=== PATIENT | female | born 1945 | race Caucasian/White ===

== ENCOUNTER 2017-12-24 14:13 | Emergency (ER) | payer MEDICARE ==
[2017-12-24] MEDS ORDERED: ACETAMINOPHEN 325 MG TABLET PO ONE (14:20)
[2017-12-24 14:25] VITALS: BP 124/80
--- NOTE | 2017-12-24 15:59 | ER Document Report ---
ED General - General Chief Complaint: Fall Stated Complaint: FALL, KNEE PAIN Time Seen by Provider: 12/24/17 15:28 Mode of Arrival: Wheelchair Information source: Patient Notes: 72-year-old female presents with complaints of knee left foot and ankle pain after mechanical fall while in the shower. Patient denies any numbness weakness. Notes it hurts when she ambulates. Patient denies any other injuries. TRAVEL OUTSIDE OF THE [place] IN LAST 30 DAYS: No - HPI Onset: Just prior to arrival Onset/Duration: Sudden Quality of pain: Achy Severity: Mild Pain Level: 1 Associated symptoms: Body/muscle aches Exacerbated by: Movement, Walking Relieved by: Denies Similar symptoms previously: No Recently seen / treated by doctor: No - Related Data Allergies/Adverse Reactions: Penicillins Allergy (Verified 12/24/17 14:19) Sulfa (Sulfonamide Antibiotics) Allergy (Verified 12/24/17 14:19) Past Medical History - Social History Smoking Status: Current Every Day Smoker Cigarette use (# per day): Yes Chew tobacco use (# tins/day): No Smoking Education Provided: No Frequency of alcohol use: Social Drug Abuse: None Family History: Reviewed & Not Pertinent Patient has suicidal ideation: No Patient has homicidal ideation: No - Past Medical History Cardiac Medical History: Reports: Hx Hypercholesterolemia, Hx Hypertension Pulmonary Medical History: Reports: Hx Asthma, Hx COPD Renal/ Medical History: Denies: Hx Peritoneal Dialysis GI Medical History: Reports: Hx Gastroesophageal Reflux Disease Musculoskeltal Medical History: Reports Hx Arthritis Past Surgical History: Reports: Hx Section, Hx Hysterectomy, Hx Orthopedic Surgery Review of Systems - Review of Systems Notes: REVIEW OF SYSTEMS: CONSTITUTIONAL : Denies fever, chills, or sweats. Denies recent illness. EENT: Denies eye, ear, throat, or mouth pain or symptoms. Denies nasal or sinus congestion or discharge. Denies throat, tongue, or mouth swelling or difficulty swallowing. CARDIOVASCULAR: Denies chest pain. Denies palpitations or racing or irregular heart beat. Denies ankle edema. RESPIRATORY: Denies cough, cold, or chest congestion. Denies shortness of breath, difficulty breathing, or wheezing. GASTROINTESTINAL: Denies abdominal pain or distention. Denies nausea, vomiting , or diarrhea. Denies blood in vomitus, stools, or per rectum. Denies black, tarry stools. Denies constipation. GENITOURINARY: Denies difficulty urinating, painful urination, burning, frequency, blood in urine, or discharge. FEMALE GENITOURINARY: Denies vaginal bleeding, heavy or abnormal periods, irregular periods. Denies vaginal discharge or odor. MUSCULOSKELETAL: Admits left knee left ankle and foot pain SKIN: Denies rash, lesions or sores. HEMATOLOGIC : Denies easy bruising or bleeding. LYMPHATIC: Denies swollen, enlarged glands. NEUROLOGICAL: Denies confusion or altered mental status. Denies passing out or loss of consciousness. Denies dizziness or lightheadedness. Denies headache. Denies weakness or paralysis or loss of use of either side. Denies problems with gait or speech. Denies sensory loss, numbness, or tingling. Denies seizures. PSYCHIATRIC: Denies anxiety or stress. Denies depression, suicidal ideation, or homicidal ideation. ALL OTHER SYSTEMS REVIEWED AND NEGATIVE. PHYSICAL EXAMINATION: GENERAL: Well-appearing, well-nourished and in no acute distress. HEAD: Atraumatic, normocephalic. EYES: Pupils equal round and reactive to light, extraocular movements intact, conjunctiva are normal. ENT: Nares patent, oropharynx clear without exudates. Moist mucous membranes. NECK: Normal range of motion, supple without lymphadenopathy LUNGS: Breath sounds clear to auscultation bilaterally and equal. No wheezes rales or rhonchi. HEART: Regular rate and rhythm without murmurs ABDOMEN: Soft, nontender, nondistended abdomen. No guarding, no rebound. No masses appreciated. Female : deferred Musculoskeletal: knee pain with rom, no laxity,mild left foot pain, no abnormality noted NEUROLOGICAL: Cranial nerves grossly intact. Normal speech, normal gait. Normal sensory, motor exams PSYCH: Normal mood, normal affect. SKIN: Warm, Dry, normal turgor, no rashes or lesions noted. Dictation was performed using [employer] voice recognition software Physical Exam - Vital signs Vitals: Temp Pulse Resp BP Pulse Ox 98.4 F 85 14 124/80 98 12/24/17 14:23 12/24/17 14:23 12/24/17 14:23 12/24/17 14:23 12/24/17 14:23 Course - Re-evaluation Re-evalutation: 12/24/17 16:46 X-rays noted no acute abnormality, no fractures noted soft tissue swelling is seen. Patient will be given pain control copies of imaging have been provided to her she is otherwise stable After performing a Medical Screening Examination, I estimate there is LOW risk for INTRACRANIAL HEMORRHAGE, UNSTABLE SPINE FRACTURE, CENTRAL CORD SYNDROME, CAUDA EQUINA, THORACIC AORTIC DISSECTION, PNEUMOTHORAX, PERFORATED BOWEL, RUPTURED ABDOMINAL AORTIC ANEURYSM, ACUTE TENDON RUPTURE, COMPARTMENT SYNDROME, or OPEN FRACTURE, thus I consider the discharge disposition reasonable. Also, there is no evidence or peritonitis, sepsis, or toxicity. I have reevaluated this patient multiple times and no significant life threatening changes are noted. The patient and I have discussed the diagnosis and risks, and we agree with discharging home to follow-up with their primary doctor with the understanding that symptoms and presentations can change. We also discussed returning to the Emergency Department immediately if new or worsening symptoms occur. We have discussed the symptoms which are most concerning (e.g., bloody stool, fever, changing or worsening pain, vomiting) that necessitate immediate return. - Vital Signs Vital signs: Temp Pulse Resp BP Pulse Ox 98.4 F 85 14 124/80 98 12/24/17 14:23 12/24/17 14:23 12/24/17 14:23 12/24/17 14:23 12/24/17 14:23 - Diagnostic Test Radiology reviewed: Image reviewed - soft tissue swelling for foot, Reports reviewed Discharge - Discharge Clinical Impression: Fall Qualifiers: Encounter type: initial encounter Qualified Code(s): W19.XXXA - Unspecified fall, initial encounter Contusion Qualifiers: Encounter type: initial encounter Contusion area: foot Laterality: left Qualified Code(s): S90.32XA - Contusion of left foot, initial encounter Leg pain Qualifiers: Laterality: left Qualified Code(s): M79.605 - Pain in left leg Condition: Stable Disposition: HOME, SELF-CARE Instructions: Contusion ([facility]) Additional Instructions: Follow up with your physician tomorrow for further care or return to the ED IMMEDIATELY if symptoms worsen or new concerns occur. If you cannot afford to follow up with your primary care physician a list of low cost clinics have been provided at the end of your discharge papers as well. Prescriptions: Oxycodone HCl/Acetaminophen [Percocet 5-325 mg Tablet] 1 - 2 tab PO Q4H PRN #15 tablet PRN Reason:
--- NOTE | 2017-12-24 16:10 | RADIOLOGY REPORT (SQ) ---
EXAM DESCRIPTION: KNEE LEFT 4 VIEW COMPLETED DATE/TIME: 12/24/2017 3:59 pm REASON FOR STUDY: fall COMPARISON: None. NUMBER OF VIEWS: Four views. TECHNIQUE: AP, lateral, and both oblique radiographic images acquired of the left knee. LIMITATIONS: None. FINDINGS: MINERALIZATION: Normal. BONES: No acute fracture or dislocation. No worrisome bone lesions. JOINT: Small effusion. SOFT TISSUES: No soft tissue swelling. No radio-opaque foreign body. OTHER: No other significant finding. IMPRESSION: Small joint effusion. TECHNICAL DOCUMENTATION: JOB ID: [id number] [employer]- All Rights Reserved Reading location - IP/workstation name: [email or web address]
--- NOTE | 2017-12-24 16:11 | RADIOLOGY REPORT (SQ) ---
EXAM DESCRIPTION: ANKLE LEFT COMPLETE COMPLETED DATE/TIME: 12/24/2017 3:59 pm REASON FOR STUDY: fall COMPARISON: None. NUMBER OF VIEWS: Three views. TECHNIQUE: AP, lateral, and oblique radiographic images acquired of the left ankle. LIMITATIONS: None. FINDINGS: MINERALIZATION: Normal. BONES: No acute fracture or dislocation. No worrisome bone lesions. JOINTS: No effusions. SOFT TISSUES: Swelling over lateral ankle. No foreign body. OTHER: Calcaneal spurs. IMPRESSION: Soft tissue injury. TECHNICAL DOCUMENTATION: JOB ID: [id number] [employer]- All Rights Reserved Reading location - IP/workstation name: [email or web address]
--- NOTE | 2017-12-24 16:12 | RADIOLOGY REPORT (SQ) ---
EXAM DESCRIPTION: FOOT LEFT COMPLETE COMPLETED DATE/TIME: 12/24/2017 3:59 pm REASON FOR STUDY: fall COMPARISON: None. NUMBER OF VIEWS: Three views. TECHNIQUE: AP, lateral and oblique radiographic images acquired of the left foot. LIMITATIONS: None. FINDINGS: MINERALIZATION: Normal. BONES: No acute fracture or dislocation. No worrisome bone lesions. JOINTS: No effusions. SOFT TISSUES: No soft tissue swelling. No foreign body. OTHER: No other significant finding. IMPRESSION: NEGATIVE STUDY OF THE LEFT FOOT. NO RADIOGRAPHIC EVIDENCE OF ACUTE INJURY. TECHNICAL DOCUMENTATION: JOB ID: [id number] [employer]- All Rights Reserved Reading location - IP/workstation name: [email or web address]
== END 2017-12-24 17:00 | disposition home or self-care (01) ==
LOC: ER 14:13
DX: S90.32XA Contusion of left foot, initial encounter (principal); M79.605 Pain in left leg; M79.672 Pain in left foot; M25.572 Pain in left ankle and joints of left foot; M79.1 Myalgia; W18.2XXA Fall in (into) shower or empty bathtub, initial encounter; F17.210 Nicotine dependence, cigarettes, uncomplicated; I10 Essential (primary) hypertension; J44.9 Chronic obstructive pulmonary disease, unspecified
CPT/HCPCS: 99283; 73610; 73630; 73562; A9270

== ENCOUNTER 2018-08-05 21:45 | Emergency (ER) | payer MEDICARE ==
[2018-08-05 22:14] LABS: ABSOLUTE LYMPHOCYTES (AUTO) 1.1 10^3/uL (0.5-4.7); ABSOLUTE MONOCYTES (AUTO) 0.6 10^3/uL (0.1-1.4); ABSOLUTE NEUT (AUTO) 9.1 10^3/uL (1.7-8.2); BASOPHILS % (AUTO) 0.4 % (0-2); EOSINOPHILS % (AUTO) 0.3 % (0-6); HEMATOCRIT 45.1 % (36.0-47.0); LYMPHOCYTES % (AUTO) 10.3 % (13-45); MEAN CORPUSCULAR HEMOGLOBIN 27.3 pg (27.0-33.4); MEAN CORPUSCULAR HGB CONC 33.3 g/dL (32.0-36.0); MEAN CORPUSCULAR VOLUME 82 fl (80-97); MONOCYTES % (AUTO) 5.7 % (3-13); PLATELET COUNT 281 10^3/uL (150-450); RED CELL DISTRIBUTION WIDTH 14.2 % (11.5-14.0); SEGMENTED NEUTROPHILS % (AUTO) 83.3 % (42-78); TOTAL CELLS COUNTED % (AUTO) 100 %; WHITE BLOOD COUNT 10.9 10^3/uL (4.0-10.5)
[2018-08-05] MEDS ORDERED: NORMAL SALINE 1000 ML 1,000 ML IV ONE (22:34)
[2018-08-05 22:54] LABS: ALANINE AMINOTRANSFERASE 22 U/L (9-52); ALBUMIN 3.4 g/dL (3.5-5.0); ALKALINE PHOSPHATASE 59 U/L (38-126); ANION GAP 12 (5-19); ASPARTATE AMINO TRANSFERASE 26 U/L (14-36); BILIRUBIN,DIRECT 0.3 mg/dL (0.0-0.4); BILIRUBIN,TOTAL 0.5 mg/dL (0.2-1.3); BLOOD UREA NITROGEN 20 mg/dL (7-20); CALCIUM 7.4 mg/dL (8.4-10.2); CARBON DIOXIDE 20 mmol/L (22-30); CHLORIDE 107 mmol/L (98-107); GLUCOSE 98 mg/dL (75-110); LIPASE 154.5 U/L (23-300); POTASSIUM 4.7 mmol/L (3.6-5.0); SODIUM 138.6 mmol/L (137-145); TOTAL PROTEIN 6.1 g/dL (6.3-8.2)
[2018-08-06 00:39] LABS: APPEARANCE,URINE SLIGHTLY-CLOUDY; BILIRUBIN,URINE NEGATIVE (NEGATIVE); COLOR,URINE YELLOW; GLUCOSE, URINE NEGATIVE (NEGATIVE); KETONES,URINE NEGATIVE (NEGATIVE); LEUKOCYTE ESTERASE,URINE NEGATIVE (NEGATIVE); NITRITE,URINE POSITIVE (NEGATIVE); PROTEIN,URINE NEGATIVE (NEGATIVE); URINE SPECIFIC GRAVITY 1.004; UROBILINOGEN,URINE NEGATIVE mg/dL (<2.0)
[2018-08-06] MEDS ORDERED: NORMAL SALINE 1000 ML 1,000 ML IV ONE ×2 (00:53→00:57)
[2018-08-06] MEDS ORDERED: ONDANSETRON HCL INJ/PF 4 MG/2 ML SDV IV ONE (00:55)
[2018-08-06] MEDS ORDERED: LOPERAMIDE HCL 2 MG CAPSULE PO ONE (00:57)
--- NOTE | 2018-08-06 01:03 | ER Document Report ---
ED General - General Chief Complaint: Diarrhea Stated Complaint: DIARRHEA Time Seen by Provider: 08/05/18 22:05 Notes: Patient is a 73-year old female with a past medical history of hypertension, COPD without oxygen dependence who presents with 3 days of high volume, watery diarrhea as well as 2 episodes of nonbilious vomiting over the past 3 days. The patient denies any associated abdominal pain. She states that she is having more diarrheal bowel movements than she can count. She has not done anything to try to improve her symptoms. Nothing worsens her symptoms. States that her symptoms have been relatively unchanged since onset. She denies associated fever but states that she has felt fatigued and lightheaded. She has not had syncope. She denies associated chest pain or shortness of breath. No recent uses of antibiotics. No known sick contacts. She has not seen her general doctor regarding today's concerns. She denies a history of similar symptoms in the recent past. TRAVEL OUTSIDE OF THE [place] IN LAST 30 DAYS: No - Related Data Allergies/Adverse Reactions: Penicillins Allergy (Verified 08/05/18 22:22) Sulfa (Sulfonamide Antibiotics) Allergy (Verified 08/05/18 22:22) Past Medical History - General Information source: Patient - Social History Smoking Status: Current Every Day Smoker Frequency of alcohol use: None Drug Abuse: None Lives with: Family Family History: Reviewed & Not Pertinent Patient has suicidal ideation: No Patient has homicidal ideation: No - Past Medical History Cardiac Medical History: Reports: Hx Hypercholesterolemia, Hx Hypertension Pulmonary Medical History: Reports: Hx Asthma, Hx COPD Renal/ Medical History: Denies: Hx Peritoneal Dialysis GI Medical History: Reports: Hx Gastroesophageal Reflux Disease Musculoskeletal Medical History: Reports Hx Arthritis Past Surgical History: Reports: Hx Section, Hx Genitourinary Surgery - bladder sling, Hx Hysterectomy, Hx Orthopedic Surgery - left shoulder Review of Systems - Review of Systems Notes: Constitutional: Negative for fever. HENT: Negative for sore throat. Eyes: Negative for visual changes. Cardiovascular: Negative for chest pain. Positive for lightheadedness Respiratory: Negative for shortness of breath. Gastrointestinal: Positive for vomiting and diarrhea Genitourinary: Negative for dysuria. Musculoskeletal: Negative for back pain. Skin: Negative for rash. Neurological: Negative for headaches, weakness or numbness. 10 point ROS negative except as marked above and in HPI. Physical Exam - Vital signs Vitals: Temp Pulse Resp BP Pulse Ox 98.4 F 108 H 17 85/42 L 95 08/05/18 21:53 08/05/18 21:53 08/05/18 21:53 08/05/18 21:53 08/05/18 21:53 Interpretation: Hypotensive, Tachycardic Notes: PHYSICAL EXAMINATION: GENERAL: Appears mildly fatigued but otherwise very well in appearance HEAD: Atraumatic, normocephalic. EYES: Pupils equal round and reactive to light, extraocular movements intact, sclera anicteric, conjunctiva are normal. ENT: nares patent, oropharynx clear without exudates. Dry mucous membranes. NECK: Normal range of motion, supple without lymphadenopathy LUNGS: Breath sounds clear to auscultation bilaterally and equal. No wheezes rales or rhonchi. HEART: Regular tachycardia without murmurs ABDOMEN: Soft, nontender, normoactive bowel sounds. No guarding, no rebound. No masses appreciated. EXTREMITIES: Normal range of motion, no pitting or edema. No cyanosis. NEUROLOGICAL: No focal neurological deficits. Moves all extremities spontaneously and on command. PSYCH: Normal mood, normal affect. SKIN: Warm, Dry, normal turgor, no rashes or lesions noted. Course - Re-evaluation Re-evalutation: 08/06/18 00:59 Patient presents with 3 days of diarrhea that has been watery and high volume and has had 2 episodes of nonbilious vomiting during that time. Patient was initially hypotensive at time of presentation but this has since resolved. The patient has tolerated oral intake without difficulty. She has no focal abdominal pain on exam. Labs otherwise completely unremarkable. Patient is only had one episode of stooling here in the emergency department. She has had improvement of her nausea after receiving IV Zofran. She has received a total of 3 L of IV fluid here in the emergency department and pressures have remained within acceptable limits. Patient has borderline pulse oximetry at 91-92% which she reports is her baseline with her COPD not new or different today. Patient appears most likely have a viral induced gastroenteritis. Clinical history and exam are not consistent with acute biliary pathology, acute hepatitis, acute pancreatitis, or acute appendicitis. At this time will discharge with return precautions and follow-up recommendations. Verbal discharge instructions given a the bedside and opportunity for questions given. Medication warnings reviewed. Patient is in agreement with this plan and has verbalized understanding of return precautions and the need for primary care follow-up in the next 24-72 hours. - Vital Signs Vital signs: Temp Pulse Resp BP Pulse Ox 98 F 94 20 106/57 L 92 08/06/18 02:39 08/05/18 22:15 08/06/18 02:01 08/06/18 02:01 08/06/18 02:01 - Laboratory Result Diagrams: 08/05/18 22:03 08/05/18 22:35 Laboratory results interpreted by me: 08/05/18 08/05/18 08/06/18 22:03 22:35 00:10 WBC 10.9 H RBC 5.50 H RDW 14.2 H Seg Neutrophils % 83.3 H Lymphocytes % 10.3 L Absolute Neutrophils 9.1 H Carbon Dioxide 20 L Est GFR (Non-Af Amer) 51 L Calcium 7.4 L Total Protein 6.1 L Albumin 3.4 L Urine Blood SMALL H Urine Nitrite POSITIVE H Discharge - Discharge Clinical Impression: Dehydration, Vomiting and diarrhea Hypotension Qualifiers: Hypotension type: unspecified hypotension type Qualified Code(s): I95.9 - Hypotension, unspecified Condition: Good Disposition: HOME, SELF-CARE Additional Instructions: Your symptoms are likely due to a viral illness and should resolve in the next several days. You can take [id number] loperamide also known as Imodium as needed for diarrhea per box instructions. Continue to stay hydrated with plenty of solution such as Gatorade or Pedialyte. You are being prescribed Zofran to take as needed for nausea and vomiting. Please return if you develop severe abdominal pain, pass out, become unable to tolerate any oral fluids for 12 more hours, or any other symptoms that are concerning to you. Prescriptions: Ondansetron [Zofran Odt 4 mg Tablet] 1 - 2 tab PO Q4H PRN #15 tab.rapdis PRN Reason: For Nausea/Vomiting
[2018-08-06 02:09] VITALS: BP 106/57
== END 2018-08-06 02:39 | disposition home or self-care (01) ==
LOC: ER 21:45
DX: R19.7 Diarrhea, unspecified (principal); R11.2 Nausea with vomiting, unspecified; E86.0 Dehydration; I95.9 Hypotension, unspecified; R00.0 Tachycardia, unspecified; J44.9 Chronic obstructive pulmonary disease, unspecified; I10 Essential (primary) hypertension; R53.83 Other fatigue; R42 Dizziness and giddiness; F17.200 Nicotine dependence, unspecified, uncomplicated; Z88.0 Allergy status to penicillin; Z88.2 Allergy status to sulfonamides
CPT/HCPCS: 99284; 96361; 96374; 36415; 87045; 87205; 83690; 85025; 80053; 81001; 87493; A9270; J2405; J7030 ×2

== ENCOUNTER 2018-08-06 14:32 | Emergency (ER) | payer MEDICARE ==
[2018-08-06] MEDS ORDERED: NORMAL SALINE 1000 ML 1,000 ML IV ONE (14:51)
--- NOTE | 2018-08-06 14:51 | ER Document Report ---
ED Medical Screen (RME) - General Chief Complaint: Diarrhea Stated Complaint: DIARRHEA Time Seen by Provider: 08/06/18 14:42 Notes: 73-year-old female patient COPD was seen here about 1 in the morning today with diarrhea for several days and some nausea with vomiting. She was quite hypotensive when she arrived. She was given 3 L of IV fluids, and a discharged home with prescription for Zofran. She states she is continued to have the diarrhea, and now has a pressure headache when she coughs. She has not had any further nausea or vomiting. She moved to this area about 1 month ago from [place] and has not established with a local medical doctor. I have greeted and performed a rapid initial assessment of this patient. A comprehensive ED assessment and evaluation of the patient, analysis of test results and completion of the medical decision making process will be conducted by additional ED providers. TRAVEL OUTSIDE OF THE [place] IN LAST 30 DAYS: No - Related Data Allergies/Adverse Reactions: Penicillins Allergy (Verified 08/06/18 14:34) Sulfa (Sulfonamide Antibiotics) Allergy (Verified 08/06/18 14:34) Past Medical History - Social History Chew tobacco use (# tins/day): No Frequency of alcohol use: None Drug Abuse: None - Past Medical History Cardiac Medical History: Reports: Hx Hypercholesterolemia, Hx Hypertension Pulmonary Medical History: Reports: Hx Asthma, Hx COPD Renal/ Medical History: Denies: Hx Peritoneal Dialysis GI Medical History: Reports: Hx Gastroesophageal Reflux Disease Musculoskeltal Medical History: Reports Hx Arthritis Past Surgical History: Reports: Hx Section, Hx Genitourinary Surgery - bladder sling, Hx Hysterectomy, Hx Orthopedic Surgery - left shoulder Physical Exam - Vital signs Vitals: Temp Pulse Resp BP Pulse Ox 98.4 F 96 16 112/57 L 94 08/06/18 14:36 08/06/18 14:36 08/06/18 14:36 08/06/18 14:36 08/06/18 14:36 Course - Vital Signs Vital signs: Temp Pulse Resp BP Pulse Ox 98.4 F 96 16 112/57 L 94 08/06/18 14:36 08/06/18 14:36 08/06/18 14:36 08/06/18 14:36 08/06/18 14:36
[2018-08-06 15:25] LABS: ABSOLUTE LYMPHOCYTES (AUTO) 1.3 10^3/uL (0.5-4.7); ABSOLUTE MONOCYTES (AUTO) 0.7 10^3/uL (0.1-1.4); ABSOLUTE NEUT (AUTO) 5.5 10^3/uL (1.7-8.2); BASOPHILS % (AUTO) 0.2 % (0-2); EOSINOPHILS % (AUTO) 0.3 % (0-6); HEMATOCRIT 41.5 % (36.0-47.0); HEMOGLOBIN 13.7 g/dL (12.0-15.5); LYMPHOCYTES % (AUTO) 17.1 % (13-45); MEAN CORPUSCULAR HEMOGLOBIN 27.5 pg (27.0-33.4); MEAN CORPUSCULAR HGB CONC 33.1 g/dL (32.0-36.0); MEAN CORPUSCULAR VOLUME 83 fl (80-97); MONOCYTES % (AUTO) 8.9 % (3-13); PLATELET COUNT 236 10^3/uL (150-450); RED CELL DISTRIBUTION WIDTH 14.3 % (11.5-14.0); SEGMENTED NEUTROPHILS % (AUTO) 73.5 % (42-78); TOTAL CELLS COUNTED % (AUTO) 100 %; WHITE BLOOD COUNT 7.5 10^3/uL (4.0-10.5)
[2018-08-06] MEDS ORDERED: BENZONATATE 100 MG CAPSULE PO STA (15:32)
[2018-08-06] MEDS ORDERED: METHYLPREDNISOLONE INJ 125 MG/2 ML SDV IV ONE (15:33)
[2018-08-06] MEDS ORDERED: DICYCLOMINE HCL 10 MG CAPSULE PO ONE (15:33)
[2018-08-06] MEDS ORDERED: ONDANSETRON HCL INJ/PF 4 MG/2 ML SDV IV ONE (15:33)
[2018-08-06] MEDS ORDERED: IPRATROPIUM/ALBUTEROL 0.5-2.5 MG/3 ML AMPUL NEB ONE (15:34)
[2018-08-06 15:37] LABS: ALANINE AMINOTRANSFERASE 24 U/L (9-52); ALBUMIN 3.8 g/dL (3.5-5.0); ALKALINE PHOSPHATASE 55 U/L (38-126); ANION GAP 10 (5-19); ASPARTATE AMINO TRANSFERASE 33 U/L (14-36); BILIRUBIN,DIRECT 0.3 mg/dL (0.0-0.4); BILIRUBIN,TOTAL 0.4 mg/dL (0.2-1.3); BLOOD UREA NITROGEN 13 mg/dL (7-20); CALCIUM 7.5 mg/dL (8.4-10.2); CARBON DIOXIDE 23 mmol/L (22-30); CHLORIDE 109 mmol/L (98-107); GLUCOSE 81 mg/dL (75-110); POTASSIUM 4.9 mmol/L (3.6-5.0); SODIUM 141.9 mmol/L (137-145); TOTAL PROTEIN 6.7 g/dL (6.3-8.2)
--- NOTE | 2018-08-06 15:40 | ER Document Report ---
ED General - General Chief Complaint: Diarrhea Stated Complaint: DIARRHEA Time Seen by Provider: 08/06/18 14:42 Mode of Arrival: Ambulatory Information source: Patient, Relative Notes: Patient is a 73-year-old female who returns to the emergency room with a continuing complaint of diarrhea with now also headache and neck pain from coughing. Patient states she was seen here yesterday for having diarrhea for the past several days she was given a lot of fluids and was told to go home which she agreed with and to come back if anything change. Patient is back today because she is not feeling any better has not had a full meal since Wednesday. States anything she eats goes right through her. She also states that she has been going into coughing fits that have caused her to gain a headache and neck pain. She denies any fever denies any vomiting but states she came close to vomiting because of the coughing. She denies chest pain and she also denies shortness of breath. She states she is pretty much baseline for her COPD status. She also interjects that about a year ago she had walking pneumonia for 6 months before it was discovered. TRAVEL OUTSIDE OF THE [place] IN LAST 30 DAYS: No - HPI Onset: Other - 3-4 days Onset/Duration: Gradual, Worse Quality of pain: Achy Severity: Moderate Pain Level: 3 Associated symptoms: Body/muscle aches, Chills, Nonproductive cough, Diarrhea, Headache Exacerbated by: Coughing Relieved by: Denies Similar symptoms previously: Yes Recently seen / treated by doctor: Yes - Related Data Allergies/Adverse Reactions: Penicillins Allergy (Verified 08/06/18 14:34) Sulfa (Sulfonamide Antibiotics) Allergy (Verified 08/06/18 14:34) Past Medical History - General Information source: Patient - Social History Smoking Status: Current Every Day Smoker Cigarette use (# per day): Yes - Patient avoids the answer Chew tobacco use (# tins/day): No Frequency of alcohol use: None Drug Abuse: None Family History: Reviewed & Not Pertinent Patient has suicidal ideation: No Patient has homicidal ideation: No - Past Medical History Cardiac Medical History: Reports: Hx Hypercholesterolemia, Hx Hypertension Pulmonary Medical History: Reports: Hx Asthma, Hx COPD Renal/ Medical History: Denies: Hx Peritoneal Dialysis GI Medical History: Reports: Hx Gastroesophageal Reflux Disease Musculoskeletal Medical History: Reports Hx Arthritis Past Surgical History: Reports: Hx Section, Hx Genitourinary Surgery - bladder sling, Hx Hysterectomy, Hx Orthopedic Surgery - left shoulder Review of Systems - Review of Systems Constitutional: Weakness EENT: Nose congestion, Sinus pressure, Sinus discharge Cardiovascular: No symptoms reported Respiratory: See HPI, Cough, Hurts to breathe, Sputum, Wheezing Gastrointestinal: See HPI, Diarrhea, Nausea, Vomiting Genitourinary: No symptoms reported Female Genitourinary: No symptoms reported Musculoskeletal: Neck pain Skin: No symptoms reported Hematologic/Lymphatic: No symptoms reported Neurological/Psychological: No symptoms reported -: Yes All other systems reviewed and negative Physical Exam - Vital signs Vitals: Temp Pulse Resp BP Pulse Ox 98.4 F 96 16 112/57 L 94 08/06/18 14:36 08/06/18 14:36 08/06/18 14:36 08/06/18 14:36 08/06/18 14:36 Interpretation: Hypotensive - Notes Notes: Patient is a well-nourished well-developed female in no apparent distress. She does appear somewhat uncomfortable though. PHYSICAL EXAMINATION: GENERAL: As stated patient is a well-nourished well-developed female who is in no apparent distress however she does appear somewhat uncomfortable. HEAD: Atraumatic, normocephalic. EYES: Pupils equal round and reactive to light, extraocular movements intact, conjunctiva are normal. ENT: Nares patent, oropharynx clear without exudates. Moist mucous membranes. NECK: Normal range of motion, supple without lymphadenopathy patient does not display any sign of meningismal problems. LUNGS: Auscultation patient's lung johnson show she has bilateral breath sounds breath sounds are moderately to severely decreased throughout both lung johnson. She has noticeable inspiratory expiratory wheeze with a faint amount of rhonchi in the upper airway noted on inspiration. HEART: Regular rate and rhythm without murmurs ABDOMEN: Soft, nontender, nondistended abdomen. No guarding, no rebound. No masses appreciated. Female : deferred Musculoskeletal: Patient displays full range of motion with bilateral lower extremities as well as bilateral upper extremities. DTRs in the lower extremities are normal. DTRs in the upper extremities are normal. NEUROLOGICAL: Normal speech, normal gait. PSYCH: Normal mood, normal affect. SKIN: Warm, Dry, Course - Re-evaluation Re-evalutation: 08/06/18 15:40 She is stated that she is gone is such coughing fits that the top of her head feels like it is going to explode in her neck is got such pain she has a hard time moving it without increasing the pain and discomfort. Given patient's description and how the headache seems to come on after the coughing fits and it is still present along with the description of the severe pain in her neck when she moves and it catches her I felt it necessary to go ahead and perform a CT of the neck as well. Patient's movements have indicated that there is some discomfort and pain. This does not appear to be a meningismal kind of discomfort or pain it is more of a musculoskeletal herniated disc type presentation. Patient does not have any radiculopathy from the cervical pain down either arm. 08/06/18 17:55 Reexamination of patient shows currently that her CT head and neck are negative. Her chest x-ray showed borderline congestion but not calling it CHF. Labs all look great her chemistries were fine her WBC was good. Waiting on a urine at this point. I have gone back and reassess patient she is doing much better after receiving the Solu-Medrol and the neb treatment and the Tessalon Perle. When she thinks about taking a deep breath she starts coughing hard that pain goes to her neck and the head. At this point I am just double checking the urine to make sure there is no UTI or if there is a UTI and we will treat accordingly. I told patient I want her to start doing her neb treatments at home on a regular basis I will end up putting her on Tylenol threes for her cough and she will take him when eat some food. Daughter even admits she looks much better. Patient also states that the Bentyl seems to have slowed down her diarrhea some. I told her we do not want to go from a lot to 0 and have constipation on the other end of it. At this time were waiting for the year and will make a decision on where patient goes at that point. 08/06/18 19:14 patient has actually improved with the Bentyl she was found to have a positive urinary tract infection because she has positive nitrites showing up on her urine. Given that she has also gotten relief with the steroids and her breathing is getting better we are also going to treat this is COPD exacerbation. So patient will get all a few different medications tonight. Daughter is actually very pleased that we were able to find the urinary tract infection and also in the she is getting better. She also prays that the physician that she had last night and the care that she received that as well. Patient also wants to know the name of urologist - Vital Signs Vital signs: Temp Pulse Resp BP Pulse Ox 98.4 F 96 16 112/57 L 94 08/06/18 14:36 08/06/18 14:36 08/06/18 14:36 08/06/18 14:36 08/06/18 14:36 - Laboratory Result Diagrams: 08/06/18 15:00 08/06/18 15:00 Laboratory results interpreted by me: 08/06/18 08/06/18 08/06/18 15:00 15:00 18:30 RDW 14.3 H Chloride 109 H Calcium 7.5 L Urine Blood SMALL H Urine Nitrite POSITIVE H Discharge - Discharge Clinical Impression: Gastroenteritis UTI (urinary tract infection) Qualifiers: Urinary tract infection type: acute cystitis Hematuria presence: with hematuria Qualified Code(s): N30.01 - Acute cystitis with hematuria COPD (chronic obstructive pulmonary disease) Qualifiers: COPD type: COPD with acute exacerbation Qualified Code(s): J44.1 - Chronic obstructive pulmonary disease with (acute) exacerbation Condition: Stable Disposition: HOME, SELF-CARE Instructions: Gastroenteritis (adult) ([facility]), Nitrofurantoin ([facility]), Oral Narcotic Medication ([facility]), Urinary Tract Infection ([facility]), Family Physicians / Practices Additional Instructions: Home and rest. As we discussed to be on a few different medications in order to get you a complete turnaround. I am going to put you on an antibiotic for UTI will give you a Diflucan pill set him again in a yeast infection. 6-year- old inspiratory expiratory wheezing will place you a little short taper of steroids and he must pick pulling machine tender your nebulizer and continued to really do that every 4-6 hours for the next couple of days at minimum. Also put you on a medication for it we gave you here will help stop your cramping of her abdomen. Should you have any concerns or problems return to ER for a recheck. As far as local family practice physician I will give you a handout to you may choose. At this time we do not have a local urology group in [facility]. So you may want to contact the urologist at [facility] urology you can look them up and get their phone number I do not have it currently. Prescriptions: Acetaminophen with Codeine [Tylenol #3 Tablet] 1 each PO Q4HP PRN #20 tablet PRN Reason: Fluconazole [Diflucan] 150 mg PO ONCE PRN #1 tablet PRN Reason: Hyoscyamine Sulfate [Levsin 0.125 Tablet] 0.25 mg PO Q4 PRN #30 tablet PRN Reason: Nitrofurantoin Macrocrystal [Macrodantin] 100 mg PO BID #20 capsule Prednisone 10 mg PO ASDIR 6 Days #1 tab.ds.pk Forms: Elevated Blood Pressure Referrals: [facility] [NO LOCAL MD] - Follow up as needed
--- NOTE | 2018-08-06 17:10 | RADIOLOGY REPORT (SQ) ---
EXAM DESCRIPTION: CT CERVICAL SPINE WITHOUT; CT HEAD WITHOUT COMPLETED DATE/TIME: 08/06/2018 4:30 pm REASON FOR STUDY: Pain; Headache COMPARISON: None. TECHNIQUE: Axial images acquired through the brain and cervical spine without intravenous contrast. Images reviewed with brain, subdural, lung, soft tissue and bone windows. Reconstructed coronal and sagittal MPR images reviewed. Images stored on PACS. All CT scanners at this facility use dose modulation, iterative reconstruction, and/or weight based d osing when appropriate to reduce radiation dose to as low as reasonably achievable (ALARA). [facility]: Dose Right [facility]: CareDose [facility]: Dose Right [facility]: Teradose 4D [facility]: [employer] RADIATION DOSE: CT Rad equipment meets quality standard of care and radiation dose reduction techniq ues were employed. CTDIvol: 21.4 mGy. DLP: 471 mGy-cm.; CT Rad equipment meets quality standard of ca re and radiation dose reduction techniques were employed. CTDIvol: 53.2 mGy. DLP: 1124 mGy-cm. mGy. LIMITATIONS: None. FINDINGS: Brain No hemorrhage or mass or shift. Normal CSF containing spaces. Minimal patchy small vessel disease. Orbits intact. Clear paranasal sinuses. Bones intact. Cervical spine Lower cervical spondylosis. No posttraumatic malalignment or fracture identified. Soft tissues norm al. Lung apices clear. IMPRESSION: 1. No acute intracranial abnormality. Suspect mild chronic small vessel disease. 2. C ervical spine degenerative changes without evidence of fracture. TECHNICAL DOCUMENTATION: JOB ID: [id number] Quality ID # [id number]: Final reports with documentation of one or more dose reduction techniques (e.g., Au tomated exposure control, adjustment of the mA and/or kV according to patient size, use of iterative reconstruction technique) 2010 [employer]- All Rights Reserved Reading location - IP/workstation name: [email or web address]
--- NOTE | 2018-08-06 17:12 | RADIOLOGY REPORT (SQ) ---
EXAM DESCRIPTION: CHEST 2 VIEWS COMPLETED DATE/TIME: 08/06/2018 4:33 pm REASON FOR STUDY: Cough COMPARISON: None. TECHNIQUE: Frontal and lateral radiographic views of the chest acquired. NUMBER OF VIEWS: Two view. LIMITATIONS: None. FINDINGS: LUNGS AND PLEURA: Diffuse mild interstitial changes. No consolidation. No pleural fluid. MEDIASTINUM AND HILAR STRUCTURES: No masses or contour abnormalities. HEART AND VASCULAR STRUCTURES: Heart normal size. No evidence for failure. BONES: No acute findings. HARDWARE: None in the chest. OTHER: No other significant finding. IMPRESSION: Mild interstitial changes in the lungs, chronicity and significance indeterminate. No c onsolidating bacterial pneumonia. No clear evidence that the findings are related to congestive fail ure. TECHNICAL DOCUMENTATION: JOB ID: [id number] [employer]- All Rights Reserved Reading location - IP/workstation name: [email or web address]
[2018-08-06 18:56] LABS: APPEARANCE,URINE SLIGHTLY-CLOUDY; BILIRUBIN,URINE NEGATIVE (NEGATIVE); COLOR,URINE YELLOW; GLUCOSE, URINE NEGATIVE (NEGATIVE); KETONES,URINE NEGATIVE (NEGATIVE); LEUKOCYTE ESTERASE,URINE NEGATIVE (NEGATIVE); NITRITE,URINE POSITIVE (NEGATIVE); PROTEIN,URINE NEGATIVE (NEGATIVE); URINE SPECIFIC GRAVITY 1.009; UROBILINOGEN,URINE NEGATIVE mg/dL (<2.0)
[2018-08-06 19:44] VITALS: BP 108/56
== END 2018-08-06 19:52 | disposition home or self-care (01) ==
LOC: ER 14:32
DX: K52.9 Noninfective gastroenteritis and colitis, unspecified (principal); N30.01 Acute cystitis with hematuria; J44.1 Chronic obstructive pulmonary disease with (acute) exacerbation; R11.2 Nausea with vomiting, unspecified; R51 Headache; M54.2 Cervicalgia; F17.200 Nicotine dependence, unspecified, uncomplicated; E78.00 Pure hypercholesterolemia, unspecified; I10 Essential (primary) hypertension; Z88.0 Allergy status to penicillin; Z88.2 Allergy status to sulfonamides; Z90.710 Acquired absence of both cervix and uterus
CPT/HCPCS: 94640; 99284; 96361; 96374; 96375; 36415; 85025; 80053; 81001; 71046; 70450; 72125; A9270 ×3; J2930; J2405; J7030; J3490; J7620

== ENCOUNTER 2018-08-13 17:31 | Inpatient (IN) | payer MEDICARE ==
--- NOTE | 2018-08-13 18:00 | ER Document Report ---
ED Medical Screen (RME) - General Chief Complaint: General Weakness Stated Complaint: CHILLS Time Seen by Provider: 08/13/18 17:44 Notes: 73-year-old female to emergency department for evaluation of chills and fever. Patient states that she was seen here last week and diagnosed with a urinary tract infection. Has been on antibiotics. Today she cannot stop shaking. Feels cold all over. Increased frequency of urination. Daughter states that she found her on the floor this morning. Patient does not remember this. I have greeted and performed a rapid initial assessment of this patient. A comprehensive ED assessment and evaluation of the patient, analysis of test results and completion of the medical decision making process will be conducted by additional ED providers. TRAVEL OUTSIDE OF THE [place] IN LAST 30 DAYS: No - Related Data Allergies/Adverse Reactions: Penicillins Allergy (Verified 08/13/18 17:34) Sulfa (Sulfonamide Antibiotics) Allergy (Verified 08/13/18 17:34) Past Medical History - Past Medical History Cardiac Medical History: Reports: Hx Hypercholesterolemia, Hx Hypertension Pulmonary Medical History: Reports: Hx Asthma, Hx COPD Renal/ Medical History: Denies: Hx Peritoneal Dialysis GI Medical History: Reports: Hx Gastroesophageal Reflux Disease Musculoskeltal Medical History: Reports Hx Arthritis Past Surgical History: Reports: Hx Section, Hx Genitourinary Surgery - bladder sling, Hx Hysterectomy, Hx Orthopedic Surgery - left shoulder Physical Exam - Vital signs Vitals: Temp Pulse Resp BP Pulse Ox 97.8 F 109 H 20 143/67 H 99 08/13/18 17:45 08/13/18 17:45 08/13/18 17:45 08/13/18 17:45 08/13/18 17:45 Course - Vital Signs Vital signs: Temp Pulse Resp BP Pulse Ox 97.8 F 109 H 20 143/67 H 99 08/13/18 17:45 08/13/18 17:45 08/13/18 17:45 08/13/18 17:45 08/13/18 17:45
[2018-08-13 19:06] LABS: ABSOLUTE BASOPHILS # (AUTO) 0.1 10^3/uL (0.0-0.2); ABSOLUTE EOSINOPHILS # (AUTO) 0.4 10^3/uL (0.0-0.6); ABSOLUTE LYMPHOCYTES (AUTO) 1.2 10^3/uL (0.5-4.7); ABSOLUTE MONOCYTES (AUTO) 1.1 10^3/uL (0.1-1.4); ABSOLUTE NEUT (AUTO) 16.7 10^3/uL (1.7-8.2); BASOPHILS % (AUTO) 0.3 % (0-2); EOSINOPHILS % (AUTO) 2.3 % (0-6); HEMATOCRIT 48.1 % (36.0-47.0); HEMOGLOBIN 15.8 g/dL (12.0-15.5); MEAN CORPUSCULAR HEMOGLOBIN 26.9 pg (27.0-33.4); MEAN CORPUSCULAR HGB CONC 32.8 g/dL (32.0-36.0); MEAN CORPUSCULAR VOLUME 82 fl (80-97); MONOCYTES % (AUTO) 5.7 % (3-13); PLATELET COUNT 267 10^3/uL (150-450); RED BLOOD COUNT 5.88 10^6/uL (3.72-5.28); RED CELL DISTRIBUTION WIDTH 14.2 % (11.5-14.0); SEGMENTED NEUTROPHILS % (AUTO) 85.7 % (42-78); TOTAL CELLS COUNTED % (AUTO) 100 %; WHITE BLOOD COUNT 19.5 10^3/uL (4.0-10.5)
[2018-08-13 19:12] LABS: ALANINE AMINOTRANSFERASE 55 U/L (9-52); ALBUMIN 4.1 g/dL (3.5-5.0); ALKALINE PHOSPHATASE 82 U/L (38-126); ANION GAP 15 (5-19); ASPARTATE AMINO TRANSFERASE 42 U/L (14-36); BILIRUBIN,DIRECT 0.4 mg/dL (0.0-0.4); BILIRUBIN,TOTAL 0.8 mg/dL (0.2-1.3); BLOOD UREA NITROGEN 32 mg/dL (7-20); CALCIUM 8.9 mg/dL (8.4-10.2); CARBON DIOXIDE 28 mmol/L (22-30); CHLORIDE 96 mmol/L (98-107); CREATINE KINASE 22 U/L (30-135); GLUCOSE 113 mg/dL (75-110); POTASSIUM 4.5 mmol/L (3.6-5.0); SODIUM 138.8 mmol/L (137-145); TOTAL PROTEIN 7.6 g/dL (6.3-8.2)
--- NOTE | 2018-08-13 19:38 | RADIOLOGY REPORT (SQ) ---
EXAM DESCRIPTION: CHEST SINGLE VIEW COMPLETED DATE/TIME: 08/13/2018 7:27 pm REASON FOR STUDY: sob COMPARISON: 08/06/2018 EXAM PARAMETERS: NUMBER OF VIEWS: One view. TECHNIQUE: Single frontal radiographic view of the chest acquired. RADIATION DOSE: NA LIMITATIONS: None. FINDINGS: LUNGS AND PLEURA: No opacities, masses or pneumothorax. No pleural effusion. MEDIASTINUM AND HILAR STRUCTURES: No masses. Contour normal. HEART AND VASCULAR STRUCTURES: Heart normal in size. Normal vasculature. BONES: No acute findings. HARDWARE: None in the chest. OTHER: No other significant finding. IMPRESSION: NO ACUTE RADIOGRAPHIC FINDING IN THE CHEST. TECHNICAL DOCUMENTATION: JOB ID: [id number] [employer]- All Rights Reserved Reading location - IP/workstation name: [email or web address]
[2018-08-13 20:12] LABS: A TYPE INFLUENZA AG NEGATIVE (NEGATIVE); B INFLUENZA AG NEGATIVE (NEGATIVE)
[2018-08-13] MEDS ORDERED: RINGERS SOLUTION,LACTATED 2,000 ML IV ONE (20:22)
--- NOTE | 2018-08-13 20:56 | ER Document Report ---
ED General - General Chief Complaint: General Weakness Stated Complaint: CHILLS Time Seen by Provider: 08/13/18 17:44 Notes: Patient is a 73-year old female with a past medical history of COPD, hypertension, hyperlipidemia, who presents with weakness, fatigue, fever, body aches and feeling generally unwell. The patient has been seen on 2 separate occasions in the emergency department for diarrhea and vomiting but had been overall improved from the symptoms over the last 48 hours. Apparently last night she felt so weak she actually laid on the ground her bathroom was unable to get up. She did not sustain any trauma at that point. The patient denies any history of feeling this way in the past. She has not seen her general doctor. She has not trying to improve her symptoms and has not noted things worsen her symptoms. Her history is otherwise limited secondary to her ill appearance and being somewhat lethargic. TRAVEL OUTSIDE OF THE [place] IN LAST 30 DAYS: No - Related Data Allergies/Adverse Reactions: Penicillins Allergy (Verified 08/13/18 18:01) Sulfa (Sulfonamide Antibiotics) Allergy (Verified 08/13/18 18:01) Past Medical History - General Information source: Patient - Social History Smoking Status: Current Every Day Smoker Chew tobacco use (# tins/day): No Frequency of alcohol use: None Drug Abuse: None Lives with: Family Family History: Reviewed & Not Pertinent Patient has suicidal ideation: No Patient has homicidal ideation: No - Past Medical History Cardiac Medical History: Reports: Hx Hypercholesterolemia, Hx Hypertension Pulmonary Medical History: Reports: Hx Asthma, Hx COPD Renal/ Medical History: Denies: Hx Peritoneal Dialysis GI Medical History: Reports: Hx Gastroesophageal Reflux Disease Musculoskeletal Medical History: Reports Hx Arthritis Past Surgical History: Reports: Hx Section, Hx Genitourinary Surgery - bladder sling, Hx Hysterectomy, Hx Orthopedic Surgery - left shoulder Review of Systems - Review of Systems Notes: Constitutional: Positive for fever. HENT: Negative for sore throat. Eyes: Negative for visual changes. Cardiovascular: Negative for chest pain. Respiratory: Positive for cough Gastrointestinal: Positive for diarrhea Genitourinary: Negative for dysuria. Musculoskeletal: Negative for back pain. Skin: Negative for rash. Neurological: Negative for headaches, weakness or numbness. 10 point ROS negative except as marked above and in HPI. Physical Exam - Vital signs Vitals: Temp Pulse Resp BP Pulse Ox 97.8 F 109 H 20 143/67 H 99 08/13/18 17:45 08/13/18 17:45 08/13/18 17:45 08/13/18 17:45 08/13/18 17:45 Interpretation: Tachycardic Notes: PHYSICAL EXAMINATION: GENERAL: Patient is unwell in appearance, pale, somewhat listless HEAD: Atraumatic, normocephalic. EYES: Pupils equal round and reactive to light, extraocular movements intact, sclera anicteric, conjunctiva are normal. ENT: nares patent, oropharynx clear without exudates. Very dry mucous membranes. NECK: Normal range of motion, supple without lymphadenopathy LUNGS: Breath sounds clear to auscultation bilaterally and equal. No wheezes rales or rhonchi. HEART: Regular tachycardia without murmurs ABDOMEN: Soft, nontender, normoactive bowel sounds. No guarding, no rebound. No masses appreciated. EXTREMITIES: Normal range of motion, no pitting or edema. No cyanosis. NEUROLOGICAL: No focal neurological deficits. Moves all extremities spontaneously and on command. PSYCH: Somewhat lethargic but oriented x4 SKIN: Warm, diaphoretic, diminished turgor Course - Re-evaluation Re-evalutation: 08/13/18 20:55 Patient presents with a history and labs consistent with severe sepsis. Patient 's lactate is 4, white count 19.8, noted to be tachycardic and likely febrile the time of my assessment. Probable source of a urinary tract infection. Patient was started on Macrobid approximately 1 week ago although no culture was sent at that time. Patient most likely has pyelonephritis given her clinical history but is in guarded condition at this point as she is somewhat altered, quite weak and will require regular and frequent reassessments. I have immediately ordered 2 L of fluid, cefepime for broad-spectrum coverage, I have asked for additional IV access, have placed the patient on cardiac exercise specialist , and will continue to reassess regularly. 08/13/18 21:54 Patient has spiked a temperature to 103 F rectal. She is tachycardic at 108 bpm. Normotensive 136 and 57. On reassessment she remains somewhat lethargic but does continue to respond appropriately. IV fluid resuscitation and antibiotics are ongoing. Laboratories do note associated acute kidney injury. Awaiting urinalysis. Will continue to reassess. 11/17/18 2230 Patient has begun to have deterioration of her blood pressure. Maps are falling into the upper 60s to low 60s. An additional liter of fluid is being administered. Urinalysis is unremarkable. At this point I am not certain of the patient's source of sepsis. She has had multiple symptoms including cough, abdominal pain, diarrhea. At this point given her progressively worsening symptomology and clinical status will proceed with a CT of the chest abdomen pelvis. If patient does not have response to the fluid bolus she will require placement of central line and initiation of vasopressor agents. I have broadened her antibiotic coverage to also include vancomycin and levofloxacin at this point. 08/14/18 00:08 Patient's blood pressure does continue quite borderline. Current blood pressure is 85/38. Awaiting CT results. Heart rate has improved, currently 95. At this point patient will likely require central line placement for vasopressor infusion. 08/14/18 01:52 Patient blood pressure has stabilized after placement of a right internal jugular central line and new deviation of norepinephrine. CT of the chest abdomen pelvis without any obvious source. Patient's vitals at this point are overall much improved. I have discussed with the hospitalist for admission to the ICU and she has accepted. - Vital Signs Vital signs: Temp Pulse Resp BP Pulse Ox 99.9 F 109 H 23 H 121/54 L 95 08/14/18 01:35 08/13/18 17:45 08/14/18 01:41 08/14/18 01:41 08/14/18 01:41 - Laboratory Result Diagrams: 08/13/18 18:43 08/13/18 18:43 Laboratory results interpreted by me: 08/13/18 08/13/18 08/13/18 18:43 18:43 18:43 WBC 19.5 H RBC 5.88 H Hgb 15.8 H Hct 48.1 H MCH 26.9 L RDW 14.2 H Seg Neutrophils % 85.7 H Lymphocytes % 6.0 L Absolute Neutrophils 16.7 H Chloride 96 L BUN 32 H Creatinine 1.41 H Est GFR ( Amer) 44 L Est GFR (Non-Af Amer) 37 L Glucose 113 H Lactic Acid 4.0 H AST 42 H ALT 55 H Creatine Kinase 22 L Urine Protein 08/13/18 08/13/18 20:00 21:25 WBC RBC Hgb Hct MCH RDW Seg Neutrophils % Lymphocytes % Absolute Neutrophils Chloride BUN Creatinine Est GFR ( Amer) Est GFR (Non-Af Amer) Glucose Lactic Acid AST ALT Creatine Kinase < 20 L Urine Protein 30 H - Diagnostic Test Radiology reviewed: Image reviewed, Reports reviewed Radiology results interpreted by me: 08/14/18 02:02 Chest x-ray 1: No acute infiltrate Chest x-ray 2: Right IJ central line in appropriate position. No pneumothorax - EKG Interpretation by Me Additional EKG results interpreted by me: 08/14/18 02:04 Movement interference of EKG. Sinus tachycardia. Rate 103. No ST elevations, no ST depressions. QTC 471. Procedures - Central Line Right Internal jugular Consent obtained: No - Emergent Central line pre-insertion: Sterile PPE donned, Chloraprep applied, Sterile drapes applied Central line lumen type: Triple Anesthetic type: 1% Lidocaine mL's of anesthesia: 5 Ultrasound guided: Yes CM at insertion site: 28 Line secured with sutures: Yes Central line post-insertion: Blood return from lumens, Biopatch applied, Sutured , Sterile dressing applied, Position confirmed w/ CXR Number of attempts: 2 Complications: No Critical Care Note - Critical Care Note Total time excluding time spent on procedures (mins): 75 Comments: Critical care time spent obtaining history from patient or surrogate, discussions with consultants, development of treatment plan with patient or surrogate, evaluation of patient's response to treatment, examination of patient , ordering and performing treatments and interventions, ordering and review of laboratory studies, re-evaluation of patient's condition, ordering and review of radiographic studies and review of old charts Discharge - Discharge Clinical Impression: Severe sepsis, Septic shock, Body aches, Confusion Condition: Good Disposition: ADMITTED INPATIENT Admitting Provider: Hospitalist Unit Admitted: ICU
[2018-08-13] MEDS ORDERED: CEFEPIME 2 GM/D5W RTU 2 GM/50 ML RTUPB IV ONE (21:00)
[2018-08-13] MEDS ORDERED: ACETAMINOPHEN 325 MG TABLET ONE (21:11)
[2018-08-13] MEDS ORDERED: ACETAMINOPHEN 325 MG TABLET PO ONE (21:20)
[2018-08-13] MEDS ORDERED: IPRATROPIUM/ALBUTEROL 0.5-2.5 MG/3 ML AMPUL NEB ONE (21:54)
[2018-08-13 22:05] LABS: APPEARANCE,URINE CLOUDY; BILIRUBIN,URINE NEGATIVE (NEGATIVE); GLUCOSE, URINE NEGATIVE (NEGATIVE); KETONES,URINE NEGATIVE (NEGATIVE); LEUKOCYTE ESTERASE,URINE NEGATIVE (NEGATIVE); NITRITE,URINE NEGATIVE (NEGATIVE); PROTEIN,URINE 30 mg/dL (NEGATIVE); URINE SPECIFIC GRAVITY 1.013; UROBILINOGEN,URINE NEGATIVE mg/dL (<2.0)
[2018-08-13 22:10] LABS: COLOR,URINE DARK YELLOW
[2018-08-13] MEDS ORDERED: RINGERS SOLUTION,LACTATED 1,000 ML IV ONE (23:25)
[2018-08-13] MEDS ORDERED: DIPHENHYDRAMINE HCL 50 MG/ML VIAL IV ONE (23:40)
[2018-08-13] MEDS ORDERED: VANCOMYCIN HCL INJ 1000 MG VIAL IV ONE (23:45)
[2018-08-14] MEDS ORDERED: LEVOFLOXACIN 750 MG/D5W RTU 750 MG/150 ML RTUPB IV ONE
[2018-08-14] MEDS ORDERED: NOREPINEPHRINE BITARTRATE INJ/PF 4 MG/4 ML SDV IV ONE (00:22)
--- NOTE | 2018-08-14 00:29 | RADIOLOGY REPORT (SQ) ---
EXAM DESCRIPTION: CT CHEST, abdomen and pelvis WITH IV CONTRAST COMPLETED DATE/TME: 08/13/2018 23:26 CLINICAL HISTORY: 73 years, Female, sepsis, cough COMPARISON: None. TECHNIQUE: 474 Images stored on PACS. All CT scanners at this facility use dose modulation, iterative reconstruction, and/or weight based dosing when appropriate to reduce radiation dose to as low as reasonably achievable (ALARA). [facility]: Dose Right [facility]: CareDose [facility]: Dose Right [facility]: Teradose 4D [facility]: [employer] LIMITATIONS: None. FINDINGS: CT chest: The mediastinal vasculature enhances normally. Nonspecific nonenlarged as well as enlarged mediastinal and hilar lymph nodes are present. The largest node is in the subcarinal region and measures 3.6 x 1.7 cm. The heart and pericardium are unremarkable. Small hiatal hernia. Osseous structures of the thorax are grossly intact. No pneumothorax. The visualized airways are patent. Minor dependent atelectasis in each lung base. CT abdomen/pelvis: Osseous structures are grossly intact. Fatty infiltrative change to the liver. The spleen, adrenal glands, pancreas, and kidneys are unremarkable. The gallbladder is present. Postsurgical changes consistent with prior anterior abdominal wall hernia repair. Normal appendix. No gross evidence for bowel obstruction. Surgical clip in the left hemipelvis. Sigmoid diverticulosis without CT evidence for diverticulitis. Mild atheromatous change. IMPRESSION: Nonspecific nonenlarged as well as mildly enlarged lymph nodes of the mediastinum, as above. Consider short-term follow-up to ensure stability and/or resolution. Fatty infiltrative change to the liver. Sigmoid diverticulosis. No CT evidence for diverticulitis TECHNICAL DOCUMENTATION: Quality ID # [id number]: Final reports with documentation of one or more dose reduction techniques (e.g., Automated exposure control, adjustment of the mA and/or kV according to patient size, use of iterative reconstruction technique) 2010 [employer]- All Rights Reserved
[2018-08-14] MEDS ORDERED: DEXTROSE 5%-WATER 250 ML with NOREPINEPHRINE BITARTRATE 4 MG IV PRN ×4 (01:01→03:22)
--- NOTE | 2018-08-14 01:24 | RADIOLOGY REPORT (SQ) ---
EXAM DESCRIPTION: XR CHEST 1 VIEW COMPLETED DATE/TME: 08/14/2018 00:00 CLINICAL HISTORY: 73 years, Female, LINE PLACEMENT COMPARISON: 08/13/2018 chest x-ray NUMBER OF VIEWS: 1 TECHNIQUE: View the chest LIMITATIONS: None. FINDINGS: The heart size is normal. Atheromatous change thoracic aorta. Osteopenia. No pneumothorax. Central venous catheter with the tip likely in the cavoatrial junction. Lungs are clear IMPRESSION: Tip of the central line in the cavoatrial junction. No pneumothorax 2010 [employer]- All Rights Reserved
[2018-08-14] MEDS ORDERED: METOCLOPRAMIDE HCL INJ/PF 10 MG/2 ML SDV IV PRN (03:15)
[2018-08-14] MEDS ORDERED: IPRATROPIUM/ALBUTEROL 0.5-2.5 MG/3 ML AMPUL NEB PRN (03:15)
[2018-08-14] MEDS ORDERED: MAG HYDROX/AL HYDROX/SIMETH SUSP 30 ML UDCUP PO PRN (03:15)
[2018-08-14] MEDS ORDERED: NORMAL SALINE 1000 ML 1,000 ML IV PRN (03:15)
[2018-08-14] MEDS ORDERED: PROMETHAZINE HCL 25 MG TABLET PO PRN (03:15)
[2018-08-14] MEDS ORDERED: VANCOMYCIN HCL 0 MG in DEXTROSE 5%-WATER 250 ML IV NR (03:30)
[2018-08-14] MEDS ORDERED: PIPERACILLIN/TAZOBACTAM 3.375 GM VIAL IV PRN (04:03)
--- NOTE | 2018-08-14 04:43 | PDOC H&P ---
History of Present Illness Admission Date/PCP: 08/14/18 02:11 None Patient complains of: Generalized weakness History of Present Illness: OLIVE BRADEN is a 73 year old female with medical history remarkable for hypertension, COPD not on home oxygen, patient comes complaining of generalized weakness. Patient has been in our facility twice on October 05 and October 06 complaining of profuse diarrhea, nausea, vomiting, generalized weakness,at that time the patient has been sent home with medications but since then she has not been feeling back to her baseline. Diarrhea has resolved but he still complains of worsening cough with clear sputum, wheezing on and off and unfortunately the patient is a smoker of 1 pack/day. Also feels dizzy and weak. Complains that every time she coughs she has neck pain and headaches. Patient tells me that yesterday night she passed out and lay on the floor all night she was able to external by herself with no evident trauma and was laying on her bed since then until about 4 PM and her [id number] found her a little bit of, very weak, apparently she has not changed her clothes for the last 2 or 3 days, ill looking and brought her to the ED. Patient just moved from [place] on July 02. Patient was laying on the bed all day he took her medications at 4 PM. Sent in the emergency department and initially consistent with severe sepsis, her pulse was 109, respiratory 23, temperature 103 rectal. She had also abnormal laboratories with increased white blood cells 19.9 and lactate 4. Her chest x-ray and urinalysis were negative for acute infection. 2 L of IV fluids started along with broad spectrum antibiotics. At some point her blood pressure decreased severely to the systolic in the 60s, central line was placed and is started on Levophed. CT chest abdomen and pelvis was done and was remarkable only for nodules in the subcarinal region. Past Medical History Cardiac Medical History: Reports: Hyperlipidema, Hypertension Pulmonary Medical History: Reports: Chronic Obstructive Pulmonary Disease (COPD) EENT Medical History: Reports: Other - Benign thyroid nodules Renal/ Medical History: Reports: Other - Recurrent UTI with a sling in place GI Medical History: Reports: Gastroesophageal Reflux Disease Musculoskeltal Medical History: Reports: Arthritis Psychiatric Medical History: Reports: Depression, General Anxiety Disorder Past Surgical History Past Surgical History: Reports: Section, Hysterectomy, Orthopedic Surgery - Bilateral shoulder replacement, Other - Bladder sling Social History Information Source: Patient Lives with: Family Smoking Status: Current Every Day Smoker - 1 pack/day Frequency of Alcohol Use: None Hx Recreational Drug Use: No Hx Prescription Drug Abuse: No Past Social History Note: Lives alone and usually is very independent with her ADLs Family History Family History: Brother at 58 years old with myocardial infarction, father with history of rheumatoid arthritis, mother of old age. Parental Family History Reviewed: Yes - As above Children Family History Reviewed: NA Sibling(s) Family History Reviewed.: NA Medication/Allergy Home Medications: Oxycodone HCl/Acetaminophen [Percocet 5-325 mg Tablet] 1 - 2 tab PO Q4H PRN #15 tablet 12/24/17 Acetaminophen with Codeine [Tylenol #3 Tablet] 1 each PO Q4HP PRN #20 tablet 07/14 Fluconazole [Diflucan] 150 mg PO ONCE PRN #1 tablet 08/06/18 Hyoscyamine Sulfate [Levsin 0.125 Tablet] 0.25 mg PO Q4 PRN #30 tablet 08/06/18 Nitrofurantoin Macrocrystal [Macrodantin] 100 mg PO BID #20 capsule 08/06/18 Ondansetron [Zofran Odt 4 mg Tablet] 1 - 2 tab PO Q4H PRN #15 tab.rapdis Prednisone 10 mg PO ASDIR 6 Days #1 tab.ds.pk 08/06/18 Allergies/Adverse Reactions: Iodinated Contrast- Oral and IV Dye Allergy (Severe, Verified 08/14/18 04:31) Swelling of Throat Penicillins Allergy (Verified 08/14/18 04:32) Generalized rash Sulfa (Sulfonamide Antibiotics) Allergy (Verified 08/13/18 18:01) Review of Systems Review of Systems: As outlined in the HPI, others negative Physical Exam Vital Signs: Temp Pulse Resp BP Pulse Ox 99.2 F 109 H 27 H 113/64 92 08/14/18 03:36 08/13/18 17:45 08/14/18 03:36 08/14/18 03:36 08/14/18 03:36 Intake & Output 08/12/18 08/13/18 08/14/18 06:59 06:59 06:59 Weight 85.2 kg Additional comments: General appearance: Well-developed, he is, alert and cooperative, and appears to be ill. Head: Normocephalic Eyes: PEERL, EOMI, vision is grossly intact. Ears: External auditory canal and tympanic membranes clear, hearing grossly intact. Nose: No nasal discharge. Throat: Oral cavity and pharynx very dry. No inflammation, swelling, exudate or lesions. Neck: Neck supple, nontender without lymphadenopathy, masses or thyromegaly. Cardiac: Normal S1 and S2. No S3, S4 or murmurs. Rhythm is regular and mildly tachycardic. There is no peripheral edema, cyanosis or pallor. Extremities are warm and well perfused. Capillary refill is less than 2 seconds. No carotid bruits. Lungs: Clear to auscultation and percussion without rales, rhonchi, wheezing or diminished breath sounds. Not using accessory muscles. Abdomen: Positive bowel sounds. Soft. Nondistended, nontender. No guarding or rebound. No masses. No hepatosplenomegaly Extremities: No significant deformity or joint abnormality. No edema. Peripheral pulses intact. No varicosities. Neurological: Cranial nerves II through XII grossly intact. Strength and sensation symmetric and intact throughout. Reflexes 2+ throughout. Skin: Skin pale, normal texture and turgor with no lesions or eruptions, warm and dry. Psychiatric: The mental examination revealed the patient was oriented to person , place, and time. The patient was able to demonstrate good judgment on recent , without hallucinations, abnormal affect or abnormal behaviors. Results Laboratory Results: 08/13/18 08/13/18 08/13/18 18:43 18:43 18:43 WBC 19.5 H RBC 5.88 H Hgb 15.8 H Hct 48.1 H MCV 82 MCH 26.9 L MCHC 32.8 RDW 14.2 H Plt Count 267 Seg Neutrophils % 85.7 H Lymphocytes % 6.0 L Monocytes % 5.7 Eosinophils % 2.3 Basophils % 0.3 Absolute Neutrophils 16.7 H Absolute Lymphocytes 1.2 Absolute Monocytes 1.1 Absolute Eosinophils 0.4 Absolute Basophils 0.1 Sodium 138.8 Potassium 4.5 Chloride 96 L Carbon Dioxide 28 Anion Gap 15 BUN 32 H Creatinine 1.41 H Est GFR ( Amer) 44 L Est GFR (Non-Af Amer) 37 L Glucose 113 H Lactic Acid Calcium 8.9 Total Bilirubin 0.8 Direct Bilirubin 0.4 AST 42 H ALT 55 H Alkaline Phosphatase 82 Creatine Kinase 22 L Troponin I < 0.012 Total Protein 7.6 Albumin 4.1 Urine Color Urine Appearance Urine pH Ur Specific [place] Urine Protein Urine Glucose (UA) Urine Ketones Urine Blood Urine Nitrite Urine Bilirubin Urine Urobilinogen Ur Leukocyte Esterase Urine WBC (Auto) Urine RBC (Auto) U Hyaline Cast (Auto) Urine Bacteria (Auto) Squamous Epi Cells Auto Urine Mucus (Auto) Urine Yeast (Budding) Urine Ascorbic Acid 08/13/18 08/13/18 18:43 21:25 WBC RBC Hgb Hct MCV MCH MCHC RDW Plt Count Seg Neutrophils % Lymphocytes % Monocytes % Eosinophils % Basophils % Absolute Neutrophils Absolute Lymphocytes Absolute Monocytes Absolute Eosinophils Absolute Basophils Sodium Potassium Chloride Carbon Dioxide Anion Gap BUN Creatinine Est GFR ( Amer) Est GFR (Non-Af Amer) Glucose Lactic Acid 4.0 H Calcium Total Bilirubin Direct Bilirubin AST ALT Alkaline Phosphatase Creatine Kinase Troponin I Total Protein Albumin Urine Color DARK YELLOW Urine Appearance CLOUDY Urine pH 5.0 Ur Specific [place] 1.013 Urine Protein 30 H Urine Glucose (UA) NEGATIVE Urine Ketones NEGATIVE Urine Blood NEGATIVE Urine Nitrite NEGATIVE Urine Bilirubin NEGATIVE Urine Urobilinogen NEGATIVE Ur Leukocyte Esterase NEGATIVE Urine WBC (Auto) 4 Urine RBC (Auto) 6 U Hyaline Cast (Auto) 6 Urine Bacteria (Auto) TRACE Squamous Epi Cells Auto <1 Urine Mucus (Auto) RARE Urine Yeast (Budding) PRESENT Urine Ascorbic Acid NEGATIVE EKG Comments: Sinus tachycardia with a rate of 103, no ST elevations, ST depressions or T wave inversions. QTc 471 Impressions: Abdomen/Pelvis CT 08/13/18 23:25 IMPRESSION: Nonspecific nonenlarged as well as mildly enlarged lymph nodes of the mediastinum, as above. Consider short-term follow-up to ensure stability and/or resolution. Fatty infiltrative change to the liver. Sigmoid diverticulosis. No CT evidence for diverticulitis TECHNICAL DOCUMENTATION: Quality ID # 436: Final reports with documentation of one or more dose reduction techniques (e.g., Automated exposure control, adjustment of the mA and/or kV according to patient size, use of iterative reconstruction technique) 2010 [employer]- All Rights Reserved Chest CT 08/13/18 23:26 IMPRESSION: Nonspecific nonenlarged as well as mildly enlarged lymph nodes of the mediastinum, as above. Consider short-term follow-up to ensure stability and/or resolution. Fatty infiltrative change to the liver. Sigmoid diverticulosis. No CT evidence for diverticulitis TECHNICAL DOCUMENTATION: Quality ID # [id number]: Final reports with documentation of one or more dose reduction techniques (e.g., Automated exposure control, adjustment of the mA and/or kV according to patient size, use of iterative reconstruction technique) 2010 [employer]- All Rights Reserved Chest X-Ray 08/14/18 00:00 IMPRESSION: Tip of the central line in the cavoatrial junction. No pneumothorax 2010 [employer]- All Rights Reserved Assessment & Plan - Diagnosis (1) Shock Is this a current diagnosis for this admission?: Yes Plan: Patient comes with tachycardia, tachypnea, fever, found with leukocytosis with white blood cells 19.5, acute renal failure, unfortunately there is not source of infection but he suspected. This is most likely septic shock rather than hypovolemic shock. Patient has been a started on empiric antibiotics with IV Zosyn and IV vancomycin. Please follow blood cultures and urine cultures. Patient has been complaining of some neck pain and headaches with cough but at the physical it does not impress me as meningitis. Patient has received 2 L of IV fluids, will continue with fluids, continue with levophed. Lactic acid initially 4 but now has come down to 1.2. CT chest abdomen pelvis unremarkable for nodules in the subcarinal region the probably needs to be workup as an outpatient. C. difficile sent on 08/06-, influenza a and B rapid test negative in the ED. The only noticeableworsening symptoms well has been her worsening cough with clear sputum and wheezing on and off in the setting of an active smoker patient. Bronchitis? (2) Acute renal failure Qualifiers: Acute renal failure type: unspecified Qualified Code(s): N17.9 - Acute kidney failure, unspecified Is this a current diagnosis for this admission?: Yes Plan: BUN 32 and creatinine 1.41 from prior BUN 13 creatinine 0.85, probably ATN secondary to hypotension, patient is receiving aggressive IV fluids hydration and will reassess the renal panel in the morning. (3) Hypertension Qualifiers: Hypertension type: essential hypertension Qualified Code(s): I10 - Essential (primary) hypertension Is this a current diagnosis for this admission?: Yes Plan: Patient has become severely hypotensive to the point that she is on levo fed, all her hypertensive medications will be held. (4) DVT prophylaxis Is this a current diagnosis for this admission?: Yes Plan: Heparin - Time Time Spent: 50 to 70 Minutes Anticipated discharge: Home - Inpatient Certification Based on my medical assessment, after consideration of the patient's comorbidities, presenting symptoms, or acuity I expect that the services needed warrant INPATIENT care.: Yes I certify that my determination is in accordance with my understanding of Medicare's requirements for reasonable and necessary INPATIENT services [42 CFR 412.3e].: Yes Medical Necessity: Risk of Diagnosis Which Will Require Inpatient Eval/Care/ Monitoring - Worsening shock with needs of multiple pressors and cardiac arrest.
[2018-08-14 04:53] LABS: MEAN CORPUSCULAR HEMOGLOBIN 26.9 pg (27.0-33.4); MEAN CORPUSCULAR HGB CONC 33.3 g/dL (32.0-36.0); MEAN CORPUSCULAR VOLUME 81 fl (80-97); PLATELET COUNT 185 10^3/uL (150-450); RED CELL DISTRIBUTION WIDTH 13.9 % (11.5-14.0); WHITE BLOOD COUNT 17.4 10^3/uL (4.0-10.5)
[2018-08-14 05:03] LABS: ALANINE AMINOTRANSFERASE 52 U/L (9-52); ALBUMIN 2.7 g/dL (3.5-5.0); ALKALINE PHOSPHATASE 59 U/L (38-126); ANION GAP 11 (5-19); ASPARTATE AMINO TRANSFERASE 22 U/L (14-36); BILIRUBIN,DIRECT 0.3 mg/dL (0.0-0.4); BILIRUBIN,TOTAL 0.8 mg/dL (0.2-1.3); BLOOD UREA NITROGEN 27 mg/dL (7-20); CALCIUM 7.7 mg/dL (8.4-10.2); CARBON DIOXIDE 27 mmol/L (22-30); CHLORIDE 100 mmol/L (98-107); GLUCOSE 160 mg/dL (75-110); PHOSPHORUS 4.4 mg/dL (2.5-4.5); POTASSIUM 4.2 mmol/L (3.6-5.0); SODIUM 137.8 mmol/L (137-145); TOTAL PROTEIN 5.3 g/dL (6.3-8.2)
[2018-08-14 05:07] LABS: HEMOGLOBIN 12.7 g/dL (12.0-15.5)
[2018-08-14 05:12] LABS: ABSOLUTE LYMPHOCYTES# (MANUAL) 1.4 10^3/uL (0.5-4.7); ABSOLUTE MONOCYTES # (MANUAL) 1.2 10^3/uL (0.1-1.4); ABSOLUTE NEUTROPHILS# (MANUAL) 14.3 10^3/uL (1.7-8.2); BASOPHILS % (MANUAL) 0 % (0-2); EOSINOPHILS % (MANUAL) 3 % (0-6); LYMPHOCYTES % (MANUAL) 8 % (13-45); MONOCYTES % (MANUAL) 7 % (3-13); SEGMENTED NEUTROPHILS % (MAN) 82 % (42-78); TOTAL CELLS COUNTED 100
[2018-08-14 05:15] LABS: POIKILOCYTOSIS 2+; TOXIC GRANULATION 1+; TOXIC VACUOLATION PRESENT
[2018-08-14 05:16] LABS: HELMET CELLS 1+; OVALOCYTES 2+; PLATELET COMMENT ADEQUATE; TEAR DROP CELLS SLIGHT
[2018-08-14 05:44] LABS: URINE AMPHETAMINES SCREEN NEGATIVE; URINE BARBITURATES SCREEN NEGATIVE; URINE BENZODIAZEPINES SCREEN NEGATIVE; URINE COCAINE SCREEN NEGATIVE; URINE MARIJUANA (THC) SCREEN NEGATIVE; URINE METHADONE SCREEN NEGATIVE; URINE PHENCYCLIDINE SCREEN NEGATIVE
[2018-08-14] MEDS: HEPARIN SOD (PORCINE) 5,000 UNIT/ML 1 ML SYRINGE SUBCUT SCH ×3 (05:58→21:24)
[2018-08-14] MEDS ORDERED: PIPERACILLIN SODIUM/TAZOBACTAM 3.375 GM in NORMAL SALINE 100 ML IV SCH ×4 (06:00)
[2018-08-14] MEDS: ACETAMINOPHEN 325 MG TABLET PO PRN (08:27)
[2018-08-14 09:13] LABS: ARTERIAL BLOOD BASE EXCESS 1.3 mmol/L; ARTERIAL BLOOD H2CO3 1.09 mmol/L (1.05-1.35); ARTERIAL BLOOD HCO3 24.9 mmol/L (20-24); ARTERIAL BLOOD O2 SATURATION 93.7 % (94-98); ARTERIAL BLOOD PCO2 36.3 mmHg (35-45); ARTERIAL BLOOD PH 7.46 (7.35-7.45); ARTERIAL BLOOD PO2 64.6 mmHg (80-100); ARTERIAL BLOOD TOTAL CO2 26.1 mmol/L (21-25)
[2018-08-14 09:15] LABS: ARTERIAL BLOOD FIO2 2L
[2018-08-14] MEDS ORDERED: METHYLPREDNISOLONE INJ 125 MG/2 ML SDV IV ONE (10:30)
--- NOTE | 2018-08-14 10:51 | EKG REPORT ---
SEVERITY:- ABNORMAL ECG - SINUS TACHYCARDIA NONSPECIFIC INTRAVENTRICULAR CONDUCTION DELAY INFERIOR INFARCT, AGE INDETERMINATE ST DEPRESSION, CONSIDER ISCHEMIA, ANT-LAT LDS : Confirmed by: Carmela Marion 14-Aug-2018 10:49:13
[2018-08-14] MEDS: BUDESONIDE NEB 0.5 MG/2 ML AMPUL NEB SCH ×2 (11:14→20:28)
[2018-08-14] MEDS: ACETYLCYSTEINE 20% SOLN 800 MG/4 ML VIAL.NEB NEB SCH ×2 (11:14→20:30)
[2018-08-14] MEDS: LEVALBUTEROL HCL NEB 1.25 MG/3 ML AMPUL NEB SCH ×2 (11:14→16:08)
[2018-08-14] MEDS: PANTOPRAZOLE SODIUM 40 MG VIAL IV SCH ×2 (12:16→21:15)
[2018-08-14] MEDS: CEFEPIME 2 GM/D5W RTU 2 GM/50 ML RTUPB IV SCH ×2 (12:17→21:15)
[2018-08-14] MEDS: METHYLPREDNISOLONE INJ 40 MG/1 ML SDV IV SCH ×2 (15:25→21:14)
[2018-08-14] MEDS: IPRATROPIUM BROMIDE 0.02% NEB 0.5 MG/2.5 ML AMPUL NEB SCH (16:08)
[2018-08-14] MEDS: DOCUSATE SODIUM 100 MG CAPSULE PO SCH (19:28)
--- NOTE | 2018-08-14 19:38 | PDOC PROGRESS REPORT ---
Subjective Progress Note for:: 08/14/18 Subjective:: OLIVE BRADEN is a 73 year old female who presented to the emergency room with a week long history of progressively worsening generalized weakness. She had visited the emergency room on 2 separate occasions 6 and 7 days prior to her admission and was found to have profuse diarrhea with nausea as well as vomiting and generalized weakness on those visits. Her weakness persisted despite the gradual improvement in the other symptoms to the point where it culminated over 24 hours prior to her admission where she went to bed in her home and was unable to get up and had to wait for someone to come to her home and find her to take her to the emergency room. She does admit to associated symptoms of a gradually worsening cough productive of clear to yellowish sputum in the setting of a 1 pack a day smoking history. In the emergency room she was found to have a heart rate of 109 and a respiratory rate of 23 and temperature of 103 F rectally. A CBC showed a white count of 19,900 and serum lactate was 4.0. Her chest x-ray showed no acute cardiopulmonary changes and her urinalysis was negative. Patient was given 2 L of IV fluid and a biotics were started. Her blood pressure was decreased on one reading and preparations were made to start pressor support however prior to starting the pressors her blood pressure returned to normal and no venous vasopressors were administered. Patient was placed in the ICU for further evaluation and treatment. Reason For Visit: SHOCK Physical Exam Vital Signs: Temp Pulse Resp BP Pulse Ox 100.2 F 84 22 H 110/60 95 08/14/18 07:44 08/14/18 08:32 08/14/18 08:32 08/14/18 07:44 08/14/18 08:32 Intake & Output 08/12/18 08/13/18 08/14/18 23:59 23:59 23:59 Intake Total 28 Output Total 850 Balance -822 Weight 85.2 kg General appearance: PRESENT: cooperative, disheveled, mild distress - Secondary to cough, obese Head exam: PRESENT: atraumatic, normocephalic Eye exam: PRESENT: conjunctiva pink, EOMI Ear exam: PRESENT: normal external ear exam. ABSENT: drainage Mouth exam: PRESENT: neck supple, tongue midline Neck exam: PRESENT: other - right IJ line in good position. ABSENT: JVD, thyromegaly, tracheal deviation Respiratory exam: PRESENT: accessory muscle use - increased work of breathing, decreased breath sounds - poor to fair air movement in all johnson, prolonged expiratory phas, symmetrical, tachypnea, wheezes - expiratory. ABSENT: rales, retraction, rhonchi, stridor Cardiovascular exam: PRESENT: RRR, tachycardia. ABSENT: clicks, gallop, rubs Pulses: PRESENT: normal radial pulses, normal dorsalis pedis pul Vascular exam: PRESENT: normal capillary refill. ABSENT: pallor GI/Abdominal exam: PRESENT: normal bowel sounds, soft Rectal exam: PRESENT: deferred Extremities exam: ABSENT: joint swelling, pedal edema Musculoskeletal exam: ABSENT: deformity, dislocation Neurological exam: PRESENT: alert, oriented to person, oriented to place, oriented to time, oriented to situation, CN II-XII grossly intact. ABSENT: motor sensory deficit Psychiatric exam: PRESENT: appropriate affect, normal mood Skin exam: PRESENT: dry, intact, warm Results Laboratory Results: 08/14/18 04:37 08/14/18 04:37 08/14/18 08/14/18 08/14/18 04:37 04:37 04:37 WBC 17.4 H RBC 4.70 Hgb 12.7 D Hct 38.0 MCV 81 MCH 26.9 L MCHC 33.3 RDW 13.9 Plt Count 185 Seg Neutrophils % Not Reportable Lymphocytes % Not Reportable Monocytes % Not Reportable Eosinophils % Not Reportable Basophils % Not Reportable Absolute Neutrophils Not Reportable Absolute Lymphocytes Not Reportable Absolute Monocytes Not Reportable Absolute Eosinophils Not Reportable Absolute Basophils Not Reportable Carbonic Acid HCO3/H2CO3 Ratio ABG pH ABG pCO2 ABG pO2 ABG HCO3 ABG O2 Saturation ABG Base Excess FiO2 Sodium 137.8 Potassium 4.2 Chloride 100 Carbon Dioxide 27 Anion Gap 11 BUN 27 H Creatinine 1.11 Est GFR ( Amer) 59 L Est GFR (Non-Af Amer) 48 L Glucose 160 H Lactic Acid Calcium 7.7 L Phosphorus 4.4 Magnesium 1.6 Total Bilirubin 0.8 AST 22 ALT 52 Alkaline Phosphatase 59 Total Protein 5.3 L Albumin 2.7 L TSH 0.48 08/14/18 08/14/18 04:37 08:50 WBC RBC Hgb Hct MCV MCH MCHC RDW Plt Count Seg Neutrophils % Lymphocytes % Monocytes % Eosinophils % Basophils % Absolute Neutrophils Absolute Lymphocytes Absolute Monocytes Absolute Eosinophils Absolute Basophils Carbonic Acid 1.09 HCO3/H2CO3 Ratio 22:1 ABG pH 7.46 H ABG pCO2 36.3 ABG pO2 64.6 L ABG HCO3 24.9 H ABG O2 Saturation 93.7 L ABG Base Excess 1.3 FiO2 2L Sodium Potassium Chloride Carbon Dioxide Anion Gap BUN Creatinine Est GFR ( Amer) Est GFR (Non-Af Amer) Glucose Lactic Acid 0.9 Calcium Phosphorus Magnesium Total Bilirubin AST ALT Alkaline Phosphatase Total Protein Albumin TSH Impressions: Abdomen/Pelvis CT 08/13/18 23:25 IMPRESSION: Nonspecific nonenlarged as well as mildly enlarged lymph nodes of the mediastinum, as above. Consider short-term follow-up to ensure stability and/or resolution. Fatty infiltrative change to the liver. Sigmoid diverticulosis. No CT evidence for diverticulitis TECHNICAL DOCUMENTATION: Quality ID # 436: Final reports with documentation of one or more dose reduction techniques (e.g., Automated exposure control, adjustment of the mA and/or kV according to patient size, use of iterative reconstruction technique) 2010 [employer]- All Rights Reserved Chest CT 08/13/18 23:26 IMPRESSION: Nonspecific nonenlarged as well as mildly enlarged lymph nodes of the mediastinum, as above. Consider short-term follow-up to ensure stability and/or resolution. Fatty infiltrative change to the liver. Sigmoid diverticulosis. No CT evidence for diverticulitis TECHNICAL DOCUMENTATION: Quality ID # [id number]: Final reports with documentation of one or more dose reduction techniques (e.g., Automated exposure control, adjustment of the mA and/or kV according to patient size, use of iterative reconstruction technique) 2010 [employer]- All Rights Reserved Chest X-Ray 08/14/18 00:00 IMPRESSION: Tip of the central line in the cavoatrial junction. No pneumothorax 2010 [employer]- All Rights Reserved Assessment & Plan - Diagnosis (1) SIRS (systemic inflammatory response syndrome) Is this a current diagnosis for this admission?: Yes Plan: Patient has received IV fluids and IV antibiotics on empiric basis. Her hypotension resolved before it could be treated other than with IV fluid. Her heart rate and tachypnea resolved with a brief period of observation and received of IV fluids and her serum lactate returned to normal within a few hours of receiving IV fluid. The patient initially met SIRS criteria she obviously does not meet sepsis criteria at this point. She will be continued on IV antibiotics and further investigation possible infectious etiology will be undertaken. (2) Hypotension Is this a current diagnosis for this admission?: Yes Plan: The patient was noted to have one blood pressure reading that was low in the emergency room and plans to start IV vasopressors were made. The patient had her blood pressure rechecked and it was back to normal prior to starting the IV vasopressors therefore she did not receive any blood pressure support other than plain IV fluids. Patient's hypertension is probably better recognized as a spurious vital signs reading then as an actual physiologic defect/process. (3) Hypovolemia Is this a current diagnosis for this admission?: Yes Plan: Patient appeared to have hypovolemia due to her tachycardia on admission. This resolved very quickly after initiating IV fluids and thus proved the high likelihood of tachycardia being due to hypovolemia. Patient's volume will be replaced with IV fluids as needed. (4) Leukocytosis Qualifiers: Leukocytosis type: unspecified Qualified Code(s): D72.829 - Elevated white blood cell count, unspecified Is this a current diagnosis for this admission?: Yes Plan: Patient was noted to have a significant leukocytosis of 19,900 on admission this will be followed on a regular basis with serial CBCs during her hospital course. Other potential causes of fever and leukocytosis such as bronchitis or other respiratory infections that would not show up on her chest x-ray will be considered. - Time Time Spent with patient: 15-24 minutes Medications reviewed and adjusted accordingly: Yes
[2018-08-14] MEDS: ALBUTEROL SULFATE 0.083% NEB 2.5 MG/3 ML AMPUL NEB PRN (20:28)
[2018-08-14] MEDS: NICOTINE 21 MG/24 HR PATCH.TD24 TD PRN (21:23)
[2018-08-15] MEDS: LEVALBUTEROL HCL NEB 1.25 MG/3 ML AMPUL NEB SCH ×3 (00:14→16:32)
[2018-08-15] MEDS: IPRATROPIUM BROMIDE 0.02% NEB 0.5 MG/2.5 ML AMPUL NEB SCH ×3 (00:14→16:32)
[2018-08-15] MEDS: METHYLPREDNISOLONE INJ 40 MG/1 ML SDV IV SCH ×4 (03:16→21:12)
[2018-08-15 05:44] LABS: ABSOLUTE BASOPHILS # (AUTO) 0.1 10^3/uL (0.0-0.2); ABSOLUTE LYMPHOCYTES (AUTO) 1.3 10^3/uL (0.5-4.7); ABSOLUTE MONOCYTES (AUTO) 0.5 10^3/uL (0.1-1.4); ABSOLUTE NEUT (AUTO) 12.3 10^3/uL (1.7-8.2); BASOPHILS % (AUTO) 0.5 % (0-2); EOSINOPHILS % (AUTO) 0.1 % (0-6); HEMATOCRIT 36.4 % (36.0-47.0); HEMOGLOBIN 12.1 g/dL (12.0-15.5); LYMPHOCYTES % (AUTO) 9.3 % (13-45); MEAN CORPUSCULAR HEMOGLOBIN 27.1 pg (27.0-33.4); MEAN CORPUSCULAR HGB CONC 33.2 g/dL (32.0-36.0); MEAN CORPUSCULAR VOLUME 82 fl (80-97); MONOCYTES % (AUTO) 3.8 % (3-13); PLATELET COUNT 165 10^3/uL (150-450); RED BLOOD COUNT 4.47 10^6/uL (3.72-5.28); RED CELL DISTRIBUTION WIDTH 14.2 % (11.5-14.0); SEGMENTED NEUTROPHILS % (AUTO) 86.3 % (42-78); TOTAL CELLS COUNTED % (AUTO) 100 %; WHITE BLOOD COUNT 14.3 10^3/uL (4.0-10.5)
[2018-08-15 05:51] LABS: INTERNATIONAL RATION (INR) 1.21; PROTHROMBIN TIME 15.9 SEC (11.4-15.4)
[2018-08-15 05:52] LABS: PARTIAL THROMBOPLASTIN TIME 79.5 SEC (23.5-35.8)
[2018-08-15 06:03] LABS: ALANINE AMINOTRANSFERASE 46 U/L (9-52); ALBUMIN 2.9 g/dL (3.5-5.0); ALKALINE PHOSPHATASE 73 U/L (38-126); ANION GAP 11 (5-19); ASPARTATE AMINO TRANSFERASE 17 U/L (14-36); BILIRUBIN,DIRECT 0.4 mg/dL (0.0-0.4); BILIRUBIN,TOTAL 0.5 mg/dL (0.2-1.3); BLOOD UREA NITROGEN 26 mg/dL (7-20); CALCIUM 7.9 mg/dL (8.4-10.2); CARBON DIOXIDE 24 mmol/L (22-30); CHLORIDE 108 mmol/L (98-107); CREATINE KINASE < 20 U/L (30-135); GLUCOSE 189 mg/dL (75-110); PHOSPHORUS 2.9 mg/dL (2.5-4.5); POTASSIUM 3.8 mmol/L (3.6-5.0); SODIUM 142.8 mmol/L (137-145); TOTAL PROTEIN 5.6 g/dL (6.3-8.2)
[2018-08-15] MEDS: HEPARIN SOD (PORCINE) 5,000 UNIT/ML 1 ML SYRINGE SUBCUT SCH ×3 (06:03→21:13)
[2018-08-15 06:16] LABS: ARTERIAL BLOOD H2CO3 1.08 mmol/L (1.05-1.35); ARTERIAL BLOOD HCO3 22.2 mmol/L (20-24); ARTERIAL BLOOD PH 7.41 (7.35-7.45); ARTERIAL BLOOD PO2 57.5 mmHg (80-100); ARTERIAL BLOOD TOTAL CO2 23.3 mmol/L (21-25)
[2018-08-15 06:17] LABS: ARTERIAL BLOOD BASE EXCESS -1.9 mmol/L; ARTERIAL BLOOD FIO2 2L; ARTERIAL BLOOD O2 SATURATION 90.3 % (94-98)
[2018-08-15] MEDS: ACETYLCYSTEINE 20% SOLN 800 MG/4 ML VIAL.NEB NEB SCH ×2 (08:17→20:02)
[2018-08-15] MEDS: BUDESONIDE NEB 0.5 MG/2 ML AMPUL NEB SCH ×2 (08:17→20:01)
[2018-08-15] MEDS: CEFEPIME 2 GM/D5W RTU 2 GM/50 ML RTUPB IV SCH ×2 (09:14→21:12)
[2018-08-15] MEDS: DOCUSATE SODIUM 100 MG CAPSULE PO SCH ×2 (09:29→17:13)
[2018-08-15] MEDS: PANTOPRAZOLE SODIUM 40 MG VIAL IV SCH (09:30)
[2018-08-15] MEDS ORDERED: CHOLECALCIFEROL (D3) 1,000 UNIT TABLET PO SCH (10:00)
--- NOTE | 2018-08-15 11:00 | PDOC PROGRESS REPORT ---
Subjective Progress Note for:: 08/15/18 Subjective:: OLIVE BRADEN is a 73 year old female who presented to the emergency room with a week long history of progressively worsening generalized weakness. She had visited the emergency room on 2 separate occasions 6 and 7 days prior to her admission and was found to have profuse diarrhea with nausea as well as vomiting and generalized weakness on those visits. Her weakness persisted despite the gradual improvement in the other symptoms to the point where it culminated over 24 hours prior to her admission where she went to bed in her home and was unable to get up and had to wait for someone to come to her home and find her to take her to the emergency room. She does admit to associated symptoms of a gradually worsening cough productive of clear to yellowish sputum in the setting of a 1 pack a day smoking history. In the emergency room she was found to have a heart rate of 109 and a respiratory rate of 23 and temperature of 103 F rectally. A CBC showed a white count of 19,900 and serum lactate was 4.0. Her chest x-ray showed no acute cardiopulmonary changes and her urinalysis was negative. Patient was given 2 L of IV fluid and a biotics were started. Her blood pressure was decreased on one reading and preparations were made to start pressor support however prior to starting the pressors her blood pressure returned to normal and no venous vasopressors were administered. Patient was placed in the ICU for further evaluation and treatment. 08/15/2018: Olive states that she feels a little better but she is not well yet. She has been up in the room to the bedside commode and has been walking in the kwan with the assistance of the nurse. She is in agreement that she would like to have physical therapy see her and initiate treatment to strengthen her and get her back to her normal levels of activity. Additionally she is asked about chest physiotherapy and indicated she would like to have that if possible. I have informed her of the chest physiotherapy is available and we will started twice a day with RT performing the therapy. She has been eating well and denies nausea or vomiting. She is been able to eliminate well and feels considerably less dyspneic although she does get short of breath with activity. She was noted to have a PO2 of approximately 60 on O2 at 2 L/min per nasal cannula and this was subsequently increased to 3 L/min. Dr. Rios will be seeing her today for consultation and we will certainly be happy to have him participate in the management of the patient and we will defer to all of his suggestions. Reason For Visit: SHOCK Physical Exam Vital Signs: Temp Pulse Resp BP Pulse Ox 98.4 F 106 H 22 H 143/69 H 93 08/15/18 08:00 08/15/18 08:00 08/15/18 08:00 08/15/18 08:00 08/15/18 00:15 Intake & Output 08/13/18 08/14/18 08/15/18 23:59 23:59 23:59 Intake Total 483 Output Total 1690 375 Balance -1207 -375 Weight 85.2 kg 89.4 kg General appearance: PRESENT: no acute distress, cooperative, obese Head exam: PRESENT: atraumatic, normocephalic Eye exam: PRESENT: conjunctiva pink, EOMI Ear exam: PRESENT: normal external ear exam. ABSENT: drainage Mouth exam: PRESENT: neck supple, other - Oral labia are full, moist and grossly free of lesions. Neck exam: ABSENT: thyromegaly, tracheal deviation Respiratory exam: PRESENT: decreased breath sounds - Mildly decreased breath sounds throughout all johnson, prolonged expiratory phas - Minimally prolonged expiratory phase in all johnson, rhonchi - Scattered coarse rhonchi primarily in central lung johnson, symmetrical, unlabored. ABSENT: rales Cardiovascular exam: PRESENT: RRR, tachycardia, other - No murmurs clicks gallops or rubs Vascular exam: PRESENT: normal capillary refill. ABSENT: pallor - [id number] GI/Abdominal exam: PRESENT: normal bowel sounds, soft Rectal exam: PRESENT: deferred Extremities exam: ABSENT: joint swelling, pedal edema Musculoskeletal exam: ABSENT: deformity, dislocation Neurological exam: PRESENT: alert, oriented to person, oriented to place, oriented to time, oriented to situation Psychiatric exam: PRESENT: appropriate affect, normal mood Skin exam: PRESENT: dry, intact, warm Results Laboratory Results: 08/15/18 05:35 08/15/18 05:35 08/15/18 08/15/18 08/15/18 05:35 05:35 05:55 WBC 14.3 H RBC 4.47 Hgb 12.1 Hct 36.4 MCV 82 MCH 27.1 MCHC 33.2 RDW 14.2 H Plt Count 165 Seg Neutrophils % 86.3 H Lymphocytes % 9.3 L Monocytes % 3.8 Eosinophils % 0.1 Basophils % 0.5 Absolute Neutrophils 12.3 H Absolute Lymphocytes 1.3 Absolute Monocytes 0.5 Absolute Eosinophils 0.0 Absolute Basophils 0.1 Carbonic Acid 1.08 HCO3/H2CO3 Ratio 20:1 ABG pH 7.41 ABG pCO2 36.0 ABG pO2 57.5 L ABG HCO3 22.2 ABG O2 Saturation 90.3 L ABG Base Excess -1.9 FiO2 2L Sodium 142.8 Potassium 3.8 Chloride 108 H Carbon Dioxide 24 Anion Gap 11 BUN 26 H Creatinine 1.02 Est GFR ( Amer) > 60 Est GFR (Non-Af Amer) 53 L Glucose 189 H Calcium 7.9 L Phosphorus 2.9 Magnesium 1.8 Total Bilirubin 0.5 AST 17 ALT 46 Alkaline Phosphatase 73 Total Protein 5.6 L Albumin 2.9 L 08/15/18 05:35 Creatine Kinase < 20 L Impressions: Abdomen/Pelvis CT 08/13/18 23:25 IMPRESSION: Nonspecific nonenlarged as well as mildly enlarged lymph nodes of the mediastinum, as above. Consider short-term follow-up to ensure stability and/or resolution. Fatty infiltrative change to the liver. Sigmoid diverticulosis. No CT evidence for diverticulitis TECHNICAL DOCUMENTATION: Quality ID # 436: Final reports with documentation of one or more dose reduction techniques (e.g., Automated exposure control, adjustment of the mA and/or kV according to patient size, use of iterative reconstruction technique) 2010 [employer]- All Rights Reserved Chest CT 08/13/18 23:26 IMPRESSION: Nonspecific nonenlarged as well as mildly enlarged lymph nodes of the mediastinum, as above. Consider short-term follow-up to ensure stability and/or resolution. Fatty infiltrative change to the liver. Sigmoid diverticulosis. No CT evidence for diverticulitis TECHNICAL DOCUMENTATION: Quality ID # 436: Final reports with documentation of one or more dose reduction techniques (e.g., Automated exposure control, adjustment of the mA and/or kV according to patient size, use of iterative reconstruction technique) 2010 [employer]- All Rights Reserved Chest X-Ray 08/14/18 00:00 IMPRESSION: Tip of the central line in the cavoatrial junction. No pneumothorax 2010 [employer] All Rights Reserved Assessment & Plan - Diagnosis (1) Acute on chronic respiratory failure with hypoxia Is this a current diagnosis for this admission?: Yes Plan: 08/15/2018: Patient has been noted to be significantly hypoxic and initially required BiPAP to support her respiratory function. Is been doing reasonably well off BiPAP though she is consistently hypoxic and remains dyspneic on exertion. Pulmonary toilet and steroid therapy have been provided as well as supplemental oxygen currently at 3 L/min. Patient will be seen by Dr. Rios in consultation for ongoing management of her respiratory failure and posthospitalization management of her chronic pulmonary illness. (2) COPD with acute exacerbation Is this a current diagnosis for this admission?: Yes Plan: Patient has COPD with an acute exacerbation and acute bronchitis. She was seen by a band edger in [place] and would feel comfortable having a band edger see her in [facility] to evaluate and treat her acute condition and follow her chronically. To this end Dr. Rios has been consulted and we will gladly except his input and all recommendations. (3) SIRS (systemic inflammatory response syndrome) Is this a current diagnosis for this admission?: Yes Plan: Patient has received IV fluids and IV antibiotics on empiric basis. Her hypotension resolved before it could be treated other than with IV fluid. Her heart rate and tachypnea resolved with a brief period of observation and received of IV fluids and her serum lactate returned to normal within a few hours of receiving IV fluid. The patient initially met SIRS criteria she obviously does not meet sepsis criteria at this point. She will be continued on IV antibiotics and further investigation of possible infectious etiology will be undertaken as appropriate. (4) Hypovolemia Is this a current diagnosis for this admission?: Yes Plan: Patient appeared to have hypovolemia due to her tachycardia on admission. This resolved very quickly after initiating IV fluids and thus proved the high likelihood of tachycardia being due to hypovolemia. Patient's volume will be replaced with IV fluids as needed. (5) Leukocytosis Qualifiers: Leukocytosis type: unspecified Qualified Code(s): D72.829 - Elevated white blood cell count, unspecified Is this a current diagnosis for this admission?: Yes Plan: Patient was noted to have a significant leukocytosis of 19,900 on admission this will be followed on a regular basis with serial CBCs during her hospital course. Other potential causes of fever and leukocytosis such as bronchitis or other respiratory infections that would not show up on her chest x-ray will be considered. 08/15/2018: Patient's white blood count continues to decline from initial levels on her current antibiotic therapy of cefepime. Her other symptoms have improved or resolved with only a mild tachycardia persisting at this time. The tachycardia may well be related to her nebulizer therapy and consideration for using a low- dose of Toprol-XL, when her antihypertensive therapy is reinstituted, instead of her prior amlodipine 5 mg daily, will be given. (6) Hypotension Is this a current diagnosis for this admission?: Yes Plan: The patient was noted to have one blood pressure reading that was low in the emergency room and plans to start IV vasopressors were made. The patient had her blood pressure rechecked and it was back to normal prior to starting the IV vasopressors therefore she did not receive any blood pressure support other than plain IV fluids. Patient's hypotension is probably better recognized as a spurious vital signs reading then as an actual physiologic defect/process. - Time Time Spent with patient: 15-24 minutes
--- NOTE | 2018-08-15 14:27 | PDOC CONSULTATION ---
Consultation Consult Date: 08/15/18 Attending physician:: RAVI GUTIERREZ Consult reason:: Dyspnea/sepsis History of Present Illness Admission Date/PCP: 08/14/18 02:11 History of Present Illness: OLIVE BRADEN is a 73 year old female, presented to the emergency room with some slight change in mental status at workup she was found to have a leukocytosis compared to 103 normal urine and a normal CT scan subsequently started on antibiotics acquired of some BiPAP to maintain her her SaO2 she has a cough that is nonproductive and she denies hemoptysis her PPD was negative the dates unknown she thinks she has some asthma as a child. She admits to being exposed to large amounts of passive smoke as a child as well as an adult. She has self up to 1-1/2 packs/day for approximately 63 years and is currently down to half a pack per day he works in her life and forming tobacco. She has 2 pets dogs she denies recent travel she denies any chest pain sleeps 1-2 pillows occasional PND occasional nocturnal cough rare edema she admits to snoring restless sleep nocturia 2-3 times per night on restful sleep and excessive daytime somnolence. Past Medical History Cardiac Medical History: Reports: Hyperlipidema, Hypertension Pulmonary Medical History: Reports: Asthma, Chronic Obstructive Pulmonary Disease (COPD), Respiratory Failure EENT Medical History: Reports: Other - Benign thyroid nodules Renal/ Medical History: Reports: Other - Recurrent UTI with a sling in place GI Medical History: Reports: Gastroesophageal Reflux Disease Musculoskeltal Medical History: Reports: Arthritis Psychiatric Medical History: Reports: Depression, General Anxiety Disorder Hematology: Reports: Other - Benign thyroid nodules Infectious Medical History: Denies: HIV Past Surgical History Past Surgical History: Reports: Section, Hysterectomy, Orthopedic Surgery - Bilateral shoulder replacement, Other - Bladder sling Social History Information Source: Patient, [facility], [facility]–1983 Records Lives with: Family Smoking Status: Current Every Day Smoker - 1 pack/day Cigarettes Packs Per Day: 1 Passive smoke exposure as: Both Frequency of Alcohol Use: None Hx Recreational Drug Use: No Hx Prescription Drug Abuse: No Do you have pets?: Yes Have you had any respiratory illnesses as a child?: Yes Have you been exposed to any sick contacts recently?: Yes Have you had any recent respiratory illnesses?: No Have you travelled outside of [place] in the past 12 months?: No - 54-year-old male with severe COPD severe decrease in diffusion capacity as Family History Parental Family History Reviewed: No Children Family History Reviewed: No Sibling(s) Family History Reviewed.: No Medication/Allergy Home Medications: Acetaminophen with Codeine [Tylenol #3 Tablet] 1 each PO Q4HP PRN #20 tablet 07/14 Fluconazole [Diflucan] 150 mg PO ONCE PRN #1 tablet 08/06/18 Nitrofurantoin Macrocrystal [Macrodantin] 100 mg PO BID #20 capsule 08/06/18 Ondansetron [Zofran Odt 4 mg Tablet] 1 - 2 tab PO Q4H PRN #15 tab.rapdis Prednisone 10 mg PO ASDIR 6 Days #1 tab.ds.pk 08/06/18 Albuterol Sulfate [Ventolin Hfa 8 gm Mdi (1 Mdi/ER Disp)] 2 puff IH Q6H PRN Amlodipine Besylate [Norvasc 5 mg Tablet] 5 mg PO DAILY 08/14/18 Cholecalciferol (Vitamin D3) [Vitamin D] 50,000 unit PO Q7D 08/14/18 Fenofibrate Nanocrystallized [Tricor 48 mg Tablet] 48 mg PO DAILY 08/14/18 Gabapentin [Neurontin 100 mg Capsule] 200 mg PO TID 08/14/18 Montelukast Sodium [Singulair 10 mg Tablet] 10 mg PO DAILY 08/14/18 Omeprazole 40 mg PO DAILY 08/14/18 Rosuvastatin Calcium [Crestor 10 mg Tablet] 10 mg PO DAILY 08/14/18 Allergies/Adverse Reactions: Iodinated Contrast- Oral and IV Dye Allergy (Severe, Verified 08/14/18 04:31) Swelling of Throat Penicillins Allergy (Verified 08/14/18 04:32) Generalized rash Sulfa (Sulfonamide Antibiotics) Allergy (Verified 08/13/18 18:01) Review of Systems Constitutional: PRESENT: fatigue, weakness. ABSENT: chills, fever(s) Eyes: ABSENT: visual disturbances Ears: ABSENT: hearing changes Nose, Mouth, and Throat: ABSENT: sore throat Cardiovascular: PRESENT: dyspnea on exertion. ABSENT: palpitations Respiratory: ABSENT: hemoptysis Gastrointestinal: ABSENT: abdominal pain, coffee ground emesis, dysphagia, hematemesis, hematochezia, melena Genitourinary: ABSENT: dysuria Musculoskeletal: ABSENT: deformity, joint swelling Integumentary: ABSENT: lesions, pruritus, rash Neurological: ABSENT: abnormal gait, abnormal movements, abnormal speech, lack of coordination, memory loss, paresthesias Psychiatric: ABSENT: hallucinations, homidical ideation, suicidal ideation Endocrine: ABSENT: cold intolerance, heat intolerance, polydipsia, polyuria Hematologic/Lymphatic: ABSENT: lymphadenopathy Allergic/Immunologic: ABSENT: seasonal rhinorrhea Physical Exam Vital Signs: Temp Pulse Resp BP Pulse Ox 98.4 F 106 H 22 H 143/69 H 93 08/15/18 08:00 08/15/18 08:00 08/15/18 08:00 08/15/18 08:00 08/15/18 00:15 Intake & Output 08/14/18 08/15/18 08/16/18 06:59 06:59 06:59 Intake Total 28 455 Output Total 600 1465 Balance -572 -1010 Weight 85.2 kg 89.4 kg General appearance: PRESENT: no acute distress, cooperative, disheveled, obese Head exam: PRESENT: atraumatic, normocephalic Eye exam: PRESENT: conjunctiva pale, EOMI. ABSENT: nystagmus, periorbital swelling, scleral icterus Mouth exam: PRESENT: dry mucosa, neck supple, tongue midline Teeth exam: PRESENT: poor dentation Neck exam: ABSENT: carotid bruit, JVD, lymphadenopathy, thyromegaly, tracheal deviation, tracheostomy Respiratory exam: PRESENT: decreased breath sounds, prolonged expiratory phas, rales, rhonchi, symmetrical, unlabored, wheezes. ABSENT: retraction, stridor, tachypnea Cardiovascular exam: PRESENT: +S1, +S2, tachycardia Pulses: PRESENT: normal radial pulses GI/Abdominal exam: PRESENT: soft. ABSENT: tenderness Extremities exam: PRESENT: pedal edema. ABSENT: calf tenderness, clubbing, joint swelling Musculoskeletal exam: ABSENT: deformity, dislocation Neurological exam: PRESENT: awake Psychiatric exam: PRESENT: flat affect Skin exam: PRESENT: dry, warm Results Laboratory Results: 08/15/18 05:35 08/15/18 05:35 08/15/18 08/15/18 08/15/18 05:35 05:35 05:55 WBC 14.3 H RBC 4.47 Hgb 12.1 Hct 36.4 MCV 82 MCH 27.1 MCHC 33.2 RDW 14.2 H Plt Count 165 Seg Neutrophils % 86.3 H Lymphocytes % 9.3 L Monocytes % 3.8 Eosinophils % 0.1 Basophils % 0.5 Absolute Neutrophils 12.3 H Absolute Lymphocytes 1.3 Absolute Monocytes 0.5 Absolute Eosinophils 0.0 Absolute Basophils 0.1 Carbonic Acid 1.08 HCO3/H2CO3 Ratio 20:1 ABG pH 7.41 ABG pCO2 36.0 ABG pO2 57.5 L ABG HCO3 22.2 ABG O2 Saturation 90.3 L ABG Base Excess -1.9 FiO2 2L Sodium 142.8 Potassium 3.8 Chloride 108 H Carbon Dioxide 24 Anion Gap 11 BUN 26 H Creatinine 1.02 Est GFR ( Amer) > 60 Est GFR (Non-Af Amer) 53 L Glucose 189 H Calcium 7.9 L Phosphorus 2.9 Magnesium 1.8 Total Bilirubin 0.5 AST 17 ALT 46 Alkaline Phosphatase 73 Total Protein 5.6 L Albumin 2.9 L 08/15/18 05:35 Creatine Kinase < 20 L Impressions: Abdomen/Pelvis CT 08/13/18 23:25 IMPRESSION: Nonspecific nonenlarged as well as mildly enlarged lymph nodes of the mediastinum, as above. Consider short-term follow-up to ensure stability and/or resolution. Fatty infiltrative change to the liver. Sigmoid diverticulosis. No CT evidence for diverticulitis TECHNICAL DOCUMENTATION: Quality ID # 436: Final reports with documentation of one or more dose reduction techniques (e.g., Automated exposure control, adjustment of the mA and/or kV according to patient size, use of iterative reconstruction technique) 2010 [employer]- All Rights Reserved Chest CT 08/13/18 23:26 IMPRESSION: Nonspecific nonenlarged as well as mildly enlarged lymph nodes of the mediastinum, as above. Consider short-term follow-up to ensure stability and/or resolution. Fatty infiltrative change to the liver. Sigmoid diverticulosis. No CT evidence for diverticulitis TECHNICAL DOCUMENTATION: Quality ID # 436: Final reports with documentation of one or more dose reduction techniques (e.g., Automated exposure control, adjustment of the mA and/or kV according to patient size, use of iterative reconstruction technique) 2010 [employer]- All Rights Reserved Chest X-Ray 08/14/18 00:00 IMPRESSION: Tip of the central line in the cavoatrial junction. No pneumothorax 2010 [employer]- All Rights Reserved Assessment & Plan - Diagnosis (1) Acute on chronic respiratory failure with hypoxia Is this a current diagnosis for this admission?: Yes Plan: BiPAP versus high flow current antibiotic regimen (2) COPD with acute exacerbation Is this a current diagnosis for this admission?: Yes Plan: Generic Name Dose Route Start Last Admin Trade Name Freq PRN Reason Stop Dose Admin Nicotine 1 each 08/14/18 03:42 08/14/18 21:23 Nicoderm 21 Mg/24 Hr Transderm Patch TD 09/13/18 03:41 1 each DAILYP PRN WITHDRAWAL SYMPTOMS Albuterol 2.5 mg 08/14/18 10:01 08/14/18 20:28 Ventolin 0.083% Neb 2.5 Mg/3 Ml Ampul NEB 09/13/18 10:00 2.5 mg RTQ1HP PRN SHORTNESS OF BREATH Levalbuterol HCl 1.25 mg 08/14/18 10:30 08/15/18 08:17 Xopenex Neb 1.25 Mg/3 Ml Ampul NEB 09/13/18 10:29 1.25 mg RTQ8 CHENG Ipratropium Cameron 0.5 mg 08/14/18 16:00 08/15/18 08:17 Atrovent 0.02% Neb 0.5 Mg/2.5 Ml Ampul NEB 09/13/18 15:59 0.5 mg RTQ8 CHENG Budesonide 0.5 mg 08/14/18 11:00 08/15/18 08:17 Pulmicort Neb 0.5 Mg/2 Ml Ampul NEB 09/13/18 10:59 0.5 mg RTQ12 CHENG Methylprednisolone Sodium Succinate 40 mg 08/14/18 15:00 08/15/18 14:04 Solu-Medrol Inj/Pf 40 Mg/1 Ml Sdv IV 08/15/18 21:01 40 mg Q6A CHENG (3) Hypertension Qualifiers: Hypertension type: essential hypertension Qualified Code(s): I10 - Essential (primary) hypertension Is this a current diagnosis for this admission?: No (4) Septic shock Is this a current diagnosis for this admission?: Yes Plan: Multiple vasopressor agents Labs- All tests 24 hr 08/13/18 08/14/18 08/15/18 18:43 04:37 05:35 WBC 19.5 H 17.4 H 14.3 H No positive cultures thus far - Time Total Critical Time (Minutes): 55
[2018-08-15] MEDS: LANSOPRAZOLE 30 MG TAB.RAP.DR PO SCH (16:29)
[2018-08-15] MEDS: ALBUTEROL SULFATE 0.083% NEB 2.5 MG/3 ML AMPUL NEB PRN (20:01)
[2018-08-15] MEDS ORDERED: MONTELUKAST SODIUM 10 MG TABLET PO SCH (22:00)
[2018-08-15] MEDS: NICOTINE 21 MG/24 HR PATCH.TD24 TD PRN (22:43)
[2018-08-16] MEDS: LEVALBUTEROL HCL NEB 1.25 MG/3 ML AMPUL NEB SCH ×3 (00:16→15:54)
[2018-08-16] MEDS: IPRATROPIUM BROMIDE 0.02% NEB 0.5 MG/2.5 ML AMPUL NEB SCH ×3 (00:16→15:54)
[2018-08-16] MEDS: HEPARIN SOD (PORCINE) 5,000 UNIT/ML 1 ML SYRINGE SUBCUT SCH ×3 (05:21→23:14)
[2018-08-16] MEDS: LANSOPRAZOLE 30 MG TAB.RAP.DR PO SCH ×2 (05:21→16:24)
[2018-08-16 05:57] LABS: ARTERIAL BLOOD BASE EXCESS 0.2 mmol/L; ARTERIAL BLOOD FIO2 3LNC; ARTERIAL BLOOD H2CO3 1.11 mmol/L (1.05-1.35); ARTERIAL BLOOD HCO3 24.2 mmol/L (20-24); ARTERIAL BLOOD O2 SATURATION 93.6 % (94-98); ARTERIAL BLOOD PCO2 36.9 mmHg (35-45); ARTERIAL BLOOD PH 7.43 (7.35-7.45); ARTERIAL BLOOD PO2 65.3 mmHg (80-100); ARTERIAL BLOOD TOTAL CO2 25.3 mmol/L (21-25)
[2018-08-16 06:02] LABS: HEMATOCRIT 36.3 % (36.0-47.0); HEMOGLOBIN 11.9 g/dL (12.0-15.5); MEAN CORPUSCULAR HGB CONC 32.9 g/dL (32.0-36.0); MEAN CORPUSCULAR VOLUME 82 fl (80-97); PLATELET COUNT 179 10^3/uL (150-450); RED BLOOD COUNT 4.43 10^6/uL (3.72-5.28); RED CELL DISTRIBUTION WIDTH 14.4 % (11.5-14.0); WHITE BLOOD COUNT 21.8 10^3/uL (4.0-10.5)
[2018-08-16 06:24] LABS: ABSOLUTE LYMPHOCYTES# (MANUAL) 1.3 10^3/uL (0.5-4.7); ABSOLUTE MONOCYTES # (MANUAL) 0.2 10^3/uL (0.1-1.4); ABSOLUTE NEUTROPHILS# (MANUAL) 20.3 10^3/uL (1.7-8.2); BAND NEUTROPHILS % (MANUAL) 2 % (3-5); BASOPHILS % (MANUAL) 0 % (0-2); EOSINOPHILS % (MANUAL) 0 % (0-6); LYMPHOCYTES % (MANUAL) 6 % (13-45); MONOCYTES % (MANUAL) 1 % (3-13); SEGMENTED NEUTROPHILS % (MAN) 91 % (42-78); TOTAL CELLS COUNTED 100
[2018-08-16 06:25] LABS: PLATELET COMMENT ADEQUATE; POIKILOCYTOSIS SLIGHT; TARGET CELLS SLIGHT
[2018-08-16 07:12] LABS: ALANINE AMINOTRANSFERASE 34 U/L (9-52); ALBUMIN 2.9 g/dL (3.5-5.0); ALKALINE PHOSPHATASE 76 U/L (38-126); ANION GAP 10 (5-19); ASPARTATE AMINO TRANSFERASE 17 U/L (14-36); BILIRUBIN,DIRECT 0.2 mg/dL (0.0-0.4); BILIRUBIN,TOTAL 0.2 mg/dL (0.2-1.3); BLOOD UREA NITROGEN 24 mg/dL (7-20); CALCIUM 7.6 mg/dL (8.4-10.2); CARBON DIOXIDE 26 mmol/L (22-30); CHLORIDE 108 mmol/L (98-107); GLUCOSE 149 mg/dL (75-110); SODIUM 144.3 mmol/L (137-145); TOTAL PROTEIN 5.5 g/dL (6.3-8.2)
--- NOTE | 2018-08-16 07:18 | RADIOLOGY REPORT (SQ) ---
Chest single view on 08/16/2018 at 6:44 AM CLINICAL INDICATION: Respiratory failure COMPARISON: 08/14/2018 FINDINGS: Right IJ catheter tip extends just into the right atrium. The patient is status post left shoulder arthroplasty. Mild chronic interstitial changes are noted. The lungs are otherwise clear. Vascular calcification is noted in the aorta. Cardiac, hilar and mediastinal contours are within normal limits. IMPRESSION: No significant change in the apparent of the chest.
[2018-08-16] MEDS: ACETYLCYSTEINE 20% SOLN 800 MG/4 ML VIAL.NEB NEB SCH ×2 (08:49→19:53)
[2018-08-16] MEDS: BUDESONIDE NEB 0.5 MG/2 ML AMPUL NEB SCH ×2 (08:49→19:56)
[2018-08-16] MEDS: DOCUSATE SODIUM 100 MG CAPSULE PO SCH ×2 (09:53→17:11)
[2018-08-16] MEDS: GABAPENTIN 100 MG CAPSULE PO SCH ×3 (10:01→17:32)
[2018-08-16] MEDS: CEFEPIME 2 GM/D5W RTU 2 GM/50 ML RTUPB IV SCH ×2 (10:02→23:23)
[2018-08-16] MEDS: FENOFIBRATE NANOCRYSTALLIZED 48 MG TABLET PO SCH (10:02)
[2018-08-16 11:55] LABS: APPEARANCE,URINE CLEAR; BILIRUBIN,URINE NEGATIVE (NEGATIVE); COLOR,URINE YELLOW; GLUCOSE, URINE NEGATIVE (NEGATIVE); KETONES,URINE NEGATIVE (NEGATIVE); LEUKOCYTE ESTERASE,URINE NEGATIVE (NEGATIVE); NITRITE,URINE NEGATIVE (NEGATIVE); PROTEIN,URINE NEGATIVE (NEGATIVE); URINE SPECIFIC GRAVITY 1.017; UROBILINOGEN,URINE NEGATIVE mg/dL (<2.0)
--- NOTE | 2018-08-16 12:36 | PDOC PROGRESS REPORT ---
Subjective Progress Note for:: 08/16/18 Subjective:: Slightly improved Reason For Visit: SHOCK Physical Exam Vital Signs: Temp Pulse Resp BP Pulse Ox 97.9 F 102 H 24 H 127/74 H 95 08/16/18 08:25 08/16/18 08:25 08/16/18 08:25 08/16/18 08:25 08/16/18 08:25 Intake & Output 08/15/18 08/16/18 08/17/18 06:59 06:59 06:59 Intake Total 455 100 Output Total 1465 2049 Balance -1010 -1949 Weight 89.4 kg 88.5 kg General appearance: PRESENT: no acute distress, cooperative, disheveled, obese Head exam: PRESENT: atraumatic, normocephalic Eye exam: PRESENT: conjunctiva pale, EOMI Mouth exam: PRESENT: dry mucosa, neck supple, tongue midline Neck exam: ABSENT: carotid bruit, JVD, lymphadenopathy, thyromegaly, tracheal deviation, tracheostomy Respiratory exam: PRESENT: decreased breath sounds, prolonged expiratory phas, rales, rhonchi, tachypnea, unlabored. ABSENT: retraction, stridor Cardiovascular exam: PRESENT: +S1, +S2, tachycardia Pulses: PRESENT: normal radial pulses GI/Abdominal exam: PRESENT: soft. ABSENT: tenderness Gentrourinary exam: PRESENT: indwelling catheter Extremities exam: PRESENT: pedal edema. ABSENT: calf tenderness, clubbing, joint swelling Musculoskeletal exam: ABSENT: ambulatory, deformity, dislocation Neurological exam: PRESENT: alert, awake Psychiatric exam: PRESENT: flat affect Skin exam: PRESENT: dry, warm Results Laboratory Results: 08/16/18 05:30 08/16/18 06:35 08/16/18 08/16/18 08/16/18 05:30 05:30 05:30 WBC 21.8 H RBC 4.43 Hgb 11.9 L Hct 36.3 MCV 82 MCH 27.0 MCHC 32.9 RDW 14.4 H Plt Count 179 Seg Neutrophils % Not Reportable Lymphocytes % Not Reportable Monocytes % Not Reportable Eosinophils % Not Reportable Basophils % Not Reportable Absolute Neutrophils Not Reportable Absolute Lymphocytes Not Reportable Absolute Monocytes Not Reportable Absolute Eosinophils Not Reportable Absolute Basophils Not Reportable Carbonic Acid 1.11 HCO3/H2CO3 Ratio 21:1 ABG pH 7.43 ABG pCO2 36.9 ABG pO2 65.3 L ABG HCO3 24.2 H ABG O2 Saturation 93.6 L ABG Base Excess 0.2 FiO2 3LNC Sodium Cancelled Potassium Cancelled Chloride Cancelled Carbon Dioxide Cancelled Anion Gap Cancelled BUN Cancelled Creatinine Cancelled Est GFR ( Amer) Cancelled Est GFR (Non-Af Amer) Cancelled Glucose Cancelled Calcium Cancelled Magnesium Cancelled Total Bilirubin Cancelled AST Cancelled ALT Cancelled Alkaline Phosphatase Cancelled Total Protein Cancelled Albumin Cancelled 08/16/18 06:35 WBC RBC Hgb Hct MCV MCH MCHC RDW Plt Count Seg Neutrophils % Lymphocytes % Monocytes % Eosinophils % Basophils % Absolute Neutrophils Absolute Lymphocytes Absolute Monocytes Absolute Eosinophils Absolute Basophils Carbonic Acid HCO3/H2CO3 Ratio ABG pH ABG pCO2 ABG pO2 ABG HCO3 ABG O2 Saturation ABG Base Excess FiO2 Sodium 144.3 Potassium 4.0 Chloride 108 H Carbon Dioxide 26 Anion Gap 10 BUN 24 H Creatinine 0.77 Est GFR ( Amer) > 60 Est GFR (Non-Af Amer) > 60 Glucose 149 H Calcium 7.6 L Magnesium 1.7 Total Bilirubin 0.2 AST 17 ALT 34 Alkaline Phosphatase 76 Total Protein 5.5 L Albumin 2.9 L 08/15/18 05:35 Creatine Kinase < 20 L Impressions: Abdomen/Pelvis CT 08/13/18 23:25 IMPRESSION: Nonspecific nonenlarged as well as mildly enlarged lymph nodes of the mediastinum, as above. Consider short-term follow-up to ensure stability and/or resolution. Fatty infiltrative change to the liver. Sigmoid diverticulosis. No CT evidence for diverticulitis TECHNICAL DOCUMENTATION: Quality ID # [id number]: Final reports with documentation of one or more dose reduction techniques (e.g., Automated exposure control, adjustment of the mA and/or kV according to patient size, use of iterative reconstruction technique) 2010 [employer]- All Rights Reserved Chest CT 08/13/18 23:26 IMPRESSION: Nonspecific nonenlarged as well as mildly enlarged lymph nodes of the mediastinum, as above. Consider short-term follow-up to ensure stability and/or resolution. Fatty infiltrative change to the liver. Sigmoid diverticulosis. No CT evidence for diverticulitis TECHNICAL DOCUMENTATION: Quality ID # [id number]: Final reports with documentation of one or more dose reduction techniques (e.g., Automated exposure control, adjustment of the mA and/or kV according to patient size, use of iterative reconstruction technique) 2010 [employer]- All Rights Reserved Chest X-Ray 08/16/18 06:00 IMPRESSION: No significant change in the apparent of the chest. Assessment & Plan - Diagnosis (1) Acute on chronic respiratory failure with hypoxia Is this a current diagnosis for this admission?: Yes Plan: BiPAP Intermittently with nasal cannulas to eat postprandial (2) COPD with acute exacerbation Is this a current diagnosis for this admission?: Yes Plan: Generic Name Dose Route Start Last Admin Trade Name Freq PRN Reason Stop Dose Admin Nicotine 1 each 08/14/18 03:42 08/14/18 21:23 Nicoderm 21 Mg/24 Hr Transderm Patch TD 09/13/18 03:41 1 each DAILYP PRN WITHDRAWAL SYMPTOMS Albuterol 2.5 mg 08/14/18 10:01 08/14/18 20:28 Ventolin 0.083% Neb 2.5 Mg/3 Ml Ampul NEB 09/13/18 10:00 2.5 mg RTQ1HP PRN SHORTNESS OF BREATH Levalbuterol HCl 1.25 mg 08/14/18 10:30 08/15/18 08:17 Xopenex Neb 1.25 Mg/3 Ml Ampul NEB 09/13/18 10:29 1.25 mg RTQ8 CHENG Ipratropium [place] 0.5 mg 08/14/18 16:00 08/15/18 08:17 Atrovent 0.02% Neb 0.5 Mg/2.5 Ml Ampul NEB 09/13/18 15:59 0.5 mg RTQ8 CHENG Budesonide 0.5 mg 08/14/18 11:00 08/15/18 08:17 Pulmicort Neb 0.5 Mg/2 Ml Ampul NEB 09/13/18 10:59 0.5 mg RTQ12 CHENG Methylprednisolone Sodium Succinate 40 mg 08/14/18 15:00 08/15/18 14:04 Solu-Medrol Inj/Pf 40 Mg/1 Ml Sdv IV 08/15/18 21:01 40 mg Q6A CHENG (3) Hypertension Qualifiers: Hypertension type: essential hypertension Qualified Code(s): I10 - Essential (primary) hypertension Is this a current diagnosis for this admission?: No (4) Septic shock Is this a current diagnosis for this admission?: Yes Plan: No change at this time she is now off of vasopressor agents - Time Total Critical Time (Minutes): 40
--- NOTE | 2018-08-16 17:06 | PDOC PROGRESS REPORT ---
Subjective Progress Note for:: 08/16/18 Subjective:: Assumed care today. Ms. Samuel is a 73 yr old female with a PMH of COPD, HTN, and hyperlipidemia who presented with vomiting, profuse diarrhea and generalized weakness. She was noted to have significant leukocytosis with WBC of 19,000, lactic acidosis of 4, tachycardia, tachypnea and fever of 103. She was also hypotensive and was to be started on pressors but the hypotension improved with IV fluids. No acute event overnight. She syas she feels better today but continues to have loose stools albeit better formed compared to the last few days. She says she has been having diarrhea for the past 3 weeks now. She denies chest pain, SOB or cough. She denies lower urinary tract symptoms but says she did have prior UTI's without LUTS. Reason For Visit: SHOCK Physical Exam Vital Signs: Temp Pulse Resp BP Pulse Ox 97.9 F 102 H 24 H 127/74 H 94 08/16/18 10:00 08/16/18 10:00 08/16/18 10:00 08/16/18 10:00 08/16/18 10:00 Intake & Output 08/15/18 08/16/18 08/17/18 06:59 06:59 06:59 Intake Total 455 100 50 Output Total 1465 2050 500 Balance -1010 -1950 -450 Weight 197 lb 1.492 oz 195 lb 1.745 oz General appearance: PRESENT: no acute distress, well-developed, well-nourished Head exam: PRESENT: atraumatic, normocephalic Eye exam: PRESENT: conjunctiva pink, EOMI, PERRLA. ABSENT: scleral icterus Ear exam: PRESENT: normal external ear exam Mouth exam: PRESENT: moist, tongue midline Neck exam: ABSENT: carotid bruit, JVD, lymphadenopathy, thyromegaly Respiratory exam: PRESENT: clear to auscultation ladarius. ABSENT: rales, rhonchi, wheezes Cardiovascular exam: PRESENT: RRR. ABSENT: diastolic murmur, rubs, systolic murmur Pulses: PRESENT: normal dorsalis pedis pul GI/Abdominal exam: PRESENT: normal bowel sounds, soft. ABSENT: distended, guarding, mass, organolmegaly, rebound, tenderness Rectal exam: PRESENT: deferred Extremities exam: PRESENT: full ROM. ABSENT: calf tenderness, clubbing, pedal edema Neurological exam: PRESENT: alert, awake, oriented to person, oriented to place , oriented to time, oriented to situation, CN II-XII grossly intact. ABSENT: motor sensory deficit Results Laboratory Results: 08/16/18 05:30 08/16/18 06:35 08/16/18 08/16/18 08/16/18 05:30 05:30 05:30 WBC 21.8 H RBC 4.43 Hgb 11.9 L Hct 36.3 MCV 82 MCH 27.0 MCHC 32.9 RDW 14.4 H Plt Count 179 Seg Neutrophils % Not Reportable Lymphocytes % Not Reportable Monocytes % Not Reportable Eosinophils % Not Reportable Basophils % Not Reportable Absolute Neutrophils Not Reportable Absolute Lymphocytes Not Reportable Absolute Monocytes Not Reportable Absolute Eosinophils Not Reportable Absolute Basophils Not Reportable Carbonic Acid 1.11 HCO3/H2CO3 Ratio 21:1 ABG pH 7.43 ABG pCO2 36.9 ABG pO2 65.3 L ABG HCO3 24.2 H ABG O2 Saturation 93.6 L ABG Base Excess 0.2 FiO2 3LNC Sodium Cancelled Potassium Cancelled Chloride Cancelled Carbon Dioxide Cancelled Anion Gap Cancelled BUN Cancelled Creatinine Cancelled Est GFR ( Amer) Cancelled Est GFR (Non-Af Amer) Cancelled Glucose Cancelled Calcium Cancelled Magnesium Cancelled Total Bilirubin Cancelled AST Cancelled ALT Cancelled Alkaline Phosphatase Cancelled Total Protein Cancelled Albumin Cancelled Urine Color Urine Appearance Urine pH Ur Specific [place] Urine Protein Urine Glucose (UA) Urine Ketones Urine Blood Urine Nitrite Ur Leukocyte Esterase Urine WBC (Auto) Urine RBC (Auto) Stool for White Cells 08/16/18 08/16/18 08/16/18 06:35 11:21 11:21 WBC RBC Hgb Hct MCV MCH MCHC RDW Plt Count Seg Neutrophils % Lymphocytes % Monocytes % Eosinophils % Basophils % Absolute Neutrophils Absolute Lymphocytes Absolute Monocytes Absolute Eosinophils Absolute Basophils Carbonic Acid HCO3/H2CO3 Ratio ABG pH ABG pCO2 ABG pO2 ABG HCO3 ABG O2 Saturation ABG Base Excess FiO2 Sodium 144.3 Potassium 4.0 Chloride 108 H Carbon Dioxide 26 Anion Gap 10 BUN 24 H Creatinine 0.77 Est GFR ( Amer) > 60 Est GFR (Non-Af Amer) > 60 Glucose 149 H Calcium 7.6 L Magnesium 1.7 Total Bilirubin 0.2 AST 17 ALT 34 Alkaline Phosphatase 76 Total Protein 5.5 L Albumin 2.9 L Urine Color YELLOW Urine Appearance CLEAR Urine pH 6.0 Ur Specific [place] 1.017 Urine Protein NEGATIVE Urine Glucose (UA) NEGATIVE Urine Ketones NEGATIVE Urine Blood NEGATIVE Urine Nitrite NEGATIVE Ur Leukocyte Esterase NEGATIVE Urine WBC (Auto) 2 Urine RBC (Auto) 0 Stool for White Cells NO WBCs SEEN 08/15/18 05:35 Creatine Kinase < 20 L Impressions: Abdomen/Pelvis CT 08/13/18 23:25 IMPRESSION: Nonspecific nonenlarged as well as mildly enlarged lymph nodes of the mediastinum, as above. Consider short-term follow-up to ensure stability and/or resolution. Fatty infiltrative change to the liver. Sigmoid diverticulosis. No CT evidence for diverticulitis TECHNICAL DOCUMENTATION: Quality ID # 436: Final reports with documentation of one or more dose reduction techniques (e.g., Automated exposure control, adjustment of the mA and/or kV according to patient size, use of iterative reconstruction technique) 2010 [employer]- All Rights Reserved Chest CT 08/13/18 23:26 IMPRESSION: Nonspecific nonenlarged as well as mildly enlarged lymph nodes of the mediastinum, as above. Consider short-term follow-up to ensure stability and/or resolution. Fatty infiltrative change to the liver. Sigmoid diverticulosis. No CT evidence for diverticulitis TECHNICAL DOCUMENTATION: Quality ID # [id number]: Final reports with documentation of one or more dose reduction techniques (e.g., Automated exposure control, adjustment of the mA and/or kV according to patient size, use of iterative reconstruction technique) 2010 [employer]- All Rights Reserved Chest X-Ray 08/16/18 06:00 IMPRESSION: No significant change in the apparent of the chest. Assessment & Plan - Diagnosis (1) Hypotension Is this a current diagnosis for this admission?: Yes Plan: Resolved with IV fluids on admission. Possibly from volume depletion from profuse diarrhea. (2) COPD with acute exacerbation Is this a current diagnosis for this admission?: Yes Plan: Resolved. Patient received Levaquin and Zosyn initially. She was also on IV steroids with the last dose administered last night. (3) Diarrhea Qualifiers: Diarrhea type: unspecified type Qualified Code(s): R19.7 - Diarrhea, unspecified Is this a current diagnosis for this admission?: Yes Plan: Improving. C diff was negative. Will pursue a stool culture as patient says this has been going on for almost 3 weeks now. (4) Acute kidney injury Is this a current diagnosis for this admission?: Yes Plan: Resolved with IV fluids. Likely pre-renal from dehydration secondary to GI losses. (5) Leukocytosis Qualifiers: Leukocytosis type: unspecified Qualified Code(s): D72.829 - Elevated white blood cell count, unspecified Is this a current diagnosis for this admission?: Yes Plan: WBC continues to trend up. She did not have recurrence of fever. She was on IV steroids with the last dose being given last night. Exact etiology is unclear at the moment. She does continue to have loose stools which has improved since admission. Will repeat pancultures. - Time Time Spent with patient: 25-34 minutes
[2018-08-16] MEDS: ALBUTEROL SULFATE 0.083% NEB 2.5 MG/3 ML AMPUL NEB PRN (19:53)
[2018-08-16] MEDS ORDERED: ALPRAZOLAM 0.25 MG TABLET PO ONE ×2 (20:30→23:00)
[2018-08-16] MEDS: ATORVASTATIN CALCIUM 20 MG TABLET PO SCH (23:15)
[2018-08-16] MEDS: NICOTINE 21 MG/24 HR PATCH.TD24 TD PRN (23:23)
[2018-08-17] MEDS: IPRATROPIUM BROMIDE 0.02% NEB 0.5 MG/2.5 ML AMPUL NEB SCH ×4 (00:07→23:52)
[2018-08-17] MEDS: LEVALBUTEROL HCL NEB 1.25 MG/3 ML AMPUL NEB SCH ×4 (00:07→23:52)
[2018-08-17] MEDS ORDERED: LOPERAMIDE HCL 2 MG CAPSULE PO ONE (02:45)
[2018-08-17] MEDS: HEPARIN SOD (PORCINE) 5,000 UNIT/ML 1 ML SYRINGE SUBCUT SCH ×3 (05:59→22:51)
[2018-08-17] MEDS: LANSOPRAZOLE 30 MG TAB.RAP.DR PO SCH ×2 (05:59→17:27)
[2018-08-17 06:04] LABS: ABSOLUTE BASOPHILS # (AUTO) 0.1 10^3/uL (0.0-0.2); ABSOLUTE EOSINOPHILS # (AUTO) 0.3 10^3/uL (0.0-0.6); ABSOLUTE LYMPHOCYTES (AUTO) 3.1 10^3/uL (0.5-4.7); ABSOLUTE MONOCYTES (AUTO) 1.3 10^3/uL (0.1-1.4); ABSOLUTE NEUT (AUTO) 8.1 10^3/uL (1.7-8.2); BASOPHILS % (AUTO) 0.6 % (0-2); EOSINOPHILS % (AUTO) 2.2 % (0-6); HEMATOCRIT 37.1 % (36.0-47.0); HEMOGLOBIN 12.5 g/dL (12.0-15.5); LYMPHOCYTES % (AUTO) 24.1 % (13-45); MEAN CORPUSCULAR HEMOGLOBIN 26.9 pg (27.0-33.4); MEAN CORPUSCULAR HGB CONC 33.7 g/dL (32.0-36.0); MEAN CORPUSCULAR VOLUME 80 fl (80-97); MONOCYTES % (AUTO) 10.5 % (3-13); PLATELET COUNT 175 10^3/uL (150-450); RED BLOOD COUNT 4.65 10^6/uL (3.72-5.28); RED CELL DISTRIBUTION WIDTH 14.1 % (11.5-14.0); SEGMENTED NEUTROPHILS % (AUTO) 62.6 % (42-78); TOTAL CELLS COUNTED % (AUTO) 100 %; WHITE BLOOD COUNT 12.9 10^3/uL (4.0-10.5)
[2018-08-17 06:26] LABS: ALANINE AMINOTRANSFERASE 71 U/L (9-52); ALKALINE PHOSPHATASE 76 U/L (38-126); ANION GAP 10 (5-19); ASPARTATE AMINO TRANSFERASE 60 U/L (14-36); BILIRUBIN,DIRECT 0.2 mg/dL (0.0-0.4); BILIRUBIN,TOTAL 0.4 mg/dL (0.2-1.3); BLOOD UREA NITROGEN 21 mg/dL (7-20); CALCIUM 7.5 mg/dL (8.4-10.2); CARBON DIOXIDE 26 mmol/L (22-30); CHLORIDE 107 mmol/L (98-107); GLUCOSE 69 mg/dL (75-110); POTASSIUM 3.7 mmol/L (3.6-5.0); SODIUM 142.9 mmol/L (137-145); TOTAL PROTEIN 5.8 g/dL (6.3-8.2)
[2018-08-17 06:43] LABS: ARTERIAL BLOOD BASE EXCESS -0.2 mmol/L; ARTERIAL BLOOD FIO2 21%; ARTERIAL BLOOD H2CO3 1.06 mmol/L (1.05-1.35); ARTERIAL BLOOD HCO3 23.4 mmol/L (20-24); ARTERIAL BLOOD O2 SATURATION 94.9 % (94-98); ARTERIAL BLOOD PCO2 35.1 mmHg (35-45); ARTERIAL BLOOD PH 7.44 (7.35-7.45); ARTERIAL BLOOD PO2 70.4 mmHg (80-100); ARTERIAL BLOOD TOTAL CO2 24.5 mmol/L (21-25)
[2018-08-17] MEDS: ACETYLCYSTEINE 20% SOLN 800 MG/4 ML VIAL.NEB NEB SCH (08:06)
[2018-08-17] MEDS: BUDESONIDE NEB 0.5 MG/2 ML AMPUL NEB SCH ×2 (08:06→20:07)
--- NOTE | 2018-08-17 08:27 | RADIOLOGY REPORT (SQ) ---
EXAM DESCRIPTION: CHEST SINGLE VIEW COMPLETED DATE/TIME: 08/17/2018 8:11 am REASON FOR STUDY: resp failure COMPARISON: 08/16/2018 EXAM PARAMETERS: NUMBER OF VIEWS: One view. TECHNIQUE: Single frontal radiographic view of the chest acquired. RADIATION DOSE: NA LIMITATIONS: None. FINDINGS: LUNGS AND PLEURA: No opacities, masses or pneumothorax. No pleural effusion. The previous ly described chronic appearing interstitial changes appears stable. MEDIASTINUM AND HILAR STRUCTURES: No masses. Contour normal. HEART AND VASCULAR STRUCTURES: Heart normal in size. Normal vasculature. BONES: No acute findings. HARDWARE: The right-sided central line is unchanged in position. OTHER: Left shoulder prosthesis is again identified. Surgical hardware is again identified at the [place] of the right shoulder. IMPRESSION: No significant interval change. No acute findings. Other findings as noted above TECHNICAL DOCUMENTATION: JOB ID: [id number] [employer]- All Rights Reserved Reading location - IP/workstation name: [email or web address]
[2018-08-17] MEDS: DOCUSATE SODIUM 100 MG CAPSULE PO SCH ×2 (10:10→17:25)
[2018-08-17] MEDS: GABAPENTIN 100 MG CAPSULE PO SCH ×3 (10:18→17:27)
[2018-08-17] MEDS: FENOFIBRATE NANOCRYSTALLIZED 48 MG TABLET PO SCH (10:18)
[2018-08-17] MEDS: NORMAL SALINE 1000 ML 1,000 ML IV PRN ×2 (12:19→22:50)
[2018-08-17] MEDS ORDERED: DICYCLOMINE HCL 10 MG CAPSULE PO PRN (13:31)
--- NOTE | 2018-08-17 17:23 | PDOC PROGRESS REPORT ---
Subjective Progress Note for:: 08/17/18 Subjective:: Ms. Samuel is a 73 yr old female with a PMH of COPD, HTN, and hyperlipidemia who presented with vomiting, profuse diarrhea and generalized weakness. She was noted to have significant leukocytosis with WBC of 19,000, lactic acidosis of 4 , tachycardia, tachypnea and fever of 103. She was also hypotensive and was to be started on pressors but the hypotension improved with IV fluids. Patient had 8 watery, nonbloody stools overnight. Upon encounter, she says she feels better overall but is bothered by her recurring diarrhea. She has occasional crampy abdominal pain. Denies nausea or vomiting. She denies chest pain, SOB or cough. Reason For Visit: SHOCK Physical Exam Vital Signs: Temp Pulse Resp BP Pulse Ox 99.0 F 92 16 119/62 97 08/17/18 15:19 08/17/18 15:58 08/17/18 15:58 08/17/18 15:19 08/17/18 15:58 Intake & Output 08/16/18 08/17/18 08/18/18 06:59 06:59 06:59 Intake Total 100 100 620 Output Total 2050 500 Balance -1950 -400 620 Weight 195 lb 1.745 oz 190 lb 4.143 oz General appearance: PRESENT: no acute distress, well-developed, well-nourished Head exam: PRESENT: atraumatic, normocephalic Eye exam: PRESENT: conjunctiva pink, EOMI, PERRLA. ABSENT: scleral icterus Ear exam: PRESENT: normal external ear exam Mouth exam: PRESENT: moist, tongue midline Neck exam: ABSENT: carotid bruit, JVD, lymphadenopathy, thyromegaly Respiratory exam: PRESENT: clear to auscultation ladarius. ABSENT: rales, rhonchi, wheezes Cardiovascular exam: PRESENT: RRR. ABSENT: diastolic murmur, rubs, systolic murmur Pulses: PRESENT: normal dorsalis pedis pul GI/Abdominal exam: PRESENT: hyperactive bowel sounds, soft. ABSENT: distended, guarding, mass, organolmegaly, rebound, tenderness Rectal exam: PRESENT: deferred Neurological exam: PRESENT: alert, awake, oriented to person, oriented to place , oriented to time, oriented to situation, CN II-XII grossly intact. ABSENT: motor sensory deficit Results Laboratory Results: 08/17/18 05:50 08/17/18 05:50 08/17/18 08/17/18 08/17/18 00:35 05:50 05:50 WBC 12.9 H RBC 4.65 Hgb 12.5 Hct 37.1 MCV 80 MCH 26.9 L MCHC 33.7 RDW 14.1 H Plt Count 175 Seg Neutrophils % 62.6 Lymphocytes % 24.1 Monocytes % 10.5 Eosinophils % 2.2 Basophils % 0.6 Absolute Neutrophils 8.1 Absolute Lymphocytes 3.1 Absolute Monocytes 1.3 Absolute Eosinophils 0.3 Absolute Basophils 0.1 Carbonic Acid HCO3/H2CO3 Ratio ABG pH ABG pCO2 ABG pO2 ABG HCO3 ABG O2 Saturation ABG Base Excess FiO2 Sodium 142.9 Potassium 3.7 Chloride 107 Carbon Dioxide 26 Anion Gap 10 BUN 21 H Creatinine 0.78 Est GFR ( Amer) > 60 Est GFR (Non-Af Amer) > 60 Glucose 69 L Calcium 7.5 L Magnesium 1.7 Total Bilirubin 0.4 AST 60 H ALT 71 H Alkaline Phosphatase 76 Total Protein 5.8 L Albumin 3.0 L Lipase 112.7 08/17/18 06:25 WBC RBC Hgb Hct MCV MCH MCHC RDW Plt Count Seg Neutrophils % Lymphocytes % Monocytes % Eosinophils % Basophils % Absolute Neutrophils Absolute Lymphocytes Absolute Monocytes Absolute Eosinophils Absolute Basophils Carbonic Acid 1.06 HCO3/H2CO3 Ratio 22:1 ABG pH 7.44 ABG pCO2 35.1 ABG pO2 70.4 L ABG HCO3 23.4 ABG O2 Saturation 94.9 ABG Base Excess -0.2 FiO2 21% Sodium Potassium Chloride Carbon Dioxide Anion Gap BUN Creatinine Est GFR ( Amer) Est GFR (Non-Af Amer) Glucose Calcium Magnesium Total Bilirubin AST ALT Alkaline Phosphatase Total Protein Albumin Lipase 08/14/18 20:50 Sputum Gram Stain - Final 08/14/18 20:50 Sputum Sputum Culture - Final C.albicans/C.dubliniensis Greatly Reduced Normal [place] 08/15/18 05:35 Creatine Kinase < 20 L Impressions: Abdomen/Pelvis CT 08/13/18 23:25 IMPRESSION: Nonspecific nonenlarged as well as mildly enlarged lymph nodes of the mediastinum, as above. Consider short-term follow-up to ensure stability and/or resolution. Fatty infiltrative change to the liver. Sigmoid diverticulosis. No CT evidence for diverticulitis TECHNICAL DOCUMENTATION: Quality ID # [id number]: Final reports with documentation of one or more dose reduction techniques (e.g., Automated exposure control, adjustment of the mA and/or kV according to patient size, use of iterative reconstruction technique) 2010 [employer]- All Rights Reserved Chest CT 08/13/18 23:26 IMPRESSION: Nonspecific nonenlarged as well as mildly enlarged lymph nodes of the mediastinum, as above. Consider short-term follow-up to ensure stability and/or resolution. Fatty infiltrative change to the liver. Sigmoid diverticulosis. No CT evidence for diverticulitis TECHNICAL DOCUMENTATION: Quality ID # [id number]: Final reports with documentation of one or more dose reduction techniques (e.g., Automated exposure control, adjustment of the mA and/or kV according to patient size, use of iterative reconstruction technique) 2010 [employer]- All Rights Reserved Chest X-Ray 08/17/18 06:00 IMPRESSION: No significant interval change. No acute findings. Other findings as noted above Assessment & Plan - Diagnosis (1) Hypotension Is this a current diagnosis for this admission?: Yes Plan: Resolved with IV fluids on admission. Possibly from volume depletion from profuse diarrhea. (2) COPD with acute exacerbation Is this a current diagnosis for this admission?: Yes Plan: Resolved. Patient received Levaquin and Zosyn initially. She was also on IV steroids with the last dose administered last night. (3) Diarrhea Qualifiers: Diarrhea type: unspecified type Qualified Code(s): R19.7 - Diarrhea, unspecified Is this a current diagnosis for this admission?: Yes Plan: Improving. C. diff was negative. Stool culture still pending. Requested records from patient's GI and reviewed recent EGD and colonoscopy results done on March 25, 2018. (4) Acute kidney injury Is this a current diagnosis for this admission?: Yes Plan: Resolved with IV fluids. Likely pre-renal from dehydration secondary to GI losses. (5) Leukocytosis Qualifiers: Leukocytosis type: unspecified Qualified Code(s): D72.829 - Elevated white blood cell count, unspecified Is this a current diagnosis for this admission?: Yes Plan: Resolved. She did not have recurrence of fever. She was on IV steroids with the last dose being given on 08/15/18. - Time Time Spent with patient: 25-34 minutes
[2018-08-17] MEDS: ALBUTEROL SULFATE 0.083% NEB 2.5 MG/3 ML AMPUL NEB PRN (20:07)
[2018-08-17] MEDS: ATORVASTATIN CALCIUM 20 MG TABLET PO SCH (22:51)
[2018-08-17] MEDS: NICOTINE 21 MG/24 HR PATCH.TD24 TD PRN (23:00)
[2018-08-18] MEDS: LANSOPRAZOLE 30 MG TAB.RAP.DR PO SCH ×2 (05:45→17:48)
[2018-08-18] MEDS: HEPARIN SOD (PORCINE) 5,000 UNIT/ML 1 ML SYRINGE SUBCUT SCH ×3 (05:45→21:37)
[2018-08-18] MEDS: NORMAL SALINE 1000 ML 1,000 ML IV PRN ×2 (05:50→15:03)
[2018-08-18] MEDS: IPRATROPIUM BROMIDE 0.02% NEB 0.5 MG/2.5 ML AMPUL NEB SCH ×3 (08:01→23:47)
[2018-08-18] MEDS: LEVALBUTEROL HCL NEB 1.25 MG/3 ML AMPUL NEB SCH ×3 (08:01→23:47)
[2018-08-18] MEDS: BUDESONIDE NEB 0.5 MG/2 ML AMPUL NEB SCH ×2 (08:01→20:08)
[2018-08-18] MEDS: GABAPENTIN 100 MG CAPSULE PO SCH ×3 (09:11→17:48)
[2018-08-18] MEDS: FENOFIBRATE NANOCRYSTALLIZED 48 MG TABLET PO SCH (09:11)
[2018-08-18] MEDS: DOCUSATE SODIUM 100 MG CAPSULE PO SCH ×3 (09:12→18:22)
--- NOTE | 2018-08-18 15:01 | PDOC PROGRESS REPORT ---
Subjective Progress Note for:: 08/18/18 Subjective:: Ms. Samuel is a 73 yr old female with a PMH of COPD, HTN, and hyperlipidemia who presented with vomiting, profuse diarrhea and generalized weakness. She was noted to have significant leukocytosis with WBC of 19,000, lactic acidosis of 4 , tachycardia, tachypnea and fever of 103. She was also hypotensive and was to be started on pressors but the hypotension improved with IV fluids. No acute event overnight. She only had 2 BM overnight and they were better formed. Her crampy abdominal pain is improving. Denies nausea or vomiting. She is now tolerating diet well. She denies chest pain, SOB or cough. Reason For Visit: SHOCK Physical Exam Vital Signs: Temp Pulse Resp BP Pulse Ox 97.7 F 98 19 146/61 H 94 08/18/18 10:53 08/18/18 10:53 08/18/18 10:53 08/18/18 10:53 08/18/18 10:53 Intake & Output 08/17/18 08/18/18 08/19/18 06:59 06:59 06:59 Intake Total 100 3575 354 Output Total 500 Balance -400 3575 354 Weight 190 lb 4.143 oz 193 lb 9.054 oz General appearance: PRESENT: no acute distress, well-developed, well-nourished Head exam: PRESENT: atraumatic, normocephalic Eye exam: PRESENT: conjunctiva pink, EOMI, PERRLA. ABSENT: scleral icterus Ear exam: PRESENT: normal external ear exam Mouth exam: PRESENT: moist, tongue midline Neck exam: ABSENT: carotid bruit, JVD, lymphadenopathy, thyromegaly Respiratory exam: PRESENT: clear to auscultation ladarius. ABSENT: rales, rhonchi, wheezes Cardiovascular exam: PRESENT: RRR. ABSENT: diastolic murmur, rubs, systolic murmur Pulses: PRESENT: normal dorsalis pedis pul GI/Abdominal exam: PRESENT: normal bowel sounds, soft. ABSENT: distended, guarding, mass, organolmegaly, rebound, tenderness Rectal exam: PRESENT: deferred Extremities exam: PRESENT: full ROM. ABSENT: calf tenderness, clubbing, pedal edema Neurological exam: PRESENT: alert, awake, oriented to person, oriented to place , oriented to time, oriented to situation, CN II-XII grossly intact. ABSENT: motor sensory deficit Results Laboratory Results: 08/17/18 05:50 08/17/18 05:50 08/16/18 11:21 Stool - Stool - Final 08/16/18 11:21 Stool - Stool Stool Culture - Final NO SALMONELLA, SHIGELLA, CAMPYLOBACTER, OR E.COLI 0157 RECOVERED. NEGATIVE FOR SHIGA TOXINS 1&2. 08/14/18 20:50 Sputum Gram Stain - Final 08/14/18 20:50 Sputum Sputum Culture - Final C.albicans/C.dubliniensis Greatly Reduced Normal [place]ila 08/15/18 05:35 Creatine Kinase < 20 L Impressions: Abdomen/Pelvis CT 08/13/18 23:25 IMPRESSION: Nonspecific nonenlarged as well as mildly enlarged lymph nodes of the mediastinum, as above. Consider short-term follow-up to ensure stability and/or resolution. Fatty infiltrative change to the liver. Sigmoid diverticulosis. No CT evidence for diverticulitis TECHNICAL DOCUMENTATION: Quality ID # [id number]: Final reports with documentation of one or more dose reduction techniques (e.g., Automated exposure control, adjustment of the mA and/or kV according to patient size, use of iterative reconstruction technique) 2010 [employer]- All Rights Reserved Chest CT 08/13/18 23:26 IMPRESSION: Nonspecific nonenlarged as well as mildly enlarged lymph nodes of the mediastinum, as above. Consider short-term follow-up to ensure stability and/or resolution. Fatty infiltrative change to the liver. Sigmoid diverticulosis. No CT evidence for diverticulitis TECHNICAL DOCUMENTATION: Quality ID # [id number]: Final reports with documentation of one or more dose reduction techniques (e.g., Automated exposure control, adjustment of the mA and/or kV according to patient size, use of iterative reconstruction technique) 2010 [employer]- All Rights Reserved Chest X-Ray 08/17/18 06:00 IMPRESSION: No significant interval change. No acute findings. Other findings as noted above Assessment & Plan - Diagnosis (1) Hypotension Is this a current diagnosis for this admission?: Yes Plan: Resolved with IV fluids on admission. Possibly from volume depletion from profuse diarrhea. (2) COPD with acute exacerbation Is this a current diagnosis for this admission?: Yes Plan: Resolved. Patient received Levaquin and Zosyn initially. She was also on IV steroids. (3) Diarrhea Qualifiers: Diarrhea type: unspecified type Qualified Code(s): R19.7 - Diarrhea, unspecified Is this a current diagnosis for this admission?: Yes Plan: Improving. C. diff was negative. Stool culture came back negative today. Sent for ova and parasite testing which will be a sent out test. Requested records from patient's GI and reviewed recent EGD and colonoscopy results done on March 25, 2018 which were unremarkable aside from gastritis, internal hemorrhoids and diverticulosis. (4) Acute kidney injury Is this a current diagnosis for this admission?: Yes Plan: Resolved with IV fluids. Likely pre-renal from dehydration secondary to GI losses. (5) Leukocytosis Qualifiers: Leukocytosis type: unspecified Qualified Code(s): D72.829 - Elevated white blood cell count, unspecified Is this a current diagnosis for this admission?: Yes Plan: Resolving. She did not have recurrence of fever. She was on IV steroids with the last dose being given on 08/15/18. - Time Time Spent with patient: 15-24 minutes
[2018-08-18] MEDS: ATORVASTATIN CALCIUM 20 MG TABLET PO SCH (21:36)
[2018-08-18] MEDS: NICOTINE 21 MG/24 HR PATCH.TD24 TD PRN (23:43)
[2018-08-19 05:01] LABS: ABSOLUTE EOSINOPHILS # (AUTO) 1.4 10^3/uL (0.0-0.6); ABSOLUTE LYMPHOCYTES (AUTO) 2.9 10^3/uL (0.5-4.7); ABSOLUTE MONOCYTES (AUTO) 0.7 10^3/uL (0.1-1.4); ABSOLUTE NEUT (AUTO) 7.3 10^3/uL (1.7-8.2); BASOPHILS % (AUTO) 0.4 % (0-2); EOSINOPHILS % (AUTO) 11.1 % (0-6); HEMATOCRIT 35.9 % (36.0-47.0); HEMOGLOBIN 11.9 g/dL (12.0-15.5); LYMPHOCYTES % (AUTO) 23.6 % (13-45); MEAN CORPUSCULAR HEMOGLOBIN 26.9 pg (27.0-33.4); MEAN CORPUSCULAR HGB CONC 33.2 g/dL (32.0-36.0); MEAN CORPUSCULAR VOLUME 81 fl (80-97); MONOCYTES % (AUTO) 5.8 % (3-13); PLATELET COUNT 193 10^3/uL (150-450); RED BLOOD COUNT 4.44 10^6/uL (3.72-5.28); RED CELL DISTRIBUTION WIDTH 14.2 % (11.5-14.0); SEGMENTED NEUTROPHILS % (AUTO) 59.1 % (42-78); TOTAL CELLS COUNTED % (AUTO) 100 %; WHITE BLOOD COUNT 12.3 10^3/uL (4.0-10.5)
[2018-08-19 05:22] LABS: ALANINE AMINOTRANSFERASE 63 U/L (9-52); ALBUMIN 2.9 g/dL (3.5-5.0); ALKALINE PHOSPHATASE 83 U/L (38-126); ANION GAP 10 (5-19); ASPARTATE AMINO TRANSFERASE 25 U/L (14-36); BILIRUBIN,DIRECT 0.1 mg/dL (0.0-0.4); BILIRUBIN,TOTAL 0.3 mg/dL (0.2-1.3); BLOOD UREA NITROGEN 14 mg/dL (7-20); CALCIUM 8.7 mg/dL (8.4-10.2); CARBON DIOXIDE 28 mmol/L (22-30); CHLORIDE 105 mmol/L (98-107); GLUCOSE 102 mg/dL (75-110); POTASSIUM 4.1 mmol/L (3.6-5.0); SODIUM 142.8 mmol/L (137-145); TOTAL PROTEIN 5.5 g/dL (6.3-8.2)
[2018-08-19] MEDS: HEPARIN SOD (PORCINE) 5,000 UNIT/ML 1 ML SYRINGE SUBCUT SCH ×3 (05:23→21:51)
[2018-08-19] MEDS: LANSOPRAZOLE 30 MG TAB.RAP.DR PO SCH ×2 (05:23→17:34)
[2018-08-19] MEDS: ACETAMINOPHEN 325 MG TABLET PO PRN ×2 (07:05→13:13)
[2018-08-19] MEDS: IPRATROPIUM BROMIDE 0.02% NEB 0.5 MG/2.5 ML AMPUL NEB SCH ×3 (07:49→23:53)
[2018-08-19] MEDS: BUDESONIDE NEB 0.5 MG/2 ML AMPUL NEB SCH ×2 (07:50→20:11)
[2018-08-19] MEDS: LEVALBUTEROL HCL NEB 1.25 MG/3 ML AMPUL NEB SCH ×3 (07:50→23:53)
[2018-08-19] MEDS: NORMAL SALINE 1000 ML 1,000 ML IV PRN (10:24)
[2018-08-19] MEDS: FENOFIBRATE NANOCRYSTALLIZED 48 MG TABLET PO SCH (10:39)
[2018-08-19] MEDS: GABAPENTIN 100 MG CAPSULE PO SCH ×3 (10:39→17:34)
[2018-08-19] MEDS: DOCUSATE SODIUM 100 MG CAPSULE PO SCH ×2 (10:40→17:20)
[2018-08-19] MEDS: ESCITALOPRAM OXALATE 10 MG TABLET PO SCH (13:11)
--- NOTE | 2018-08-19 14:48 | PDOC PROGRESS REPORT ---
Subjective Progress Note for:: 08/19/18 Subjective:: Ms. Samuel is a 73 yr old female with a PMH of COPD, HTN, and hyperlipidemia who presented with vomiting, profuse diarrhea and generalized weakness. She was noted to have significant leukocytosis with WBC of 19,000, lactic acidosis of 4 , tachycardia, tachypnea and fever of 103. She was also hypotensive and was to be started on pressors but the hypotension improved with IV fluids. No acute event overnight. Patient did not have any BM during the day yesterday. However, she had recurrence of 2 watery stools overnight per night RN. Patient denies nausea or vomiting. She is tolerating diet well. She denies chest pain, SOB or cough. Reason For Visit: SHOCK Physical Exam Vital Signs: Temp Pulse Resp BP Pulse Ox 97.4 F 96 20 127/72 H 93 08/19/18 11:11 08/19/18 11:11 08/19/18 11:11 08/19/18 11:11 08/19/18 11:11 Intake & Output 08/18/18 08/19/18 08/20/18 06:59 06:59 06:59 Intake Total 3575 3264 1204 Output Total 650 300 Balance 3575 2614 904 Weight 193 lb 9.054 oz 197 lb 15.602 oz General appearance: PRESENT: no acute distress, well-developed, well-nourished Head exam: PRESENT: atraumatic, normocephalic Eye exam: PRESENT: conjunctiva pink, EOMI, PERRLA. ABSENT: scleral icterus Ear exam: PRESENT: normal external ear exam Mouth exam: PRESENT: moist, tongue midline Neck exam: ABSENT: carotid bruit, JVD, lymphadenopathy, thyromegaly Respiratory exam: PRESENT: clear to auscultation ladarius. ABSENT: rales, rhonchi, wheezes Cardiovascular exam: PRESENT: RRR. ABSENT: diastolic murmur, rubs, systolic murmur Pulses: PRESENT: normal dorsalis pedis pul GI/Abdominal exam: PRESENT: normal bowel sounds, soft. ABSENT: distended, guarding, mass, organolmegaly, rebound, tenderness Rectal exam: PRESENT: deferred Neurological exam: PRESENT: alert, awake, oriented to person, oriented to place , oriented to time, oriented to situation, CN II-XII grossly intact. ABSENT: motor sensory deficit Results Laboratory Results: 08/19/18 04:34 08/19/18 04:34 08/19/18 08/19/18 04:34 04:34 WBC 12.3 H RBC 4.44 Hgb 11.9 L Hct 35.9 L MCV 81 MCH 26.9 L MCHC 33.2 RDW 14.2 H Plt Count 193 Seg Neutrophils % 59.1 Lymphocytes % 23.6 Monocytes % 5.8 Eosinophils % 11.1 H Basophils % 0.4 Absolute Neutrophils 7.3 Absolute Lymphocytes 2.9 Absolute Monocytes 0.7 Absolute Eosinophils 1.4 H Absolute Basophils 0.0 Sodium 142.8 Potassium 4.1 Chloride 105 Carbon Dioxide 28 Anion Gap 10 BUN 14 Creatinine 0.65 Est GFR ( Amer) > 60 Est GFR (Non-Af Amer) > 60 Glucose 102 Calcium 8.7 Total Bilirubin 0.3 AST 25 ALT 63 H Alkaline Phosphatase 83 Total Protein 5.5 L Albumin 2.9 L 08/15/18 05:35 Creatine Kinase < 20 L Impressions: Abdomen/Pelvis CT 08/13/18 23:25 IMPRESSION: Nonspecific nonenlarged as well as mildly enlarged lymph nodes of the mediastinum, as above. Consider short-term follow-up to ensure stability and/or resolution. Fatty infiltrative change to the liver. Sigmoid diverticulosis. No CT evidence for diverticulitis TECHNICAL DOCUMENTATION: Quality ID # [id number]: Final reports with documentation of one or more dose reduction techniques (e.g., Automated exposure control, adjustment of the mA and/or kV according to patient size, use of iterative reconstruction technique) 2010 [employer]- All Rights Reserved Chest CT 08/13/18 23:26 IMPRESSION: Nonspecific nonenlarged as well as mildly enlarged lymph nodes of the mediastinum, as above. Consider short-term follow-up to ensure stability and/or resolution. Fatty infiltrative change to the liver. Sigmoid diverticulosis. No CT evidence for diverticulitis TECHNICAL DOCUMENTATION: Quality ID # [id number]: Final reports with documentation of one or more dose reduction techniques (e.g., Automated exposure control, adjustment of the mA and/or kV according to patient size, use of iterative reconstruction technique) 2010 [employer]- All Rights Reserved Chest X-Ray 08/17/18 06:00 IMPRESSION: No significant interval change. No acute findings. Other findings as noted above Assessment & Plan - Diagnosis (1) Diarrhea Qualifiers: Diarrhea type: unspecified type Qualified Code(s): R19.7 - Diarrhea, unspecified Is this a current diagnosis for this admission?: Yes Plan: Improving. C. diff was negative. Stool culture came back negative today. Sample sent for ova and parasite testing which is a "send out test". Requested records from patient's GI and reviewed recent EGD and colonoscopy results done on March 25, 2018 which were unremarkable aside from gastritis, internal hemorrhoids and diverticulosis. Patient has recurring diarrhea. She does say she eats lots of fruits and products from and [place] and reported having passed a "worm/parasite" several years before. As mentioned, ova and parasite testing are still pending. Another differential causing her recurrence diarrhea is acquired lactase deficiency which is not uncommon to occur in adult patients who develop viral or bacterial gastroenteritis. She has been eating dairy products as well here. It could be a possibility that she had a viral gastroenteritis and subsequently developed this. Will try to hold off dairy products and see if there is improvement of diarrhea with such dietary restriction. (2) Hypotension Is this a current diagnosis for this admission?: Yes Plan: Resolved with IV fluids on admission. Possibly from volume depletion from profuse diarrhea. (3) COPD with acute exacerbation Is this a current diagnosis for this admission?: Yes Plan: Resolved. Patient received Levaquin and Zosyn initially. She was also on IV steroids. (4) Acute kidney injury Is this a current diagnosis for this admission?: Yes Plan: Resolved with IV fluids. Likely pre-renal from dehydration secondary to GI losses. (5) Leukocytosis Qualifiers: Leukocytosis type: unspecified Qualified Code(s): D72.829 - Elevated white blood cell count, unspecified Is this a current diagnosis for this admission?: Yes Plan: Resolving. She did not have recurrence of fever. She was on IV steroids with the last dose being given on 08/15/18. - Time Time Spent with patient: 25-34 minutes
[2018-08-19] MEDS: ALBUTEROL SULFATE 0.083% NEB 2.5 MG/3 ML AMPUL NEB PRN (20:11)
[2018-08-19 21:32] LABS: APPEARANCE,URINE CLEAR; BILIRUBIN,URINE NEGATIVE (NEGATIVE); COLOR,URINE YELLOW; GLUCOSE, URINE NEGATIVE (NEGATIVE); KETONES,URINE NEGATIVE (NEGATIVE); LEUKOCYTE ESTERASE,URINE NEGATIVE (NEGATIVE); NITRITE,URINE NEGATIVE (NEGATIVE); PROTEIN,URINE NEGATIVE (NEGATIVE); URINE SPECIFIC GRAVITY 1.015; UROBILINOGEN,URINE NEGATIVE mg/dL (<2.0)
[2018-08-19] MEDS: ATORVASTATIN CALCIUM 20 MG TABLET PO SCH (21:51)
[2018-08-19] MEDS: NICOTINE 21 MG/24 HR PATCH.TD24 TD PRN (23:27)
[2018-08-20] MEDS: HEPARIN SOD (PORCINE) 5,000 UNIT/ML 1 ML SYRINGE SUBCUT SCH ×2 (05:20→14:12)
[2018-08-20] MEDS: LANSOPRAZOLE 30 MG TAB.RAP.DR PO SCH (05:28)
[2018-08-20] MEDS: NORMAL SALINE 1000 ML 1,000 ML IV PRN (06:30)
[2018-08-20] MEDS: LEVALBUTEROL HCL NEB 1.25 MG/3 ML AMPUL NEB SCH (07:50)
[2018-08-20] MEDS: IPRATROPIUM BROMIDE 0.02% NEB 0.5 MG/2.5 ML AMPUL NEB SCH (07:50)
[2018-08-20] MEDS: BUDESONIDE NEB 0.5 MG/2 ML AMPUL NEB SCH (07:50)
[2018-08-20] MEDS ORDERED: POLYETHYLENE GLYCOL 3350 POWDER 17 GM/1 PACKET PO PRN (08:49)
[2018-08-20] MEDS ORDERED: FUROSEMIDE INJ/PF 20 MG/2 ML SDV IV ONE (09:22)
[2018-08-20] MEDS: DOCUSATE SODIUM 100 MG CAPSULE PO SCH (10:01)
[2018-08-20] MEDS: ESCITALOPRAM OXALATE 10 MG TABLET PO SCH (10:02)
[2018-08-20] MEDS: GABAPENTIN 100 MG CAPSULE PO SCH ×2 (10:02→14:15)
[2018-08-20] MEDS: FENOFIBRATE NANOCRYSTALLIZED 48 MG TABLET PO SCH (10:03)
--- NOTE | 2018-08-20 12:32 | PDOC PROGRESS REPORT ---
Subjective Progress Note for:: 08/17/18 Subjective:: improving Reason For Visit: SHOCK Physical Exam Vital Signs: Temp Pulse Resp BP Pulse Ox 98.3 F 103 H 17 99/68 L 93 08/17/18 06:34 08/17/18 06:34 08/17/18 06:34 08/17/18 06:34 08/17/18 06:34 Intake & Output 08/16/18 08/17/18 08/18/18 06:59 06:59 06:59 Intake Total 100 100 Output Total 2049 500 Balance -1950 -400 Weight 88.5 kg 86.3 kg General appearance: PRESENT: no acute distress, disheveled, obese Head exam: PRESENT: atraumatic, normocephalic Eye exam: PRESENT: conjunctiva pale. ABSENT: nystagmus, periorbital swelling Mouth exam: PRESENT: dry mucosa, neck supple, tongue midline Neck exam: ABSENT: carotid bruit, JVD, lymphadenopathy, thyromegaly, tracheal deviation, tracheostomy Respiratory exam: PRESENT: decreased breath sounds, prolonged expiratory phas, rhonchi, unlabored. ABSENT: retraction, tachypnea Cardiovascular exam: PRESENT: RRR, +S1, +S2 Pulses: PRESENT: normal radial pulses GI/Abdominal exam: PRESENT: soft. ABSENT: tenderness Extremities exam: PRESENT: calf tenderness, clubbing, pedal edema. ABSENT: joint swelling Musculoskeletal exam: PRESENT: deformity, dislocation Neurological exam: PRESENT: alert, awake Psychiatric exam: PRESENT: normal mood Skin exam: PRESENT: dry, warm Results Laboratory Results: 08/17/18 05:50 08/17/18 05:50 08/16/18 08/16/18 08/17/18 11:21 11:21 00:35 WBC RBC Hgb Hct MCV MCH MCHC RDW Plt Count Seg Neutrophils % Lymphocytes % Monocytes % Eosinophils % Basophils % Absolute Neutrophils Absolute Lymphocytes Absolute Monocytes Absolute Eosinophils Absolute Basophils Carbonic Acid HCO3/H2CO3 Ratio ABG pH ABG pCO2 ABG pO2 ABG HCO3 ABG O2 Saturation ABG Base Excess FiO2 Sodium Potassium Chloride Carbon Dioxide Anion Gap BUN Creatinine Est GFR ( Amer) Est GFR (Non-Af Amer) Glucose Calcium Magnesium Total Bilirubin AST ALT Alkaline Phosphatase Total Protein Albumin Lipase 112.7 Urine Color YELLOW Urine Appearance CLEAR Urine pH 6.0 Ur Specific [place] 1.017 Urine Protein NEGATIVE Urine Glucose (UA) NEGATIVE Urine Ketones NEGATIVE Urine Blood NEGATIVE Urine Nitrite NEGATIVE Ur Leukocyte Esterase NEGATIVE Urine WBC (Auto) 2 Urine RBC (Auto) 0 Stool for White Cells NO WBCs SEEN 08/17/18 08/17/18 08/17/18 05:50 05:50 06:25 WBC 12.9 H RBC 4.65 Hgb 12.5 Hct 37.1 MCV 80 MCH 26.9 L MCHC 33.7 RDW 14.1 H Plt Count 175 Seg Neutrophils % 62.6 Lymphocytes % 24.1 Monocytes % 10.5 Eosinophils % 2.2 Basophils % 0.6 Absolute Neutrophils 8.1 Absolute Lymphocytes 3.1 Absolute Monocytes 1.3 Absolute Eosinophils 0.3 Absolute Basophils 0.1 Carbonic Acid 1.06 HCO3/H2CO3 Ratio 22:1 ABG pH 7.44 ABG pCO2 35.1 ABG pO2 70.4 L ABG HCO3 23.4 ABG O2 Saturation 94.9 ABG Base Excess -0.2 FiO2 21% Sodium 142.9 Potassium 3.7 Chloride 107 Carbon Dioxide 26 Anion Gap 10 BUN 21 H Creatinine 0.78 Est GFR ( Amer) > 60 Est GFR (Non-Af Amer) > 60 Glucose 69 L Calcium 7.5 L Magnesium 1.7 Total Bilirubin 0.4 AST 60 H ALT 71 H Alkaline Phosphatase 76 Total Protein 5.8 L Albumin 3.0 L Lipase Urine Color Urine Appearance Urine pH Ur Specific [place] Urine Protein Urine Glucose (UA) Urine Ketones Urine Blood Urine Nitrite Ur Leukocyte Esterase Urine WBC (Auto) Urine RBC (Auto) Stool for White Cells 08/15/18 05:35 Creatine Kinase < 20 L Impressions: Abdomen/Pelvis CT 08/13/18 23:25 IMPRESSION: Nonspecific nonenlarged as well as mildly enlarged lymph nodes of the mediastinum, as above. Consider short-term follow-up to ensure stability and/or resolution. Fatty infiltrative change to the liver. Sigmoid diverticulosis. No CT evidence for diverticulitis TECHNICAL DOCUMENTATION: Quality ID # [id number]: Final reports with documentation of one or more dose reduction techniques (e.g., Automated exposure control, adjustment of the mA and/or kV according to patient size, use of iterative reconstruction technique) 2010 [employer]- All Rights Reserved Chest CT 08/13/18 23:26 IMPRESSION: Nonspecific nonenlarged as well as mildly enlarged lymph nodes of the mediastinum, as above. Consider short-term follow-up to ensure stability and/or resolution. Fatty infiltrative change to the liver. Sigmoid diverticulosis. No CT evidence for diverticulitis TECHNICAL DOCUMENTATION: Quality ID # [id number]: Final reports with documentation of one or more dose reduction techniques (e.g., Automated exposure control, adjustment of the mA and/or kV according to patient size, use of iterative reconstruction technique) 2010 [employer]- All Rights Reserved Chest X-Ray 08/17/18 06:00 IMPRESSION: No significant interval change. No acute findings. Other findings as noted above Assessment & Plan - Diagnosis (1) Acute on chronic respiratory failure with hypoxia Is this a current diagnosis for this admission?: Yes Plan: BiPAP as tolerated (2) COPD with acute exacerbation Is this a current diagnosis for this admission?: Yes (3) Hypertension Qualifiers: Hypertension type: essential hypertension Qualified Code(s): I10 - Essential (primary) hypertension Is this a current diagnosis for this admission?: No (4) Septic shock Is this a current diagnosis for this admission?: Yes
[2018-08-20 12:56] VITALS: BP 133/61
--- NOTE | 2018-08-20 18:24 | PDOC DISCHARGE SUMMARY ---
General - Admit/Disc Date/PCP Admission Date/Primary Care Provider: 08/14/18 02:11 Discharge Date: 08/20/18 - Discharge Diagnosis (1) Diarrhea Is this a current diagnosis for this admission?: Yes (2) Hypotension Is this a current diagnosis for this admission?: Yes (3) COPD with acute exacerbation Is this a current diagnosis for this admission?: Yes (4) Acute kidney injury Is this a current diagnosis for this admission?: Yes (5) Leukocytosis Is this a current diagnosis for this admission?: Yes - Additional Information Prescriptions: Budesonide/Formoterol Fumarate [Symbicort Hfa 80-4.5 Mcg Inhaler 6.9 gm] 1 puff IH Q12H #1 inhaler Hydrochlorothiazide [Hydrodiuril 12.5 mg Tablet] 12.5 mg PO QAM #30 capsule Home Medications: Acetaminophen with Codeine [Tylenol #3 Tablet] 1 each PO Q4HP PRN #20 tablet 07/14 Ondansetron [Zofran Odt 4 mg Tablet] 1 - 2 tab PO Q4H PRN #15 tab.rapdis Albuterol Sulfate [Ventolin Hfa 8 gm Mdi (1 Mdi/ER Disp)] 2 puff IH Q6H PRN Cholecalciferol (Vitamin D3) [Vitamin D3] 50,000 unit PO Q7D 08/14/18 Fenofibrate Nanocrystallized [Tricor 48 mg Tablet] 48 mg PO DAILY 08/14/18 Gabapentin [Neurontin 100 mg Capsule] 200 mg PO TID 08/14/18 Montelukast Sodium [Singulair 10 mg Tablet] 10 mg PO DAILY 08/14/18 Omeprazole 40 mg PO DAILY 08/14/18 Rosuvastatin Calcium [Crestor 10 mg Tablet] 10 mg PO DAILY 08/14/18 Escitalopram Oxalate [Lexapro 10 mg Tablet] 10 mg PO DAILY 08/17/18 Budesonide/Formoterol Fumarate [Symbicort Hfa 80-4.5 Mcg Inhaler 6.9 gm] 1 puff IH Q12H #1 inhaler 08/20/18 Hydrochlorothiazide [Hydrodiuril 12.5 mg Tablet] 12.5 mg PO QAM #30 capsule History of Present Illness History of Present Illness: Admitting hospitalist's H&P: Ms. Samuel is a 73 year old female with medical history remarkable for hypertension, COPD not on home oxygen, patient comes complaining of generalized weakness. Patient has been in our facility twice on October 05 and October 06 complaining of profuse diarrhea, nausea, vomiting, generalized weakness,at that time the patient has been sent home with medications but since then she has not been feeling back to her baseline. Diarrhea has resolved but he still complains of worsening cough with clear sputum, wheezing on and off and unfortunately the patient is a smoker of 1 pack/day. Also feels dizzy and weak. Complains that every time she coughs she has neck pain and headaches. Patient tells me that yesterday night she passed out and lay on the floor all night she was able to external by herself with no evident trauma and was laying on her bed since then until about 4 PM and her [id number] found her a little bit of, very weak, apparently she has not changed her clothes for the last 2 or 3 days, ill looking and brought her to the ED. Patient just moved from [place] on July 02. Hospital Course Hospital Course: In the ER, she was noted to have a pulse of 109, respiratory 23, temperature 103 rectal. She had also abnormal laboratories with increased white blood cells 19.9 and lactate 4. Her chest x-ray and urinalysis were negative for acute infection. 2 L of IV fluids started along with broad spectrum antibiotics. At some point her blood pressure decreased severely to the systolic in the 60s. She was given IV fluid boluses but did not require and was not started on pressors. CT chest abdomen and pelvis was done and was remarkable only for nodules in the subcarinal region which are chronic and stable compared to her CT results from [place] earlier this year. Patient's hospital course was prolonged due to her recurrent diarrhea. This resolved for a few days but recurred hence she was further worked up as she said it has been going on for 3 weeks. (1) Diarrhea Improved. C. diff was negative and was tested twice. Stool culture came back negative as well. Her diarrhea did significantly improve. Patient's actual stools were examined in person by this provider in the toilet bowl and they appeared well formed but patient reports she has loose stools in between. Patient had recurring diarrhea. She does say she eats lots of fruits and products from and [place] and reported having passed a "worm/parasite" several years before. Another differential causing her recurrence diarrhea is acquired lactase deficiency which is not uncommon to occur in adult patients who develop viral or bacterial gastroenteritis. Sample was also sent out for ova and parasite testing which is a "send out test ". However, apparently this will be resulted later next week and will have to be forwarded to patient's new PCP. She was also given an outpatient appt with GI. Requested records from patient's GI and reviewed recent EGD and colonoscopy results done on March 25, 2018 which were unremarkable aside from gastritis, internal hemorrhoids and diverticulosis. (2) Hypotension Resolved with IV fluids on admission. Possibly from volume depletion from profuse diarrhea. (3) COPD with acute exacerbation Resolved. Patient received Levaquin and Zosyn initially. She was also on IV steroids. (4) Acute kidney injury Resolved with IV fluids. Likely pre-renal from dehydration secondary to GI losses. Physical Exam Vital Signs: Temp Pulse Resp BP Pulse Ox 97.6 F 98 16 133/61 H 94 08/20/18 08:00 08/20/18 08:00 08/20/18 08:00 08/20/18 08:00 08/20/18 08:00 Intake & Output 08/19/18 08/20/18 08/21/18 06:59 06:59 06:59 Intake Total 3264 2992 Output Total 650 800 Balance 2614 2192 Weight 197 lb 15.602 oz 186 lb 1.122 oz General appearance: PRESENT: no acute distress, well-developed, well-nourished Head exam: PRESENT: atraumatic, normocephalic Eye exam: PRESENT: conjunctiva pink, EOMI, PERRLA. ABSENT: scleral icterus Ear exam: PRESENT: normal external ear exam Mouth exam: PRESENT: moist, tongue midline Neck exam: ABSENT: carotid bruit, JVD, lymphadenopathy, thyromegaly Respiratory exam: PRESENT: clear to auscultation ladarius. ABSENT: rales, rhonchi, wheezes Cardiovascular exam: PRESENT: RRR. ABSENT: diastolic murmur, rubs, systolic murmur Pulses: PRESENT: normal dorsalis pedis pul Vascular exam: PRESENT: normal capillary refill GI/Abdominal exam: PRESENT: normal bowel sounds, soft. ABSENT: distended, guarding, mass, organolmegaly, rebound, tenderness Rectal exam: PRESENT: deferred Neurological exam: PRESENT: alert, awake, oriented to person, oriented to place , oriented to time, oriented to situation, CN II-XII grossly intact. ABSENT: motor sensory deficit Results Laboratory Results: 08/19/18 04:34 08/19/18 04:34 08/19/18 21:15 Urine Color YELLOW Urine Appearance CLEAR Urine pH 5.0 Ur Specific [place] 1.015 Urine Protein NEGATIVE Urine Glucose (UA) NEGATIVE Urine Ketones NEGATIVE Urine Blood NEGATIVE Urine Nitrite NEGATIVE Ur Leukocyte Esterase NEGATIVE Urine WBC (Auto) 0 Urine RBC (Auto) 0 08/15/18 05:35 Creatine Kinase < 20 L Impressions: Abdomen/Pelvis CT 08/13/18 23:25 IMPRESSION: Nonspecific nonenlarged as well as mildly enlarged lymph nodes of the mediastinum, as above. Consider short-term follow-up to ensure stability and/or resolution. Fatty infiltrative change to the liver. Sigmoid diverticulosis. No CT evidence for diverticulitis TECHNICAL DOCUMENTATION: Quality ID # 436: Final reports with documentation of one or more dose reduction techniques (e.g., Automated exposure control, adjustment of the mA and/or kV according to patient size, use of iterative reconstruction technique) 2010 [employer]- All Rights Reserved Chest CT 08/13/18 23:26 IMPRESSION: Nonspecific nonenlarged as well as mildly enlarged lymph nodes of the mediastinum, as above. Consider short-term follow-up to ensure stability and/or resolution. Fatty infiltrative change to the liver. Sigmoid diverticulosis. No CT evidence for diverticulitis TECHNICAL DOCUMENTATION: Quality ID # 436: Final reports with documentation of one or more dose reduction techniques (e.g., Automated exposure control, adjustment of the mA and/or kV according to patient size, use of iterative reconstruction technique) 2010 [employer]- All Rights Reserved Chest X-Ray 08/17/18 06:00 IMPRESSION: No significant interval change. No acute findings. Other findings as noted above Qualifiers - * PATIENT BEING DISCHARGED WITH ANY OF THE FOLLOWING DIAGNOSIS: No
== END 2018-08-20 15:55 | disposition home or self-care (01) | DRG 191 ==
LOC: ER 17:31 → EH 08-14 02:11 → ICU 08-14 03:43 → 4N 08-16 16:57
PROVIDERS: ADMIT Internal Medicine; ATTEND Internal Medicine
PROC: 02HV33Z Insertion of Infusion Device into Superior Vena Cava, Percutaneous Approach (ICD-10-PCS; principal; 2018-08-14)
DX: J44.1 Chronic obstructive pulmonary disease with (acute) exacerbation (principal); N17.9 Acute kidney failure, unspecified; E86.0 Dehydration; I95.9 Hypotension, unspecified; I10 Essential (primary) hypertension; R19.7 Diarrhea, unspecified; E78.5 Hyperlipidemia, unspecified; K21.9 Gastro-esophageal reflux disease without esophagitis; M19.90 Unspecified osteoarthritis, unspecified site; F41.1 Generalized anxiety disorder; F32.9 Major depressive disorder, single episode, unspecified; Z90.710 Acquired absence of both cervix and uterus; F17.210 Nicotine dependence, cigarettes, uncomplicated; Z79.899 Other long term (current) drug therapy; Z88.0 Allergy status to penicillin; Z88.1 Allergy status to other antibiotic agents; Z91.041 Radiographic dye allergy status; Z96.612 Presence of left artificial shoulder joint; Z96.611 Presence of right artificial shoulder joint
CPT/HCPCS: 36415; 36600; 51701; 71045; 71260; 74177; 80053; 80307; 81001; 82550; 82803; 83036; 83605; 83690; 83735; 84100; 84443; 84484; 85025; 85610; 85730; 87040; 87045; 87070; 87086; 87177; 87205; 87493; 87804; 89055; 93005; 93010; 94640; 94667; 96361; 96365; 96366; 96367; 96368; 96375; 99291; 99292; C1751; G8978-GP; G8979-GP; J0692; J1200; J1642; J1644; J1940; J1956; J2543; J2765; J2920; J2930; J3370; J3490; J7030; J7060; J7120; J7620; S0164

== ENCOUNTER 2018-09-14 10:10 | Day surgery (SDC) | payer MEDICARE ==
[2018-09-14] MEDS ORDERED: ALBUTEROL SULFATE 0.083% NEB 2.5 MG/3 ML AMPUL NEB ONE ×2 (11:00→12:08)
[2018-09-14 11:05] LABS: HEMATOCRIT 42.7 % (36.0-47.0); HEMOGLOBIN 14.2 g/dL (12.0-15.5); MEAN CORPUSCULAR HEMOGLOBIN 27.2 pg (27.0-33.4); MEAN CORPUSCULAR HGB CONC 33.2 g/dL (32.0-36.0); MEAN CORPUSCULAR VOLUME 82 fl (80-97); PLATELET COUNT 227 10^3/uL (150-450); RED BLOOD COUNT 5.21 10^6/uL (3.72-5.28); RED CELL DISTRIBUTION WIDTH 14.6 % (11.5-14.0); WHITE BLOOD COUNT 7.7 10^3/uL (4.0-10.5)
[2018-09-14 11:22] LABS: ANION GAP 9 (5-19); BLOOD UREA NITROGEN 20 mg/dL (7-20); CALCIUM 9.6 mg/dL (8.4-10.2); CARBON DIOXIDE 24 mmol/L (22-30); CHLORIDE 107 mmol/L (98-107); GLUCOSE 99 mg/dL (75-110); POTASSIUM 4.6 mmol/L (3.6-5.0); SODIUM 140.4 mmol/L (137-145)
[2018-09-14] MEDS ORDERED: PROPOFOL INJ 200 MG/20 ML VIAL IV ONE (11:24)
[2018-09-14] MEDS ORDERED: ACETAMINOPHEN 325 MG TABLET ONE (12:33)
[2018-09-14] MEDS ORDERED: ACETAMINOPHEN 325 MG TABLET PO ONE (12:39)
[2018-09-14] MEDS ORDERED: SIMETHICONE 80 MG TAB.CHEW PO PRN (13:00)
[2018-09-14] MEDS ORDERED: PROMETHAZINE HCL INJ 25 MG/1 ML VIAL INJ PRN (13:00)
[2018-09-14] MEDS ORDERED: ACETAMINOPHEN 325 MG TABLET PO PRN (13:00)
[2018-09-14 13:22] VITALS: BP 117/62
[2018-09-14] MEDS ORDERED: PHENYLEPHRINE HCL INJ/PF 10 MG/1 ML SDV ONE (13:40)
--- NOTE | 2018-09-14 16:32 | Operative Report ---
Operative Report DATE OF SURGERY: 09/14/18 Operative Report: The risks, benefits and alternatives of the procedure including the risk of bleeding, perforation requiring surgery are explained to the patient in detail and informed consent is obtained. The patient is brought back to the operating room and placed in the left, lateral decubital position. Timeout was called. Propofol medication is administered. A rectal examination is done which did not reveal any masses, tears or fissures. An Olympus videoscope was introduced into the patient's rectum. The scope was then carefully advanced all the way to the cecum. The cecum was identified by the usual anatomical landmarks of the ileocecal valve as well as the appendiceal office. Photodocumentation is obtained. The scope was then sequentially pulled back via the rest segments of the colon including the ascending colon, hepatic flexure, transverse colon, splenic flexure, descending colon and finally into the rectosigmoid portions of the colon. Retroflexion maneuver is performed. PREOPERATIVE DIAGNOSIS: Change of bowel habits POSTOPERATIVE DIAGNOSIS: Right-sided colon Inflammation status post biopsy without lymphocytic, microscopic, collagenous colitis. Ascending colon polyp was removed and retrieved with snare polypectomy technique. Diverticulosis. Internal hemorrhoids OPERATION: Colonoscopy with snare polypectomy. Colonoscopy with biopsy SURGEON: NIKHIL YEE ANESTHESIA: LMAC TISSUE REMOVED OR ALTERED: As noted above. COMPLICATIONS: None. ESTIMATED BLOOD LOSS: None. INTRAOPERATIVE FINDINGS: As noted above. PROCEDURE: Patient tolerated the procedure well. No immediate postprocedure complications are noted. Discharged in good condition. Discharge date 09/14/2018. Discharge diet: Regular. Discharge activity: Regular. 2-3-week follow-up to discuss findings. Patient is instructed to call the office or proceed to the emergency room should there be any further problems or questions. I will wait on the pathology. 3-5-year surveillance colonoscopy.
== END 2018-09-14 13:15 | disposition home or self-care (01) ==
LOC: OROUT 10:10
PROVIDERS: ATTEND Internal Medicine Gastroenterology
DX: K52.9 Noninfective gastroenteritis and colitis, unspecified (principal); K57.30 Diverticulosis of large intestine without perforation or abscess without bleeding; D12.2 Benign neoplasm of ascending colon; K64.8 Other hemorrhoids; E78.5 Hyperlipidemia, unspecified; J45.909 Unspecified asthma, uncomplicated; I10 Essential (primary) hypertension; M19.90 Unspecified osteoarthritis, unspecified site; F17.210 Nicotine dependence, cigarettes, uncomplicated; J44.9 Chronic obstructive pulmonary disease, unspecified; E11.9 Type 2 diabetes mellitus without complications; Z79.51 Long term (current) use of inhaled steroids; Z79.899 Other long term (current) drug therapy; Z79.891 Long term (current) use of opiate analgesic; Z86.010 Personal history of colon polyps; Z88.0 Allergy status to penicillin; Z88.2 Allergy status to sulfonamides; Z91.041 Radiographic dye allergy status
CPT/HCPCS: 45380; 45385; 36415; 85027; 80048; 88305 ×2; A9270 ×2; J2370; J2704; 811

== ENCOUNTER 2019-07-05 06:51 | Day surgery (SDC) | payer MEDICARE ==
[~2019-07-05 06:51] MED LIST: FENTANYL CITRATE INJ/PF 100 MCG/2 ML AMPUL ONE; KETOROLAC TROMETHAMINE 0.45% 4 DROP/0.4 ML DROPERETTE OD PRN; MIDAZOLAM 2 MG/2 ML INJ ONE
[2019-07-05] MEDS: BESIFLOXACIN HCL 0.6% OPH SUSP 5 ML BOTTLE OD PRN ×4 (06:58→07:58)
[2019-07-05] MEDS: CYCLOPENTOLATE 0.2%/PHENYLEPHRINE 1% OPH SOLN 2 ML OD PRN ×3 (06:58→07:18)
[2019-07-05] MEDS: TROPICAMIDE 1% OPH SOLN 15 ML OD PRN ×3 (06:58→07:18)
[2019-07-05] MEDS: TETRACAINE HCL 0.5% OPH SOLN 4 ML OD PRN ×3 (06:59→07:40)
[2019-07-05] MEDS ORDERED: EPINEPHRINE INJ/PF 1 MG/1 ML AMPULE ONE (07:15)
[2019-07-05] MEDS ORDERED: LIDOCAINE 1% INJ-PF (10 MG/ML) 30 ML SDV ONE (07:15)
[2019-07-05] MEDS ORDERED: CHONDR SU A NA/HYALUR INTRAOC KIT (SURGICARE) ONE (07:15)
[2019-07-05] MEDS ORDERED: ALBUTEROL SULFATE 0.083% NEB 2.5 MG/3 ML AMPUL NEB ONE (07:18)
[2019-07-05] MEDS: DORZOLAMIDE HCL 2%/TIMOLOL MALEAT 0.5% OPH SOLN 10 ML OD PRN ×2 (07:58)
[2019-07-05] MEDS: TOBRAMYCIN SULFATE/DEXAMETH OPH OINTMENT 3.5 GM ONE ×2 (07:58)
== END 2019-07-05 08:44 | disposition home or self-care (01) ==
LOC: SC 06:51
PROVIDERS: ATTEND Ophthalmology
DX: H25.11 Age-related nuclear cataract, right eye (principal); J44.9 Chronic obstructive pulmonary disease, unspecified; I10 Essential (primary) hypertension; K21.9 Gastro-esophageal reflux disease without esophagitis; E07.9 Disorder of thyroid, unspecified; E78.00 Pure hypercholesterolemia, unspecified; M79.2 Neuralgia and neuritis, unspecified; F17.210 Nicotine dependence, cigarettes, uncomplicated; Z86.14 Personal history of Methicillin resistant Staphylococcus aureus infection; Z79.51 Long term (current) use of inhaled steroids; Z79.899 Other long term (current) drug therapy
CPT/HCPCS: 66984; 00142; V2632; J2250; J3490 ×4; A9270 ×2; J0171; J3010; 142

== ENCOUNTER 2019-07-19 08:28 | Day surgery (SDC) | payer MEDICARE ==
[~2019-07-19 08:28] MED LIST changes: +CHONDR SU A NA/HYALUR INTRAOC KIT (SURGICARE) ONE; +DORZOLAMIDE HCL 2%/TIMOLOL MALEAT 0.5% OPH SOLN 10 ML OS PRN; +EPINEPHRINE INJ/PF 1 MG/1 ML AMPULE ONE; -FENTANYL CITRATE INJ/PF 100 MCG/2 ML AMPUL ONE; -KETOROLAC TROMETHAMINE 0.45% 4 DROP/0.4 ML DROPERETTE OD PRN; +KETOROLAC TROMETHAMINE 0.45% 4 DROP/0.4 ML DROPERETTE OS PRN; +LIDOCAINE 1% INJ-PF (10 MG/ML) 30 ML SDV ONE; -MIDAZOLAM 2 MG/2 ML INJ ONE; +TOBRAMYCIN SULFATE/DEXAMETH OPH OINTMENT 3.5 GM ONE
[2019-07-19] MEDS: CYCLOPENTOLATE 0.2%/PHENYLEPHRINE 1% OPH SOLN 2 ML OS PRN ×3 (08:45→09:05)
[2019-07-19] MEDS: TROPICAMIDE 1% OPH SOLN 15 ML OS PRN ×3 (08:45→09:05)
[2019-07-19] MEDS: TETRACAINE HCL 0.5% OPH SOLN 4 ML OS PRN ×3 (08:45→09:11)
[2019-07-19] MEDS: BESIFLOXACIN HCL 0.6% OPH SUSP 5 ML BOTTLE OS PRN ×3 (08:45→09:31)
[2019-07-19] MEDS ORDERED: MIDAZOLAM 2 MG/2 ML INJ ONE (08:54)
[2019-07-19] MEDS ORDERED: FENTANYL CITRATE INJ/PF 100 MCG/2 ML AMPUL ONE (08:55)
[2019-07-19] MEDS ORDERED: ALBUTEROL SULFATE 0.083% NEB 2.5 MG/3 ML AMPUL NEB ONE (08:57)
== END 2019-07-19 10:07 | disposition home or self-care (01) ==
LOC: SC 08:28
PROVIDERS: ATTEND Ophthalmology
DX: H25.12 Age-related nuclear cataract, left eye (principal); Z98.41 Cataract extraction status, right eye; F17.210 Nicotine dependence, cigarettes, uncomplicated; I10 Essential (primary) hypertension; E78.00 Pure hypercholesterolemia, unspecified; Z79.899 Other long term (current) drug therapy
CPT/HCPCS: 66984; 00142; V2632; J2250; J3490 ×3; A9270 ×3; J0171; J3010; 142

== ENCOUNTER 2019-12-22 23:22 | Emergency (ER) | payer MEDICARE ==
[2019-12-22] MEDS ORDERED: ALBUTEROL SULFATE HFA (90 MCG/PUFF) 8 GM MDI (1 MDI/ER DISP) IH ONE (23:56)
[2019-12-22] MEDS ORDERED: MAGNESIUM SULFATE/D5W 1 GM/100 ML RTUPB IV ONE (23:59)
--- NOTE | 2019-12-23 00:02 | ER Document Report ---
ED Respiratory Problem - General Stated Complaint: SHORTNESS OF BREATH,SWOLLEN FACE AND NECK Time Seen by Provider: 12/22/19 23:35 Primary Care Provider: ORESTES TORRES PA [Primary Care Provider] - Follow up as needed Notes: Patient is a 74-year-old female that comes to the emergency department for chief complaint of shortness of breath, cough, wheezing, and generalized body aches, chills, she denies fever. And borderline swelling in both legs. Symptoms have been going on for 2 weeks. She states she had just come back from [place] when symptoms started, she traveled by car. She continues to smoke, has COPD, she is not on home oxygen. She was seen by her primary care provider within the past week and started on doxycycline, she has not had significant change in her symptoms. Patient has a history of hypertension, hyperlipidemia, and she states she was told she had "2 spots on the lungs". She denies history of HI or stents, diabetes, or recent hospitalization. TRAVEL OUTSIDE OF THE [place] IN LAST 30 DAYS: No - Related Data Allergies/Adverse Reactions: denosumab [From ProlOpenX] Allergy (Verified 07/05/19 07:16) Penicillins Allergy (Verified 07/05/19 07:13) Generalized rash Sulfa (Sulfonamide Antibiotics) Allergy (Verified 07/05/19 07:13) Tetanus Vaccines and Toxoid Allergy (Verified 07/05/19 07:16) swelling at site Past Medical History - General Information source: Patient - Social History Smoking Status: Former Smoker Frequency of alcohol use: None Drug Abuse: None Lives with: Family Family History: Reviewed & Not Pertinent - Past Medical History Cardiac Medical History: Reports: Hx Hypercholesterolemia, Hx Hypertension Denies: Hx Heart Attack Pulmonary Medical History: Reports: Hx Asthma, Hx COPD, Hx Pneumonia, Hx Respiratory Failure Neurological Medical History: Denies: Hx Cerebrovascular Accident, Hx Seizures Renal/ Medical History: Denies: Hx Peritoneal Dialysis GI Medical History: Reports: Hx Gastroesophageal Reflux Disease. Denies: Hx Hepatitis, Hx Hiatal Hernia, Hx Ulcer Musculoskeletal Medical History: Reports Hx Arthritis Psychiatric Medical History: Reports: Hx Depression Infectious Medical History: Denies: Hx Hepatitis, Hx HIV Past Surgical History: Reports: Hx Section, Hx Genitourinary Surgery - bladder sling, Hx Hysterectomy, Hx Orthopedic Surgery - Bilateral shoulder replacement, Other - Bladder sling. Denies: Hx Mastectomy, Hx Open Heart Surgery, Hx Pacemaker - Immunizations Hx Pneumococcal Vaccination: 09/27/15 Review of Systems - Review of Systems Constitutional: See HPI EENT: See HPI Cardiovascular: See HPI Respiratory: See HPI Gastrointestinal: No symptoms reported Genitourinary: No symptoms reported Female Genitourinary: No symptoms reported Musculoskeletal: No symptoms reported Skin: No symptoms reported Hematologic/Lymphatic: No symptoms reported Neurological/Psychological: No symptoms reported Physical Exam - Vital signs Vitals: Temp Pulse Resp BP Pulse Ox 99.3 F 78 21 H 115/64 97 12/23/19 00:12/23/19 00:27 12/23/19 00:27 12/23/19 00:12/23/19 00:27 - Notes Notes: GENERAL: Alert, interacts well. No acute distress. Talkative and well-appearing HEAD: Normocephalic, atraumatic. EYES: Pupils equal, round, and reactive to light. Extraocular movements intact. ENT: Oral mucosa moist, tongue midline. Oropharynx unremarkable. Airway patent. LUNGS: Faint expiratory wheezes throughout but good breath sounds are still heard. No tachypnea or respiratory distress. Speaks in full sentences. HEART: Regular rate and rhythm. No murmur ABDOMEN: Soft, non-tender. Non-distended. EXTREMITIES: Moves all 4 extremities spontaneously. No edema, normal radial and dorsalis pedis pulses bilaterally. No cyanosis. BACK: no cervical, thoracic, lumbar midline tenderness. No saddle anesthesia, normal distal neurovascular exam. Moves all extremities in full range of motion. NEUROLOGICAL: Alert and oriented x3. Normal speech. Cranial nerves II through XII grossly intact. PSYCH: Normal affect, normal mood. SKIN: Warm, dry, normal turgor. No rashes or lesions noted. Course - Re-evaluation Re-evalutation: On initial evaluation patient does have some faint expiratory wheezes throughout but she speaks in full sentences, has no tachypnea, has no signs of distress. She is not hypoxic on room air. She was given albuterol puffs and 1 g of magnesium and on reevaluation wheezing resolved. On my reevaluation patient had no complaints. CBC unremarkable, chemistry unremarkable, troponin negative. D-dimer is positive, CTA will be performed because of recent travel and her symptoms along with elevated d-dimer. No edema of the lower extremities. CTA showing interstitial areas which could be chronic versus fluid versus pneumonitis. BNP is not elevated. Patient is already on doxycycline. No pulmonary embolism or concerning findings otherwise. Patient will be treated with steroids for COPD exacerbation, she will be tested for the coronavirus. I discussed details with patient. Patient very grateful, states she is ready to go home and comfortable in doing so. Patient ambulates without difficulty, has no hypoxia, work-up is reassuring, she will be discharged on prednisone with close follow-up and strict return precautions, provided with a CD for her close follow-up. Patient states appreciation and agreement. Stable and well- appearing at time of discharge. - Vital Signs Vital signs: Temp Pulse Resp BP Pulse Ox 98.3 F 81 17 121/77 98 12/23/19 05:16 12/23/19 05:16 12/23/19 05:16 12/23/19 05:16 12/23/19 05:16 - Laboratory Result Diagrams: 12/23/19 00:50 12/23/19 00:50 Laboratory results interpreted by me: 12/23/19 12/23/19 12/23/19 00:50 00:50 00:50 RBC 5.30 H D-Dimer 0.59 H Sodium 136.6 L BUN 21 H Est GFR (MDRD) Non-Af 57 L Ur Leukocyte Esterase 12/23/19 00:50 RBC D-Dimer Sodium BUN Est GFR (MDRD) Non-Af Ur Leukocyte Esterase TRACE H - EKG Interpretation by Me Additional EKG results interpreted by me: EKG shows sinus rhythm at a rate of 82, normal axis, no T wave inversions or ST segment changes in consecutive leads. A PVC is noted. QTC of 444. Otherwise unremarkable. Discharge - Discharge Clinical Impression: Wheezing, Cough, COPD exacerbation Condition: Stable Disposition: HOME, SELF-CARE Additional Instructions: Your work-up is reassuring, this is most likely a COPD exacerbation. Take prednisone as prescribed, complete doxycycline, follow-up closely with your primary care. Bring your CD to your provider for additional management. You have been tested for the coronavirus, you will be contacted with the results. Please perform isolation precautions until you receive your results and additional instructions. Come back if you are worse including spiking fevers, vomiting, difficulty breathing, chest pain, passing out, or any other concerning symptoms. Prescriptions: Prednisone [Deltasone 20 mg Tablet] 3 tab PO DAILY 5 Days tablet Referrals: ORESTES TORRES PA [Primary Care Provider] - Follow up as needed
--- NOTE | 2019-12-23 00:40 | RADIOLOGY REPORT (SQ) ---
EXAM DESCRIPTION: XR CHEST 1 VIEW COMPLETED DATE/TME: 12/22/2019 23:56 CLINICAL HISTORY: 74 years, Female, shortness of breath COMPARISON: X-ray chest 08/17/2018 NUMBER OF VIEWS: TECHNIQUE: LIMITATIONS: None. FINDINGS: There is possible emphysema. There is chronic interstitial pulmonary thickening, a finding that was also on the prior chest x-ray. No evidence of acute pulmonary infiltrate or pleural effusion. The heart and mediastinum are unremarkable. Pulmonary vascularity appears normal. There are atherosclerotic changes and tortuosity of the thoracic aorta. IMPRESSION: Possible emphysema. Chronic interstitial pulmonary thickening. copyright 2010 [employer]- All Rights Reserved
[2019-12-23] MEDS ORDERED: ALBUTEROL SULFATE HFA (90 MCG/PUFF) 8 GM MDI IH ONE (00:43)
[2019-12-23 01:22] LABS: VENOUS BLOOD BASE EXCESS 1.2 mmol/L; VENOUS BLOOD HCO3 26.7 mmol/L (20-32); VENOUS BLOOD PCO2 45.6 mmHg (35-63); VENOUS BLOOD PH 7.39 (7.30-7.42)
[2019-12-23 01:25] LABS: ABSOLUTE BASOPHILS # (AUTO) 0.1 10^3/uL (0.0-0.2); ABSOLUTE EOSINOPHILS # (AUTO) 0.3 10^3/uL (0.0-0.6); ABSOLUTE LYMPHOCYTES (AUTO) 3.1 10^3/uL (0.5-4.7); ABSOLUTE MONOCYTES (AUTO) 0.7 10^3/uL (0.1-1.4); ABSOLUTE NEUT (AUTO) 6.1 10^3/uL (1.7-8.2); BASOPHILS % (AUTO) 0.6 % (0-2); EOSINOPHILS % (AUTO) 2.7 % (0-6); HEMATOCRIT 43.5 % (36.0-47.0); HEMOGLOBIN 14.7 g/dL (12.0-15.5); LYMPHOCYTES % (AUTO) 30.1 % (13-45); MEAN CORPUSCULAR HEMOGLOBIN 27.7 pg (27.0-33.4); MEAN CORPUSCULAR HGB CONC 33.8 g/dL (32.0-36.0); MEAN CORPUSCULAR VOLUME 82 fl (80-97); MONOCYTES % (AUTO) 7.2 % (3-13); PLATELET COUNT 251 10^3/uL (150-450); SEGMENTED NEUTROPHILS % (AUTO) 59.4 % (42-78); TOTAL CELLS COUNTED % (AUTO) 100 %; WHITE BLOOD COUNT 10.3 10^3/uL (4.0-10.5)
[2019-12-23 01:32] LABS: APPEARANCE,URINE SLIGHTLY-CLOUDY; BILIRUBIN,URINE NEGATIVE (NEGATIVE); COLOR,URINE YELLOW; GLUCOSE, URINE NEGATIVE (NEGATIVE); KETONES,URINE NEGATIVE (NEGATIVE); LEUKOCYTE ESTERASE,URINE TRACE (NEGATIVE); NITRITE,URINE NEGATIVE (NEGATIVE); PROTEIN,URINE NEGATIVE (NEGATIVE); URINE SPECIFIC GRAVITY 1.013; UROBILINOGEN,URINE NEGATIVE mg/dL (<2.0)
[2019-12-23 01:40] LABS: ALBUMIN 4.3 g/dL (3.5-5.0); ALKALINE PHOSPHATASE 95 U/L (38-126); ANION GAP 8 (5-19); ASPARTATE AMINO TRANSFERASE 22 U/L (14-36); BILIRUBIN,TOTAL 0.3 mg/dL (0.2-1.3); BLOOD UREA NITROGEN 21 mg/dL (7-20); CALCIUM 9.8 mg/dL (8.4-10.2); CARBON DIOXIDE 28 mmol/L (22-30); CHLORIDE 101 mmol/L (98-107); GLUCOSE 91 mg/dL (75-110); TOTAL PROTEIN 7.4 g/dL (6.3-8.2)
[2019-12-23 01:45] LABS: A TYPE INFLUENZA AG NEGATIVE (NEGATIVE); B INFLUENZA AG NEGATIVE (NEGATIVE)
--- NOTE | 2019-12-23 03:37 | RADIOLOGY REPORT (SQ) ---
EXAM DESCRIPTION: CT CHEST ANGIOGRAPHY WITHOUT THEN WITH IV CONTRAST COMPLETED DATE/TME: 12/23/2019 01:42 CLINICAL HISTORY: 74 years Female, recent travel, SOB, elevated D-Dimer Comparison: CR, same day. Technique: IV contrast. Coronal and sagittal reformat. 3d reconstruction. This exam was performed according to our departmental dose-optimization program, which includes automated exposure control, adjustment of the mA and/or kV according to patient size and/or use of iterative reconstruction technique.[facility]: Dose Right [facility]: CareDose [facility]: Dose Right [facility]: Teradose 4D [facility]: Easy [employer] Online LIMITATIONS: None Findings: Mild interstitial markings. Differential diagnosis includes pulmonary edema, atypical pneumonitis, and chronic interstitial lung disease. Atherosclerotic vascular disease. Left total shoulder arthroplasty. Limitation: Leads/hardware/artifact. Small hiatal hernia. Hepatic steatosis. Colonic diverticulosis. No pulmonary embolus. No right ventricular strain. Clear lungs. Inferior neck, axillae, mediastinum, airway, lymphatics, heart, vasculature, upper abdomen, and musculoskeleton appear otherwise unremarkable. Impression: Mild interstitial markings. Differential diagnosis includes pulmonary edema, atypical pneumonitis, and chronic interstitial lung disease.
[2019-12-23] MEDS ORDERED: METHYLPREDNISOLONE INJ 125 MG/2 ML SDV IV ONE (03:47)
[2019-12-23 05:18] VITALS: BP 121/77
--- NOTE | 2019-12-23 10:05 | EKG REPORT ---
SEVERITY:- OTHERWISE NORMAL ECG - SINUS RHYTHM VENTRICULAR PREMATURE COMPLEX : Confirmed by: Ramon Connell MD 23-Dec-2019 10:05:14
== END 2019-12-23 05:18 | disposition home or self-care (01) ==
LOC: ER 23:22
DX: J44.1 Chronic obstructive pulmonary disease with (acute) exacerbation (principal); R06.2 Wheezing; R05 Cough; R06.02 Shortness of breath; R22.0 Localized swelling, mass and lump, head; R22.1 Localized swelling, mass and lump, neck; M79.10 Myalgia, unspecified site; M79.89 Other specified soft tissue disorders; F17.200 Nicotine dependence, unspecified, uncomplicated; Z88.0 Allergy status to penicillin; Z88.2 Allergy status to sulfonamides; Z88.8 Allergy status to other drugs, medicaments and biological substances; Z88.7 Allergy status to serum and vaccine; I10 Essential (primary) hypertension; Z20.828 Contact with and (suspected) exposure to other viral communicable diseases
CPT/HCPCS: 93005; 99285; 96375; 96365; 36415; 87040; 87086; 85025; 87635; 87088; 80053; 81001; 84484; 87186; 85379; 82803; 87804; 83880; 71045; 71275; 93010; J2930; J3475; A9270; J3490

== ENCOUNTER 2019-12-30 14:31 | Emergency (ER) | payer MEDICARE ==
[2019-12-30] MEDS ORDERED: NORMAL SALINE 1000 ML 1,000 ML IV ONE ×2 (15:05→17:31)
--- NOTE | 2019-12-30 15:11 | ER Document Report ---
ED General - General Chief Complaint: Shortness Of Breath Stated Complaint: SHORTNESS OF BREATH Primary Care Provider: ORESTES TORRES PA [Primary Care Provider] - Follow up as needed Notes: Patient is a 74-year-old female with a past medical history of COPD and hypertension who presents to the emergency department with a chief complaint of ongoing cough and shortness of breath. The patient was seen here at the end of November and was worked up for a potential coronavirus infection. Her subsequent testing came back negative. She has been quarantined at home. She states after her discharge from here with a diagnosis of COPD exacerbation she was called and advised that she had a urinary tract infection, growth in the urine culture. The only oral antibiotic that it was sensitive to was Macrobid. The patient reports that her pharmacist advised she might have a bad reaction to this but it was noted this was only the only oral antibiotic that showed sensitivities. Patient reports she tried to take that medicine yesterday and shortly after taking it began feeling ill. She admits to diarrhea, shaking, foggy headed thoughts, generalized pain along with her ongoing cough and shortness of breath. She states that she has a primary care doctor in [place] and that she does take medicines for COPD. She reports that she has not taken any medicine today because she did not feel well. She denies any urinary symptoms. Denies chest pain. No abdominal pain. No fever. No new sick contacts or recent travel. TRAVEL OUTSIDE OF THE [place] IN LAST 30 DAYS: No - Related Data Allergies/Adverse Reactions: denosumab [From [employer]] Allergy (Verified 07/05/19 07:16) Penicillins Allergy (Verified 07/05/19 07:13) Generalized rash Sulfa (Sulfonamide Antibiotics) Allergy (Verified 07/05/19 07:13) Tetanus Vaccines and Toxoid Allergy (Verified 07/05/19 07:16) swelling at site Past Medical History - Social History Smoking Status: Current Every Day Smoker Family History: Reviewed & Not Pertinent - Past Medical History Cardiac Medical History: Reports: Hx Hypercholesterolemia, Hx Hypertension Denies: Hx Heart Attack Pulmonary Medical History: Reports: Hx Asthma, Hx COPD, Hx Pneumonia, Hx Respiratory Failure Neurological Medical History: Denies: Hx Cerebrovascular Accident, Hx Seizures Renal/ Medical History: Denies: Hx Peritoneal Dialysis GI Medical History: Reports: Hx Gastroesophageal Reflux Disease. Denies: Hx Hepatitis, Hx Hiatal Hernia, Hx Ulcer Musculoskeletal Medical History: Reports Hx Arthritis Psychiatric Medical History: Reports: Hx Depression Infectious Medical History: Denies: Hx Hepatitis, Hx HIV Past Surgical History: Reports: Hx Section, Hx Genitourinary Surgery - bladder sling, Hx Hysterectomy, Hx Orthopedic Surgery - Bilateral shoulder replacement, Other - Bladder sling. Denies: Hx Mastectomy, Hx Open Heart Surgery, Hx Pacemaker - Immunizations Hx Pneumococcal Vaccination: 09/27/15 Review of Systems - Review of Systems Constitutional: Malaise, Weakness Respiratory: Cough, Short of breath Gastrointestinal: Diarrhea Musculoskeletal: Muscle pain Skin: No symptoms reported Neurological/Psychological: Anxiety, Headaches -: Yes All other systems reviewed and negative Physical Exam - Vital signs Vitals: Temp Pulse Resp BP Pulse Ox 97.5 F 101 H 22 H 93/76 L 94 12/30/19 14:44 12/30/19 14:44 12/30/19 14:44 12/30/19 14:44 12/30/19 14:44 - General General appearance: Anxious In distress: None - HEENT Head: Normocephalic, Atraumatic Eyes: Normal Conjunctiva: Normal Extraocular movements intact: Yes Eyelashes: Normal Pupils: PERRL Ears: Normal External canal: Normal Tympanic membrane: Normal Sinus: Normal Nasal: Normal Mouth/Lips: Normal Mucous membranes: Normal, Moist Pharynx: Normal Neck: Normal, Supple - Respiratory Respiratory status: No respiratory distress Chest status: Nontender Breath sounds: Other - Decreased breath sounds throughout. Force full coarse cough Chest palpation: Normal Notes: No distress. Speaking in full sentences - Cardiovascular Rhythm: Regular Heart sounds: Normal auscultation - Abdominal Inspection: Normal Distension: No distension Bowel sounds: Normal Tenderness: Nontender Organomegaly: No organomegaly - Extremities General upper extremity: Normal inspection, Nontender, Normal color, Normal ROM, Normal temperature General lower extremity: Normal inspection, Nontender, Normal color, Normal ROM, Normal temperature, Normal weight bearing. No: Anca's sign - Neurological Neuro grossly intact: Yes Cognition: Normal Orientation: AAOx4 [place] Coma Scale Eye Opening: Spontaneous [place] Coma Scale Verbal: Oriented [place] Coma Scale Motor: Obeys Commands [place] Coma Scale Total: 15 Speech: Normal Motor strength normal: LUE, RUE, LLE, RLE Sensory: Normal - Psychological Associated symptoms: Anxious - Skin Skin Temperature: Warm Skin Moisture: Dry Skin Color: Normal Course - Re-evaluation Re-evalutation: 12/30/19 20:23 Reevaluation at this time, patient is resting comfortably in the room. She is breathing without any distress. No labored respirations. She speaking in full sentences. I spent approximately 15 minutes in the room discussing the results with her and a plan. She did not have any coughing during this time. I suspect that the symptoms she came in for of the generalized multifocal complaints are likely in relation to the fact that she is taking hypertensive medications when her baseline blood pressures tend to be low normal. I trended her blood pressures all the way back to her original visits here and the blood pressures that she has had here are fairly standard for her. I suggested that she would might want to discontinue her blood pressure medication for now, monitor her blood pressure very closely at home and call her primary care provider on Wednesday morning for further guidance. She received 2 L normal saline here as she was slightly dehydrated with a worsening kidney function. She received 125 Solu- Medrol and 2 g magnesium. Breathing well on room air. Imaging negative for any acute process per radiologist. Suspect that she may also benefit from home oxygen but she states that Medicaid has denied this because she does not desaturate enough with exertion. She states that she was referred to a real estate sales agent in the past but states that is too far to drive to see him so she decided not to do it anymore. She has home medications for COPD. We will hold off on any further steroids given her recent dose administrations and her kidney function. I counseled her regarding rest, hydration, use of her COPD medic ations as previously prescribed. Advised that she return here or any ER immediately with any new, persistent or worsening symptoms. She verbalized understood and agreed. - Vital Signs Vital signs: Temp Pulse Resp BP Pulse Ox 99.2 F 94 20 113/50 L 94 12/30/19 19:22 12/30/19 17:29 12/30/19 20:01 12/30/19 20:01 12/30/19 20:01 - Laboratory Result Diagrams: 12/30/19 15:59 12/30/19 17:57 Laboratory results interpreted by me: 12/30/19 12/30/19 12/30/19 15:59 17:57 17:57 WBC 26.0 H RBC 5.31 H RDW 14.2 H Seg Neuts % (Manual) 86 H Band Neutrophils % 2 L Lymphocytes % (Manual) 5 L Abs Neuts (Manual) 22.9 H Abs Monocytes (Manual) 1.6 H VBG pH VBG pCO2 Sodium 132.0 L Potassium 5.3 H BUN 50 H Creatinine 1.59 H Est GFR ( Amer) 39 L Est GFR (MDRD) Non-Af 32 L Calcium 8.0 L NT-Pro-B Natriuret Pep 194 H Total Protein 6.2 L Albumin 3.3 L 12/30/19 17:57 WBC RBC RDW Seg Neuts % (Manual) Band Neutrophils % Lymphocytes % (Manual) Abs Neuts (Manual) Abs Monocytes (Manual) VBG pH 7.43 H VBG pCO2 33.7 L Sodium Potassium BUN Creatinine Est GFR ( Amer) Est GFR (MDRD) Non-Af Calcium NT-Pro-B Natriuret Pep Total Protein Albumin Discharge - Discharge Clinical Impression: COPD exacerbation Condition: Stable Disposition: HOME, SELF-CARE Instructions: Chronic Obstructive Lung Disease ([facility]) Additional Instructions: Please call your primary doctor on Wednesday morning for continued discussion of your blood pressure. Please continue to drink clear fluids. Rest and use your COPD medications. Please avoid your high blood pressure medicine for now. Monitor your blood pressure very closely. Please return here or any ER immediately with any new, persistent or worsening symptoms. Referrals: ORESTES TORRES PA [Primary Care Provider] - Follow up as needed
--- NOTE | 2019-12-30 15:50 | RADIOLOGY REPORT (SQ) ---
EXAM DESCRIPTION: CT CHEST WITHOUT IMAGES COMPLETED DATE/TIME: 12/30/2019 2:25 pm REASON FOR STUDY: cough, sob COMPARISON: 12/23/2019. TECHNIQUE: CT scan performed of the chest without intravenous contrast. Images reviewed with lung, soft tissue and bone windows. Reconstructed coronal and sagittal MPR images reviewed. All images st ored on PACS. All CT scanners at this facility use dose modulation, iterative reconstruction, and/or weight based d osing when appropriate to reduce radiation dose to as low as reasonably achievable (ALARA). [facility]: Dose Right [facility]: CareDose [facility]: Dose Right [facility]: Teradose 4D [facility]: Smart Aveksa RADIATION DOSE: CT Rad equipment meets quality standard of care and radiation dose reduction techniq ues were employed. CTDIvol: 19.2 mGy. DLP: 767 mGy-cm. mGy. LIMITATIONS: No technical limitations. FINDINGS: LUNGS AND PLEURA: The trachea has normal caliber and appearance. Background mild pulmonar y emphysema and mild subpleural reticulation stable from previous. No focal consolidation or pleural effusion. No pneumothorax. HILAR AND MEDIASTINAL STRUCTURES: Prominent mediastinal lymph nodes are stable. Small hiatal hernia. HEART AND VASCULAR STRUCTURES: No aneurysm. No pericardial effusion. UPPER ABDOMEN: Moderate hepatic steatosis. THYROID AND OTHER SOFT TISSUES: No masses. No adenopathy. BONES: No significant finding. HARDWARE: None in the chest. OTHER: No other significant findings. IMPRESSION: 1. No focal consolidation or acute pulmonary disease. 2. Background mild pulmonary emphysema/mild pulmonary fibrosis, stable. 3. Moderate hepatic steatosis. TECHNICAL DOCUMENTATION: JOB ID: [id number] Quality ID # [id number]: Final reports with documentation of one or more dose reduction techniques (e.g., Au tomated exposure control, adjustment of the mA and/or kV according to patient size, use of iterative reconstruction technique) 2010 [employer]- All Rights Reserved Reading location - IP/workstation name: [id number]
[2019-12-30 16:28] LABS: HEMATOCRIT 43.9 % (36.0-47.0); HEMOGLOBIN 14.4 g/dL (12.0-15.5); MEAN CORPUSCULAR HEMOGLOBIN 27.1 pg (27.0-33.4); MEAN CORPUSCULAR HGB CONC 32.7 g/dL (32.0-36.0); MEAN CORPUSCULAR VOLUME 83 fl (80-97); PLATELET COUNT 240 10^3/uL (150-450); RED BLOOD COUNT 5.31 10^6/uL (3.72-5.28); RED CELL DISTRIBUTION WIDTH 14.2 % (11.5-14.0)
[2019-12-30 17:01] LABS: ABSOLUTE LYMPHOCYTES# (MANUAL) 1.3 10^3/uL (0.5-4.7); ABSOLUTE MONOCYTES # (MANUAL) 1.6 10^3/uL (0.1-1.4); BAND NEUTROPHILS % (MANUAL) 2 % (3-5); BASOPHILS % (MANUAL) 0 % (0-2); EOSINOPHILS % (MANUAL) 1 % (0-6); LYMPHOCYTES % (MANUAL) 5 % (13-45); MONOCYTES % (MANUAL) 6 % (3-13); SEGMENTED NEUTROPHILS % (MAN) 86 % (42-78); TOTAL CELLS COUNTED 100
[2019-12-30 17:03] LABS: PLATELET COMMENT ADEQUATE
[2019-12-30 17:11] LABS: INTERNATIONAL RATION (INR) 1.11; PROTHROMBIN TIME 14.4 SEC (11.4-15.4)
[2019-12-30 17:12] LABS: PARTIAL THROMBOPLASTIN TIME 28.4 SEC (23.5-35.8)
[2019-12-30] MEDS ORDERED: METHYLPREDNISOLONE INJ 125 MG/2 ML SDV IV ONE (17:32)
[2019-12-30 18:25] LABS: ALBUMIN 3.3 g/dL (3.5-5.0); ALKALINE PHOSPHATASE 68 U/L (38-126); ANION GAP 6 (5-19); ASPARTATE AMINO TRANSFERASE 22 U/L (14-36); BILIRUBIN,DIRECT 0.1 mg/dL (0.0-0.4); BILIRUBIN,TOTAL 0.7 mg/dL (0.2-1.3); BLOOD UREA NITROGEN 50 mg/dL (7-20); CARBON DIOXIDE 24 mmol/L (22-30); CHLORIDE 102 mmol/L (98-107); CREATINE KINASE 77 U/L (30-135); GLUCOSE 97 mg/dL (75-110); POTASSIUM 5.3 mmol/L (3.6-5.0); TOTAL PROTEIN 6.2 g/dL (6.3-8.2)
[2019-12-30 18:27] LABS: VENOUS BLOOD BASE EXCESS -1.4 mmol/L; VENOUS BLOOD HCO3 22.1 mmol/L (20-32); VENOUS BLOOD PCO2 33.7 mmHg (35-63); VENOUS BLOOD PH 7.43 (7.30-7.42)
[2019-12-30 18:36] LABS: NT PRO BNP 194 pg/mL (<125)
[2019-12-30 18:37] LABS: TROPONIN I < 0.012 ng/mL
[2019-12-30] MEDS: MAGNESIUM SULFATE/D5W 1 GM/100 ML RTUPB IV SCH ×2 (19:23→20:25)
[2019-12-30 19:31] LABS: APPEARANCE,URINE SLIGHTLY-CLOUDY; BILIRUBIN,URINE NEGATIVE (NEGATIVE); COLOR,URINE YELLOW; GLUCOSE, URINE NEGATIVE (NEGATIVE); KETONES,URINE NEGATIVE (NEGATIVE); PROTEIN,URINE NEGATIVE (NEGATIVE); UROBILINOGEN,URINE NEGATIVE mg/dL (<2.0)
[2019-12-30 21:25] VITALS: BP 114/55
--- NOTE | 2019-12-31 10:59 | EKG REPORT ---
SEVERITY:- NORMAL ECG - SINUS RHYTHM : Confirmed by: Carmela Marion 31-Dec-2019 10:58:32
== END 2019-12-30 21:58 | disposition home or self-care (01) ==
LOC: ER 14:31
DX: J44.1 Chronic obstructive pulmonary disease with (acute) exacerbation (principal); R53.81 Other malaise; R53.1 Weakness; R05 Cough; F17.200 Nicotine dependence, unspecified, uncomplicated; E78.00 Pure hypercholesterolemia, unspecified; I10 Essential (primary) hypertension; J44.9 Chronic obstructive pulmonary disease, unspecified; Z90.710 Acquired absence of both cervix and uterus; Z96.612 Presence of left artificial shoulder joint; Z96.611 Presence of right artificial shoulder joint
CPT/HCPCS: 93005; 99285; 96361; 96375; 96365; 36415; 84145; 82550; 83605; 85025; 85610; 85730; 80053; 81001; 84484; 82803; 83880; 71250; 93010; J2930; J3475; J7030

== ENCOUNTER 2020-04-27 21:42 | Emergency (ER) | payer MEDICARE ==
[2020-04-28] MEDS ORDERED: IPRATROPIUM/ALBUTEROL 0.5-2.5 MG/3 ML AMPUL NEB ONE (02:27)
[2020-04-28] MEDS ORDERED: METHYLPREDNISOLONE INJ 125 MG/2 ML SDV IV ONE (02:28)
--- NOTE | 2020-04-28 02:46 | ER Document Report ---
Entered by CHERELLE TERAN SCRIBE 04/28/20 0226 Acting as scribe for:GEORGIE WATSON IV, MD ED Respiratory Problem - General Chief Complaint: Shortness Of Breath Stated Complaint: NAUSEA,WEAKNESS,COUGH Time Seen by Provider: 04/28/20 02:05 Primary Care Provider: ORESTES TORRES PA [Primary Care Provider] - Follow up as needed Mode of Arrival: Ambulatory Information source: Patient Notes: This 75 year old female patient with a history of COPD and continued tobacco use (1 ppd) presents to the ED today with complaints of shortness of breath and productive cough since yesterday. Patient states that she had x3 episodes where she would cough so hard that her vision would go black. She also mentions that she saw spots of blood in her sputum. Patient did a nebulizer treatment at home without relief. She also reports generalized weakness and nausea. TRAVEL OUTSIDE OF THE [place] IN LAST 30 DAYS: No - Related Data Allergies/Adverse Reactions: denosumab [From [employer]] Allergy (Verified 04/28/20 03:02) Penicillins Allergy (Verified 04/28/20 03:02) Generalized rash Sulfa (Sulfonamide Antibiotics) Allergy (Verified 04/28/20 03:02) Tetanus Vaccines and Toxoid Allergy (Verified 04/28/20 03:02) swelling at site Past Medical History - General Information source: Patient - Social History Smoking Status: Current Every Day Smoker Cigarette use (# per day): Yes - 1 ppd Chew tobacco use (# tins/day): No Smoking Education Provided: Yes Family History: Reviewed & Not Pertinent Patient has suicidal ideation: No Patient has homicidal ideation: No - Past Medical History Cardiac Medical History: Reports: Hx Hypercholesterolemia, Hx Hypertension Pulmonary Medical History: Reports: Hx Asthma, Hx COPD, Hx Pneumonia, Hx Respiratory Failure GI Medical History: Reports: Hx Gastroesophageal Reflux Disease Musculoskeletal Medical History: Reports Hx Arthritis Psychiatric Medical History: Reports: Hx Depression Past Surgical History: Reports: Hx Section, Hx Genitourinary Surgery - bladder sling, Hx Hysterectomy, Hx Orthopedic Surgery - Bilateral shoulder replacement - Immunizations Hx Pneumococcal Vaccination: 09/27/15 Review of Systems - Review of Systems Constitutional: See HPI, Weakness EENT: No symptoms reported Cardiovascular: No symptoms reported Respiratory: See HPI, Cough, Short of breath, Sputum Gastrointestinal: See HPI, Nausea Genitourinary: No symptoms reported Female Genitourinary: No symptoms reported Musculoskeletal: No symptoms reported Skin: No symptoms reported Hematologic/Lymphatic: No symptoms reported Neurological/Psychological: No symptoms reported -: Yes All other systems reviewed and negative Physical Exam - Vital signs Vitals: Temp Pulse Resp BP Pulse Ox 98.1 F 99 18 118/60 95 04/27/20 21:56 04/27/20 21:56 04/27/20 21:56 04/27/20 21:56 04/27/20 21:56 Interpretation: Normal - General General appearance: Alert, Anxious In distress: None - HEENT Head: Normocephalic, Atraumatic Eyes: Normal Pupils: PERRL - Respiratory Respiratory status: No respiratory distress Chest status: Nontender Breath sounds: Decreased air movement - Diminished breath sounds in all lung fie lds, Wheezing - Expiratory wheezing at right base Chest palpation: Normal - Cardiovascular Rhythm: Regular Heart sounds: Normal auscultation Murmur: No Friction rub: No Gallop: None auscultated - Abdominal Inspection: Normal Distension: No distension Bowel sounds: Normal Tenderness: Nontender - Abdomen soft Organomegaly: No organomegaly - Back Back: Normal, Nontender - Extremities General upper extremity: Normal inspection General lower extremity: Normal inspection - Neurological Neuro grossly intact: Yes Orientation: AAOx4 Donnie Coma Scale Eye Opening: Spontaneous Donnie Coma Scale Verbal: Oriented [place] Coma Scale Motor: Obeys Commands [place] Coma Scale Total: 15 - Psychological Associated symptoms: Normal affect, Normal mood - Skin Skin Temperature: Warm Skin Moisture: Dry Skin Color: Normal Course - Re-evaluation Re-evalutation: 04/28/20 05:40 Patient states she is feeling better at this time. Results of ED MSE discussed with patient. All questions were answered prior to discharge. Emergency signs and symptoms, reasons to return to the emergency department discussed with patient. - Vital Signs Vital signs: Temp Pulse Resp BP Pulse Ox 98.4 F 99 23 H 110/49 L 97 04/28/20 02:25 04/27/20 21:56 04/28/20 05:12 04/28/20 05:12 04/28/20 05:12 - Laboratory Result Diagrams: 04/28/20 03:15 04/28/20 03:15 Laboratory results interpreted by me: 04/28/20 04/28/20 03:15 03:15 WBC 11.8 H RBC 5.40 H RDW 14.5 H Sodium 135.0 L BUN 29 H Creatinine 1.54 H Est GFR ( Amer) 40 L Est GFR (MDRD) Non-Af 33 L Glucose 121 H - Diagnostic Test Radiology reviewed: Reports reviewed - EKG Interpretation by Me Additional EKG results interpreted by me: 04/28/20 05:41 EKG obtained on 04/28/2020 at 0317 hrs. was interpreted by this MD. Findings: Normal sinus rhythm, rate 77, normal axis, P waves preceding QRS complexes, QRS complexes appear narrow, there are no obvious patterns of ST segment elevation or depression present to suggest acute myocardial ischemia or infarction. Impression: Normal sinus rhythm with nonspecific ST segments. Discharge - Discharge Clinical Impression: COPD with acute exacerbation Condition: Stable Disposition: HOME, SELF-CARE Additional Instructions: Return to the Emergency Department without delay if any worse. HOME CARE INSTRUCTIONS & INFORMATION: Thank you for choosing us for your medical needs. We hope you're satisfied with the care you received. After you leave, you must properly care for your problem and, at the same time, observe its progress. Any condition can change. Some illnesses can change rapidly over hours or days. If your condition worsens, return to the Emergency Department or see your physician promptly. ABOUT YOUR X-RAYS AND EKG'S: If you had an EKG or X-rays taken, they have been read by the Emergency Physician. The X-rays and EKG's will also be read by a Radiologist or Transitional Care Manager within 24 hours. If discrepancies are noted, you will be notified by telephone. Please be certain the ED has a correct telephone number & address where you can be reached. Also, realize that some fractures or abnormalities do not show up on initial X-rays. If your symptoms continue, see your physician. ABOUT YOUR LABORATORY TEST: If you had laboratory tests, the results have been reviewed by the Emergency Physician. Some test results (for example cultures) may not be available for several days. You will be contacted if any test result shows you need additional treatment. Please be certain the ED has a correct telephone number and address where you can be reached. ABOUT YOUR MEDICATIONS: You will receive instructions on how to take your medicine on the prescription label you receive. Additional information may be provided by the Pharmacy. If you have questions afterwards, call the ED for clarification or further instructions. Some prescribed medications may cause drowsiness. Do not perform tasks such as driving a car or operating machinery without consulting your Pharmacist. If you feel you need a refill of pain medication, your condition will need re-evaluation. Please do not call for a refill of any medication. ABOUT YOUR SIGNATURE: Signature of this document acknowledges to followin. Understanding that you received emergency treatment and that you may be released before al medical problems are known or treated. Please be certain the ED has a correct phone number & address where you can be reached. 2. Acknowledgement that you will arrange for follow-up care as recommended. 3. Authorization for the Emergency Physician to provide information to your follow-up Physician in order to maximize your care. AT ANY TIME, IF YOUR SYMPTOMS CHANGE SIGNIFICANTLY OR WORSEN OR YOU DEVELOP NEW SYMPTOMS, RETURN TO THE EMERGENCY DEPARTMENT IMMEDIATELY FOR RE-EVALUATION. OUR GOAL IS TO PROVIDE EXCELLENT MEDICAL CARE! WE HOPE THAT WE HAVE MET YOUR EXPECTATIONS DURING YOUR EMERGENCY DEPARTMENT VISIT AND THAT YOU FEEL YOU HAVE RECEIVED EXCELLENT CARE! Chronic Obstructive Lung Disease You have chronic obstructive lung disease (COPD). The symptoms come from emphysema (damage to small airways, with trapping of air in large sacks in the lung) and chronic bronchitis (repeated infection and damage to larger airways). The cause is almost always cigarette smoking, although dust exposure, asthma, and infections contribute. You should avoid fumes, dust, and smoke (especially tobacco smoke). Your condition will flare from time to time. There is no cure, but the symptoms can be treated. Bronchodilators (asthma medicine) are often helpful. Antibiotics help when infection is present. When shortness of breath is severe, we may prescribe cortisone medication. If medicine doesn't help enough, we can arrange for you t o have an oxygen tank at home. Notify your doctor at once if sputum becomes thick, foul, or bloody, if you develop a fever or chest pain, or if your shortness of breath worsens. Prescriptions: Prednisone [Deltasone 10 mg Tablet] 10 mg PO ASDIR PRN #21 tablet PRN Reason: Referrals: ORESTES TORRES PA [Primary Care Provider] - Follow up as needed SYLVIA MENDIETA MD [ACTIVE STAFF] - 04/29/20 (call 04/29/2020 to schedule follow up appointment) ANDRADE SANTA MD [ACTIVE STAFF] - 04/29/20 (call to schedule follow up appointment) I personally performed the services described in the documentation, reviewed and edited the documentation which was dictated to the scribe in my presence, and it accurately records my words and actions.
--- NOTE | 2020-04-28 03:16 | RADIOLOGY REPORT (SQ) ---
EXAM DESCRIPTION: XR CHEST 1 VIEW COMPLETED DATE/TME: 04/28/2020 02:29 CLINICAL HISTORY: 75 years, Female, dyspnea COMPARISON: 12/23/2019 NUMBER OF VIEWS: One TECHNIQUE: AP view the chest LIMITATIONS: None. FINDINGS: There are stable prominent interstitial opacities, likely chronic. There is no focal consolidation. There are changes of a left shoulder arthroplasty. Surgical anchors are noted in the right humeral head. IMPRESSION: No acute cardiopulmonary abnormality copyright 2010 [employer]- All Rights Reserved
[2020-04-28 03:41] LABS: ABSOLUTE BASOPHILS # (AUTO) 0.1 10^3/uL (0.0-0.2); ABSOLUTE EOSINOPHILS # (AUTO) 0.3 10^3/uL (0.0-0.6); ABSOLUTE LYMPHOCYTES (AUTO) 3.5 10^3/uL (0.5-4.7); ABSOLUTE MONOCYTES (AUTO) 0.9 10^3/uL (0.1-1.4); ABSOLUTE NEUT (AUTO) 7.1 10^3/uL (1.7-8.2); BASOPHILS % (AUTO) 0.5 % (0-2); EOSINOPHILS % (AUTO) 2.3 % (0-6); HEMATOCRIT 44.5 % (36.0-47.0); HEMOGLOBIN 14.6 g/dL (12.0-15.5); LYMPHOCYTES % (AUTO) 29.7 % (13-45); MEAN CORPUSCULAR HGB CONC 32.7 g/dL (32.0-36.0); MEAN CORPUSCULAR VOLUME 82 fl (80-97); MONOCYTES % (AUTO) 7.4 % (3-13); PLATELET COUNT 316 10^3/uL (150-450); RED CELL DISTRIBUTION WIDTH 14.5 % (11.5-14.0); SEGMENTED NEUTROPHILS % (AUTO) 60.1 % (42-78); TOTAL CELLS COUNTED % (AUTO) 100 %; WHITE BLOOD COUNT 11.8 10^3/uL (4.0-10.5)
[2020-04-28 03:48] LABS: ALKALINE PHOSPHATASE 91 U/L (38-126); ANION GAP 9 (5-19); ASPARTATE AMINO TRANSFERASE 22 U/L (14-36); BILIRUBIN,TOTAL 0.2 mg/dL (0.2-1.3); BLOOD UREA NITROGEN 29 mg/dL (7-20); CALCIUM 9.1 mg/dL (8.4-10.2); CARBON DIOXIDE 24 mmol/L (22-30); CHLORIDE 102 mmol/L (98-107); GLUCOSE 121 mg/dL (75-110); POTASSIUM 4.9 mmol/L (3.6-5.0); TOTAL PROTEIN 7.2 g/dL (6.3-8.2)
[2020-04-28 05:53] VITALS: BP 115/77
--- NOTE | 2020-04-28 12:27 | EKG REPORT ---
SEVERITY:- NORMAL ECG - SINUS RHYTHM : Confirmed by: Nicole Huber MD 28-Apr-2020 12:27:05
== END 2020-04-28 06:07 | disposition home or self-care (01) ==
LOC: ER 21:42
DX: J44.1 Chronic obstructive pulmonary disease with (acute) exacerbation (principal); R11.0 Nausea; R53.1 Weakness; F17.210 Nicotine dependence, cigarettes, uncomplicated; E78.00 Pure hypercholesterolemia, unspecified; I10 Essential (primary) hypertension; Z88.0 Allergy status to penicillin; Z88.2 Allergy status to sulfonamides
CPT/HCPCS: 93005; 94640; 99284; 96374; 36415; 85025; 80053; 71045; 93010; J2930

== ENCOUNTER 2020-05-06 14:40 | Inpatient (IN) | payer MEDICARE ==
--- NOTE | 2020-05-06 18:07 | ER Document Report ---
Entered by ESDRAS HAMILTON SCRIBE 05/06/20 [id number] Acting as scribe for:CODY GARCIA MD ED General - General Chief Complaint: Rib Pain Stated Complaint: CHILLS/URINARY PROBLEM/WEAKNESS Time Seen by Provider: 05/06/20 16:51 Primary Care Provider: ORESTES TORRES PA [NO LOCAL MD] - Follow up as needed Information source: Patient Notes: This 75 year old female patient presents to the emergency department today with complaints of generalized weakness, a headache, and urinary frequency. Patient states that she also thinks she might be having seizures because her "mind goes whack and then her whole body starts shaking". Patient fell last night in her bathroom and hit her right chest wall and that area is now painful. She was seen here on 04/27 and was sent home on steroids for COPD exacerbation and bronchitis. She saw pulmonology and she was started on Septra and doxycycline as well and she should be finishing these prescriptions today. TRAVEL OUTSIDE OF THE [place] IN LAST 30 DAYS: No - Related Data Allergies/Adverse Reactions: denosumab [From Belanit] Allergy (Verified 04/28/20 03:02) Penicillins Allergy (Verified 04/28/20 03:02) Generalized rash Sulfa (Sulfonamide Antibiotics) Allergy (Verified 04/28/20 03:02) Tetanus Vaccines and Toxoid Allergy (Verified 04/28/20 03:02) swelling at site Home Medications: Sulfamethoxazole, Doxycycline Past Medical History - General Information source: Patient - Social History Smoking Status: Current Every Day Smoker Cigarette use (# per day): Yes - 1 ppd Chew tobacco use (# tins/day): No Smoking Education Provided: No Frequency of alcohol use: None Drug Abuse: None Lives with: Family Family History: Reviewed & Not Pertinent - Past Medical History Cardiac Medical History: Reports: Hx Hypercholesterolemia, Hx Hypertension Pulmonary Medical History: Reports: Hx Asthma, Hx COPD, Hx Pneumonia, Hx Respiratory Failure GI Medical History: Reports: Hx Gastroesophageal Reflux Disease Musculoskeletal Medical History: Reports Hx Arthritis Psychiatric Medical History: Reports: Hx Depression Past Surgical History: Reports: Hx Section, Hx Genitourinary Surgery - bladder sling, Hx Hysterectomy, Hx Orthopedic Surgery - Left total shoulder replacement, right rotator cuff repair, Other - Bladder sling - Immunizations Hx Pneumococcal Vaccination: 09/27/15 Review of Systems - Review of Systems Constitutional: See HPI, Weakness EENT: No symptoms reported Cardiovascular: See HPI, Chest pain Respiratory: No symptoms reported Gastrointestinal: No symptoms reported Genitourinary: See HPI, Frequency Female Genitourinary: No symptoms reported Musculoskeletal: No symptoms reported Skin: No symptoms reported Hematologic/Lymphatic: No symptoms reported Neurological/Psychological: See HPI, Headaches -: Yes All other systems reviewed and negative Physical Exam - Vital signs Vitals: Temp Pulse Resp BP Pulse Ox 98.7 F 86 16 106/45 L 100 05/06/20 14:46 05/06/20 14:46 05/06/20 14:46 05/06/20 14:46 05/06/20 14:46 - Notes Notes: Physical Exam: General: Alert, appears well. HEENT: Normocephalic. Atraumatic. PERRL. Extraocular movements intact. Orophary nx clear. Scalp muscles are tender with palpation. Neck: Supple. Posterior cervical muscles are tender. Respiratory: No respiratory distress. Clear and equal breath sounds bilaterally. Right ribs are tender with palpation. Cardiovascular: Regular rate and rhythm. Abdominal: Normal Inspection. Non-tender. No distension. Normal Bowel Sounds. Back: Trapezius muscles are tender with palpation. Extremities: Moves all four extremities. Upper extremities: Normal inspection. Normal ROM. Lower extremities: Normal inspection. No edema. Normal ROM. Neurological: Normal cognition. AAOx4. Normal speech. Psychological: Normal affect. Normal Mood. Skin: Warm. Dry. Normal color. Course - Vital Signs Vital signs: Temp Pulse Resp BP Pulse Ox 98.7 F 86 16 106/45 L 100 05/06/20 14:46 05/06/20 14:46 05/06/20 14:46 05/06/20 14:46 05/06/20 14:46 - Laboratory Result Diagrams: 05/06/20 18:09 05/06/20 18:09 Laboratory results interpreted by me: 05/06/20 05/06/20 05/06/20 18:09 18:09 19:15 RBC 5.96 H Hgb 16.0 H Hct 48.6 H MCH 26.8 L RDW 14.7 H Seg Neuts % (Manual) 80 H Lymphocytes % (Manual) 12 L Monocytes % (Manual) 2 L Sodium 133.2 L Potassium 5.8 H BUN 49 H Creatinine 2.40 H Est GFR ( Amer) 24 L Est GFR (MDRD) Non-Af 20 L AST 48 H ALT 36 H Creatine Kinase 136 H Urine Protein 30 H Urine Ketones TRACE H - Diagnostic Test Radiology reviewed: Image reviewed, Reports reviewed - Chest x-ray does not show acute cardiopulmonary process. - EKG Interpretation by Me EKG shows normal: Sinus rhythm, [place], Intervals, QRS Complexes, ST-T Waves Rate: Normal - 87 Rhythm: NSR P Waves: ISRA When compared to previous EKG there are: No significant change - Consults Dr. Torres Time consulted: 20:01 Consulted provider: will come to ER Discharge - Discharge Clinical Impression: Dehydration, Acute kidney injury, Malaise and fatigue, Hyperkalemia Hypotension Qualifiers: Hypotension type: unspecified hypotension type Qualified Code(s): I95.9 - Hypotension, unspecified Contusion of rib on right side Qualifiers: Encounter type: initial encounter Qualified Code(s): S20.211A - Contusion of right front wall of thorax, initial encounter Condition: Stable Disposition: ADMITTED INPATIENT Admitting Provider: Brian (Hospitalist) Unit Admitted: Medical Floor Referrals: ORESTES TORRES PA [NO LOCAL MD] - Follow up as needed I personally performed the services described in the documentation, reviewed and edited the documentation which was dictated to the scribe in my presence, and it accurately records my words and actions.
--- NOTE | 2020-05-06 18:10 | RADIOLOGY REPORT (SQ) ---
EXAM DESCRIPTION: CHEST SINGLE VIEW IMAGES COMPLETED DATE/TIME: 05/06/2020 5:51 pm REASON FOR STUDY: COPD fatigue right rib injury COMPARISON: None. EXAM PARAMETERS: NUMBER OF VIEWS: One view. TECHNIQUE: Single frontal radiographic view of the chest acquired. RADIATION DOSE: NA LIMITATIONS: None. FINDINGS: LUNGS AND PLEURA: Stable small nodule in the periphery of the right upper lobe. No acute pulmonary consolidation. No pneumothorax or pleural effusion. MEDIASTINUM AND HILAR STRUCTURES: Stable appearance. HEART AND VASCULAR STRUCTURES: Heart normal in size. Normal vasculature. BONES: The osseous structures are stable in appearance. HARDWARE: None in the chest. OTHER: No other significant finding. IMPRESSION: 1. No significant interval changes since the prior study dated 04/28/2020. No acute pulm onary findings. TECHNICAL DOCUMENTATION: JOB ID: [id number] 2010 [employer]- All Rights Reserved Reading location - IP/workstation name: [email or web address]
[2020-05-06 18:26] LABS: HEMATOCRIT 48.6 % (36.0-47.0); MEAN CORPUSCULAR HEMOGLOBIN 26.8 pg (27.0-33.4); MEAN CORPUSCULAR HGB CONC 32.9 g/dL (32.0-36.0); MEAN CORPUSCULAR VOLUME 82 fl (80-97); PLATELET COUNT 197 10^3/uL (150-450); RED BLOOD COUNT 5.96 10^6/uL (3.72-5.28); RED CELL DISTRIBUTION WIDTH 14.7 % (11.5-14.0); WHITE BLOOD COUNT 9.3 10^3/uL (4.0-10.5)
[2020-05-06 18:44] LABS: ALBUMIN 3.8 g/dL (3.5-5.0); ALKALINE PHOSPHATASE 79 U/L (38-126); ANION GAP 10 (5-19); ASPARTATE AMINO TRANSFERASE 48 U/L (14-36); BILIRUBIN,DIRECT 0.2 mg/dL (0.0-0.4); BILIRUBIN,TOTAL 0.4 mg/dL (0.2-1.3); BLOOD UREA NITROGEN 49 mg/dL (7-20); CARBON DIOXIDE 24 mmol/L (22-30); CHLORIDE 99 mmol/L (98-107); CREATINE KINASE 136 U/L (30-135); GLUCOSE 101 mg/dL (75-110); POTASSIUM 5.8 mmol/L (3.6-5.0); TOTAL PROTEIN 6.9 g/dL (6.3-8.2)
[2020-05-06 18:51] LABS: ABSOLUTE LYMPHOCYTES# (MANUAL) 1.3 10^3/uL (0.5-4.7); ABSOLUTE MONOCYTES # (MANUAL) 0.2 10^3/uL (0.1-1.4); BAND NEUTROPHILS % (MANUAL) 3 % (3-5); BASOPHILS % (MANUAL) 0 % (0-2); EOSINOPHILS % (MANUAL) 1 % (0-6); LYMPHOCYTES % (MANUAL) 12 % (13-45); MONOCYTES % (MANUAL) 2 % (3-13); SEGMENTED NEUTROPHILS % (MAN) 80 % (42-78); TOTAL CELLS COUNTED 100
[2020-05-06 18:52] LABS: PLATELET COMMENT ADEQUATE; TOXIC VACUOLATION PRESENT
[2020-05-06 18:53] LABS: ANISOCYTOSIS SLIGHT; HYPOCHROMASIA SLIGHT
[2020-05-06 18:54] LABS: SCHISTOCYTES SLIGHT; TARGET CELLS SLIGHT
--- NOTE | 2020-05-06 19:13 | EKG REPORT ---
SEVERITY:- ABNORMAL ECG - SINUS RHYTHM RIGHT ATRIAL ABNORMALITY : Confirmed by: Carmela Marion 06-May-2020 19:13:20
[2020-05-06 19:38] LABS: APPEARANCE,URINE SLIGHTLY-CLOUDY; BILIRUBIN,URINE NEGATIVE (NEGATIVE); COLOR,URINE AMBER; GLUCOSE, URINE NEGATIVE (NEGATIVE); KETONES,URINE TRACE mg/dL (NEGATIVE); LEUKOCYTE ESTERASE,URINE NEGATIVE (NEGATIVE); NITRITE,URINE NEGATIVE (NEGATIVE); PROTEIN,URINE 30 mg/dL (NEGATIVE); URINE SPECIFIC GRAVITY 1.018; UROBILINOGEN,URINE NEGATIVE mg/dL (<2.0)
[2020-05-06] MEDS: NORMAL SALINE 1000 ML 1,000 ML IV PRN ×2 (19:43→20:47)
[2020-05-06] MEDS ORDERED: NORMAL SALINE 1000 ML 1,000 ML IV ONE (20:31)
[2020-05-06] MEDS ORDERED: LEVALBUTEROL HCL NEB 0.63 MG/3 ML AMPUL NEB PRN (22:30)
[2020-05-06] MEDS ORDERED: DEXTROSE 5%-NORMAL SALINE 1,000 ML IV PRN (22:30)
[2020-05-06] MEDS ORDERED: ONDANSETRON HCL INJ/PF 4 MG/2 ML SDV IV PRN (22:30)
[2020-05-06] MEDS ORDERED: MAGNESIUM HYDROXIDE SUSP 30 ML UDCUP PO PRN (22:30)
[2020-05-06] MEDS ORDERED: MAG HYDROX/AL HYDROX/SIMETH SUSP 30 ML UDCUP PO PRN (22:30)
[2020-05-06] MEDS ORDERED: NICOTINE 21 MG/24 HR PATCH.TD24 TD PRN (22:38)
[2020-05-06] MEDS ORDERED: GUAIFENESIN SYRP 200 MG/10 ML UDC PO PRN (22:38)
[2020-05-06] MEDS ORDERED: LORAZEPAM INJ 2 MG/1 ML VIAL IV PRN (22:38)
[2020-05-06] MEDS: LEVALBUTEROL HCL NEB 1.25 MG/3 ML AMPUL NEB SCH (23:38)
[2020-05-06] MEDS: MORPHINE SULFATE 10 MG/ML INJ IV PRN (23:38)
[2020-05-06] MEDS: IPRATROPIUM BROMIDE 0.02% NEB 0.5 MG/2.5 ML AMPUL NEB SCH (23:39)
[2020-05-06] MEDS: ACETAMINOPHEN 325 MG TABLET PO PRN (23:39)
[2020-05-07 06:19] LABS: HEMATOCRIT 40.7 % (36.0-47.0); MEAN CORPUSCULAR HEMOGLOBIN 26.8 pg (27.0-33.4); MEAN CORPUSCULAR HGB CONC 33.3 g/dL (32.0-36.0); MEAN CORPUSCULAR VOLUME 81 fl (80-97); PLATELET COUNT 154 10^3/uL (150-450); RED BLOOD COUNT 5.05 10^6/uL (3.72-5.28); RED CELL DISTRIBUTION WIDTH 14.6 % (11.5-14.0); WHITE BLOOD COUNT 5.4 10^3/uL (4.0-10.5)
[2020-05-07 06:24] LABS: ANION GAP 5 (5-19); BLOOD UREA NITROGEN 40 mg/dL (7-20); CALCIUM 7.9 mg/dL (8.4-10.2); CARBON DIOXIDE 22 mmol/L (22-30); CHLORIDE 106 mmol/L (98-107); GLUCOSE 145 mg/dL (75-110); TRIGLYCERIDES 220 mg/dL (<150)
--- NOTE | 2020-05-07 06:24 | PDOC H&P ---
History of Present Illness Admission Date/PCP: 05/06/20 20:30 SYLVIA MENDIETA MD Patient complains of: Generalized weakness History of Present Illness: OLIVE SAMUEL is a 75 year old female who presents the emergency room with a two-week history of generalized weakness. She admits the gradual onset and progressive worsening of generalized weakness over the course of the last 2 weeks becoming severe today. Her weakness has been accompanied by a headache, episodes of rigors, urinary frequency, fatigue and malaise. Her weakness has been associated with a fall at home last night in her bathroom, in which she contused her right chest. She denies other associated or accompanying signs and symptoms. She admits prior similar episodes. She admits that 10 days ago she was seen in the emergency room and was given oral steroids for an acute exacerbation of COPD. She admits that 1 week ago she was seen by her assembly machine tender who put her on doxycycline and Bactrim DS x7 days for an ex acerbation of her COPD. She has not identified any aggravating or ameliorating factors for her generalized weakness. In the emergency room the patient was found to be mildly hypotensive and was noted to have an acute kidney injury. She was subsequently admitted hospital for further evaluation and treatment. Past Medical History Cardiac Medical History: Reports: Hyperlipidema, Hypertension Denies: Atrial Fibrillation, Congestive Heart Failure, Coronary Artery Disease, DVT, Myocardial Infarction, Pulmonary Embolism Pulmonary Medical History: Reports: Asthma, Chronic Obstructive Pulmonary Disease (COPD), Pneumonia, Respiratory Failure EENT Medical History: Reports: Cataracts Denies: Ears - Hearing aids Neurological Medical History: Denies: Hemorrhagic CVA, Ischemic CVA, Seizures Endocrine Medical History: Reports: Obesity Denies: Diabetes Mellitus Type 1, Diabetes Mellitus Type 2, Hyperthyroidism, Hypothyroidism Renal/ Medical History: Denies: Chronic Kidney Disease, Nephrolithiasis Malignancy Medical History: Reports: None GI Medical History: Reports: Gastroesophageal Reflux Disease Denies: Cirrhosis, Crohn's Disease, Hepatitis, Hiatal Hernia, Peptic Ulcer Disease, Ulcerative Colitis Musculoskeltal Medical History: Reports: Arthritis Denies: Gout Skin Medical History: Denies: Eczema, Psoriasis Psychiatric Medical History: Reports: Depression, Tobacco Dependency Denies: Alcohol Dependency, Substance Abuse Traumatic Medical History: Reports: None Hematology: Denies: Anemia, Bleeding Tendencies Infectious Medical History: Reports: None Past Surgical History Past Surgical History: Reports: Section, Hysterectomy, Orthopedic Surgery - Left total shoulder replacement, right rotator cuff repair, Other - Bladder sling, colonoscopy with biopsy, bilateral cataract surgery Social History Information Source: Patient Lives with: Family Smoking Status: Current Every Day Smoker Electronic Cigarette use?: No Frequency of Alcohol Use: None Hx Recreational Drug Use: No Drugs: None Hx Prescription Drug Abuse: No - Advance Directive Resuscitation Status: Full Code Surrogate healthcare decision maker:: Urszula Samuel Family History Family History: Arthritis, CAD. denies: DM, Hypertension, Malignancy Parental Family History Reviewed: Yes Children Family History Reviewed: No Sibling(s) Family History Reviewed.: Yes Medication/Allergy Home Medications: Albuterol Sulfate [Ventolin Hfa 8 gm Mdi (1 Mdi/ER Disp)] 2 puff IH Q6H PRN 08/14/18 Cholecalciferol (Vitamin D3) [Vitamin D3] 50,000 unit PO Q7D 08/14/18 Fenofibrate Nanocrystallized [Tricor 48 mg Tablet] 48 mg PO DAILY 08/14/18 Gabapentin [Neurontin 100 mg Capsule] 200 mg PO TID 08/14/18 Montelukast Sodium [Singulair 10 mg Tablet] 10 mg PO DAILY 08/14/18 Omeprazole 40 mg PO DAILY 08/14/18 Rosuvastatin Calcium [Crestor 10 mg Tablet] 10 mg PO DAILY 08/14/18 Escitalopram Oxalate [Lexapro 10 mg Tablet] 20 mg PO DAILY 08/17/18 Budesonide/Formoterol Fumarate [Symbicort Hfa 80-4.5 Mcg Inhaler 6.9 gm] 1 puff IH Q12H #1 inhaler 08/20/18 Hydrochlorothiazide [Hydrodiuril 12.5 mg Tablet] 12.5 mg PO QAM #30 capsule 08/20/18 Aspirin/Acetaminophen/Caffeine [Excedrin Extra Strength Caplet] 1 each PO ASDIR PRN 09/14/18 Cyanocobalamin (Vitamin B-12) [Vitamin B12] 2,500 mcg PO DAILY 06/30/19 Prednisone [Deltasone 20 mg Tablet] 3 tab PO DAILY 5 Days tablet 12/23/19 Prednisone [Deltasone 10 mg Tablet] 10 mg PO ASDIR PRN #21 tablet 04/28/20 Allergies/Adverse Reactions: denosumab [From GLOG] Allergy (Verified 04/28/20 03:02) Penicillins Allergy (Verified 04/28/20 03:02) Generalized rash Sulfa (Sulfonamide Antibiotics) Allergy (Verified 04/28/20 03:02) Tetanus Vaccines and Toxoid Allergy (Verified 04/28/20 03:02) swelling at site Review of Systems Constitutional: PRESENT: as per HPI, fatigue, headache(s), weakness. ABSENT: chills, fever(s) Eyes: ABSENT: visual disturbances, other - Eye pain Ears: ABSENT: hearing changes, other - Ear pain Nose, Mouth, and Throat: PRESENT: headache(s). ABSENT: sore throat Cardiovascular: ABSENT: chest pain, palpitations Respiratory: PRESENT: cough, dyspnea, other - Wheezing Gastrointestinal: ABSENT: abdominal pain, constipation, diarrhea, nausea, vomiting Genitourinary: PRESENT: other - Urinary frequency. ABSENT: dysuria, hematuria Musculoskeletal: ABSENT: joint swelling Integumentary: ABSENT: pruritus, rash Neurological: ABSENT: confusion, convulsions, focal weakness, memory loss, syncope Psychiatric: ABSENT: anxiety, depression Endocrine: ABSENT: cold intolerance, heat intolerance Hematologic/Lymphatic: ABSENT: easy bleeding, easy bruising Allergic/Immunologic: ABSENT: seasonal rhinorrhea Physical Exam Vital Signs: Temp Pulse Resp BP Pulse Ox 98.7 F 86 16 106/45 L 100 05/06/20 14:46 05/06/20 14:46 05/06/20 14:46 05/06/20 14:46 05/06/20 14:46 Intake & Output 05/04/20 05/05/20 05/06/20 23:59 23:59 23:59 Intake Total 1000 Balance 1000 Weight 88.451 kg General appearance: PRESENT: no acute distress, cooperative, obese Head exam: PRESENT: atraumatic, normocephalic Eye exam: PRESENT: conjunctiva pink. ABSENT: conjunctival injection, scleral icterus Ear exam: PRESENT: normal external ear exam. ABSENT: bleeding, drainage Mouth exam: PRESENT: dry mucosa, neck supple Neck exam: ABSENT: thyromegaly, tracheal deviation Respiratory exam: PRESENT: prolonged expiratory phas - Only prolonged expiratory phase throughout all johnson, symmetrical, wheezes - Mild expiratory wheezing all johnson Cardiovascular exam: PRESENT: RRR. ABSENT: clicks, gallop, rubs Pulses: PRESENT: normal radial pulses, normal dorsalis pedis pul Vascular exam: PRESENT: normal capillary refill. ABSENT: pallor GI/Abdominal exam: PRESENT: normal bowel sounds, soft. ABSENT: tenderness Rectal exam: PRESENT: deferred Extremities exam: ABSENT: joint swelling, pedal edema Musculoskeletal exam: ABSENT: deformity, dislocation Neurological exam: PRESENT: alert, oriented to person, oriented to place, o riented to time, oriented to situation, CN II-XII grossly intact. ABSENT: motor sensory deficit Psychiatric exam: PRESENT: appropriate affect, normal mood Skin exam: PRESENT: dry, intact, warm. ABSENT: jaundice, rash, urticaria Results Laboratory Results: 05/06/20 18:09 05/06/20 18:09 05/06/20 05/06/20 05/06/20 18:09 18:09 19:15 WBC 9.3 RBC 5.96 H Hgb 16.0 H Hct 48.6 H MCV 82 MCH 26.8 L MCHC 32.9 RDW 14.7 H Plt Count 197 Seg Neutrophils % Not Reportable Sodium 133.2 L Potassium 5.8 H Chloride 99 Carbon Dioxide 24 Anion Gap 10 BUN 49 H Creatinine 2.40 H Est GFR ( Amer) 24 L Glucose 101 Calcium 9.0 Total Bilirubin 0.4 AST 48 H Alkaline Phosphatase 79 Total Protein 6.9 Albumin 3.8 Urine Color AIYANA Urine Appearance SLIGHTLY-CLOUDY Urine pH 5.0 Ur Specific [place] 1.018 Urine Protein 30 H Urine Glucose (UA) NEGATIVE Urine Ketones TRACE H Urine Blood NEGATIVE Urine Nitrite NEGATIVE Ur Leukocyte Esterase NEGATIVE Urine WBC (Auto) 1 Urine RBC (Auto) 3 05/06/20 05/06/20 18:09 18:09 Creatine Kinase 136 H Troponin I < 0.012 Impressions: Chest X-Ray 05/06/20 17:21 IMPRESSION: 1. No significant interval changes since the prior study dated 04/28/2020. No acute pulmonary findings. Assessment and Plan - Diagnosis (1) Acute kidney injury Is this a current diagnosis for this admission?: Yes (2) Hyperkalemia Is this a current diagnosis for this admission?: Yes (3) Hypovolemia Is this a current diagnosis for this admission?: Yes (4) Malaise and fatigue Is this a current diagnosis for this admission?: Yes (5) Contusion of rib on right side Qualifiers: Encounter type: initial encounter Qualified Code(s): S20.211A - Contusion of right front wall of thorax, initial encounter Is this a current diagnosis for this admission?: Yes (6) Tobacco use disorder, severe, dependence Is this a current diagnosis for this admission?: Yes - Plan Summary Summary: Patient will be admitted to medical floor where she will receive routine supportive and symptomatic cares. She will treated with IV fluids utilizing D5 normal saline at 167 mL/h. She will receive morphine sulfate 2 to 4 mg IV every 2 hours as needed for pain. She will receive Ativan 1 mg IV every 4 hours as needed for anxiety or restlessness. CBCs, metabolic profiles, magnesium levels and additional laboratory and/or radiographic evaluations will be obtained as appropriate. She will be on a cardiac diet. Smoking cessation is advised and counseled briefly at the bedside. Nicotine replacement patch is available for the patient's use, if desired. - Time Time Spent with patient: 15-24 minutes Smoking Cessation Education: 3 to 10 minutes Medications reviewed and adjusted accordingly: Yes Anticipated Discharge Disposition: Home, Self Care Anticipated Discharge Timeframe: within 72 hours - Inpatient Certification Based on my medical assessment, after consideration of the patient's comorbidities, presenting symptoms, or acuity I expect that the services needed warrant INPATIENT care.: Yes I certify that my determination is in accordance with my understanding of Medicare's requirements for reasonable and necessary INPATIENT services [42 CFR 412.3e].: Yes Medical Necessity: Failure to Improve With Outpatient Therapy, Need For IV Fluids, Need for Pain Control
[2020-05-07 06:35] LABS: DIRECT LDL 33 mg/dL (<100)
[2020-05-07] MEDS: HEPARIN SOD (PORCINE) 5,000 UNIT/ML 1 ML VIAL SUBCUT SCH ×3 (06:36→21:33)
[2020-05-07] MEDS: PANTOPRAZOLE SODIUM 40 MG TABLET.DR PO SCH ×2 (06:36→21:33)
[2020-05-07 06:40] LABS: FREE T3 2.18 pg/mL (2.77-5.27); HEMOGLOBIN 13.6 g/dL (12.0-15.5)
[2020-05-07 06:54] LABS: THYROID STIMULATING HORMONE 0.43 uIU/mL (0.47-4.68)
[2020-05-07] MEDS: LEVALBUTEROL HCL NEB 1.25 MG/3 ML AMPUL NEB SCH ×2 (08:04→16:48)
[2020-05-07] MEDS: IPRATROPIUM BROMIDE 0.02% NEB 0.5 MG/2.5 ML AMPUL NEB SCH ×2 (08:04→16:48)
[2020-05-07] MEDS: BUDESONIDE NEB 0.5 MG/2 ML AMPUL NEB SCH ×2 (08:04→20:22)
[2020-05-07] MEDS ORDERED: DEXTROSE 5%-NORMAL SALINE 1,000 ML IV PRN (08:26)
[2020-05-07] MEDS: MORPHINE SULFATE 10 MG/ML INJ IV PRN ×4 (08:58→21:41)
[2020-05-07] MEDS: DOCUSATE SODIUM 100 MG CAPSULE PO SCH ×2 (09:48→18:21)
--- NOTE | 2020-05-07 14:06 | PDOC PROGRESS REPORT ---
Subjective Progress Note for:: 05/07/20 Subjective:: 75 year old female who presents the emergency room with a two-week history of generalized weakness. She admits the gradual onset and progressive worsening of generalized weakness over the course of the last 2 weeks becoming severe today. Her weakness has been accompanied by a headache, episodes of rigors, urinary frequency, fatigue and malaise. Her weakness has been associated with a fall at home last night in her bathroom, in which she contused her right chest. She denies other associated or accompanying signs and symptoms. She admits prior similar episodes. She admits that 10 days ago she was seen in the emergency room and was given oral steroids for an acute exacerbation of COPD. She admits that 1 week ago she was seen by her computer systems design analyst who put her on doxycycline and Bactrim DS x7 days for an exacerbation of her COPD. She has not identified any aggravating or ameliorating factors for her generalized weakness. In the emergency room the patient was found to be mildly hypotensive and was noted to have an acute kidney injury. She was subsequently admitted hospital for further evaluation and treatment. 05/07/2020-patient is comfortably in the bed complaining of soreness in the chest she still thinks she broke the ribs. Chest x-ray negative for rib fractures. Plan is to arrange for the CT chest without contrast today. Patient also admitted with acute kidney injury kidney function improved to creatinine 1.74. Patient creatinine is 1.6 in December this year. Reason For Visit: ACUTE KIDNEY INJURY Physical Exam Vital Signs: Temp Pulse Resp BP Pulse Ox 97.8 F 89 16 112/56 L 94 05/07/20 07:52 05/07/20 08:05 05/07/20 08:05 05/07/20 07:52 05/07/20 08:05 Intake & Output 05/06/20 05/07/20 05/08/20 06:59 06:59 06:59 Intake Total 2830 1020 Balance 2830 1020 Weight 88.2 kg General appearance: PRESENT: no acute distress Head exam: PRESENT: atraumatic Eye exam: PRESENT: PERRLA Mouth exam: PRESENT: moist, tongue midline Teeth exam: PRESENT: poor dentation Neck exam: ABSENT: carotid bruit, JVD, lymphadenopathy, thyromegaly Respiratory exam: PRESENT: decreased breath sounds Cardiovascular exam: PRESENT: RRR. ABSENT: diastolic murmur, rubs, systolic murmur Vascular exam: PRESENT: normal capillary refill GI/Abdominal exam: PRESENT: normal bowel sounds, soft. ABSENT: distended, guarding, mass, organolmegaly, rebound, tenderness Rectal exam: PRESENT: deferred Extremities exam: PRESENT: full ROM. ABSENT: calf tenderness, clubbing, pedal edema Neurological exam: PRESENT: alert, awake, oriented to person, oriented to place, oriented to time, oriented to situation, CN II-XII grossly intact. ABSENT: motor sensory deficit Psychiatric exam: PRESENT: appropriate affect, normal mood. ABSENT: homicidal ideation, suicidal ideation Results Laboratory Results: 05/07/20 04:42 05/07/20 04:42 05/06/20 05/06/20 05/06/20 18:09 18:09 19:15 WBC 9.3 RBC 5.96 H Hgb 16.0 H Hct 48.6 H MCV 82 MCH 26.8 L MCHC 32.9 RDW 14.7 H Plt Count 197 Seg Neutrophils % Not Reportable Sodium 133.2 L Potassium 5.8 H Chloride 99 Carbon Dioxide 24 Anion Gap 10 BUN 49 H Creatinine 2.40 H Est GFR ( Amer) 24 L Glucose 101 Calcium 9.0 Magnesium Total Bilirubin 0.4 AST 48 H Alkaline Phosphatase 79 Total Protein 6.9 Albumin 3.8 Triglycerides Cholesterol LDL Cholesterol Direct VLDL Cholesterol HDL Cholesterol TSH Free T3 pg/mL Urine Color AIYANA Urine Appearance SLIGHTLY-CLOUDY Urine pH 5.0 Ur Specific [place] 1.018 Urine Protein 30 H Urine Glucose (UA) NEGATIVE Urine Ketones TRACE H Urine Blood NEGATIVE Urine Nitrite NEGATIVE Ur Leukocyte Esterase NEGATIVE Urine WBC (Auto) 1 Urine RBC (Auto) 3 05/07/20 05/07/20 05/07/20 04:42 04:42 04:42 WBC 5.4 RBC 5.05 Hgb 13.6 D Hct 40.7 MCV 81 MCH 26.8 L MCHC 33.3 RDW 14.6 H Plt Count 154 Seg Neutrophils % Sodium 133.3 L Potassium 5.0 Chloride 106 Carbon Dioxide 22 Anion Gap 5 BUN 40 H Creatinine 1.74 H Est GFR ( Amer) 35 L Glucose 145 H Calcium 7.9 L Magnesium 1.7 Total Bilirubin AST Alkaline Phosphatase Total Protein Albumin Triglycerides 220 H Cholesterol 104.70 LDL Cholesterol Direct 33 VLDL Cholesterol 44.0 H HDL Cholesterol 28 L TSH 0.43 L Free T3 pg/mL 2.18 L Urine Color Urine Appearance Urine pH Ur Specific [place] Urine Protein Urine Glucose (UA) Urine Ketones Urine Blood Urine Nitrite Ur Leukocyte Esterase Urine WBC (Auto) Urine RBC (Auto) 05/06/20 05/06/20 18:09 18:09 Creatine Kinase 136 H Troponin I < 0.012 Impressions: Chest X-Ray 05/06/20 17:21 IMPRESSION: 1. No significant interval changes since the prior study dated 04/28/2020. No acute pulmonary findings. Assessment and Plan - Diagnosis (1) Acute kidney injury Is this a current diagnosis for this admission?: Yes Plan: 05/07/2020-patient admitted with serum creatinine of 2.4 with IV fluids improved to 1.74. Baseline creatinine is around 1.6. Acute kidney injury most likely prerenal causes resolving. (2) Hyperkalemia Is this a current diagnosis for this admission?: Yes Plan: 05/07/2020-patient came in with serum potassium is 5.8 improved to 5.0. Hyperkalemia is resolving. Plan is to repeat the labs tomorrow. (3) Hypovolemia Is this a current diagnosis for this admission?: Yes Plan: 05/07/2020-blood pressure today's 112/56. Stable. Patient is on IV fluids at 75 cc/h. (4) Contusion of rib on right side Qualifiers: Encounter type: initial encounter Qualified Code(s): S20.211A - Contusion of right front wall of thorax, initial encounter Is this a current diagnosis for this admission?: Yes Plan: 05/07/2020-patient is given the history of fall chest x-ray ruled out rib fractures plan is to do the CT chest without contrast today for further evaluation. (5) Malaise and fatigue Is this a current diagnosis for this admission?: Yes - Plan Summary Summary: Patient will be admitted to medical floor where she will receive routine supportive and symptomatic cares. She will treated with IV fluids utilizing D5 normal saline at 167 mL/h. She will receive morphine sulfate 2 to 4 mg IV every 2 hours as needed for pain. She will receive Ativan 1 mg IV every 4 hours as needed for anxiety or restlessness. CBCs, metabolic profiles, magnesium levels and additional laboratory and/or radiographic evaluations will be obtained as appropriate. She will be on a cardiac diet. Smoking cessation is advised and counseled briefly at the bedside. Nicotine replacement patch is available for the patient's use, if desired. - Time Anticipated Discharge Disposition: Home, Self Care Anticipated Discharge Timeframe: within 48 hours
[2020-05-07] MEDS ORDERED: ALBUTEROL SULFATE HFA (90 MCG/PUFF) 8 GM MDI (1 MDI/ER DISP) IH PRN (16:12)
[2020-05-07] MEDS ORDERED: (PENDING PHARMACY ID) (Umeclidinium Brm/Vilanterol Tr [Anoro Ellipta 62.5-25 Mcg Inh] 1 PU PO SCH (19:00)
--- NOTE | 2020-05-07 21:11 | RADIOLOGY REPORT (SQ) ---
CLINICAL INDICATION: rt rib cage pain. . TECHNIQUE: Noncontrast spiral axial CT imaging was obtained of the chest with multiplanar reconstructions. This exam was performed according to our departmental dose-optimization program, which includes automated exposure control, adjustment of the mA and/or kV according to patient size and/or use of iterative reconstruction techniques. COMPARISON: 12/30/2019. CORRELATION: None. FINDINGS: The heart is prominent with coronary calcification. No pericardial effusion. No bulky mediastinal adenopathy. Shotty mediastinal lymph nodes, mildly progressive from prior. These are particularly progressive right lateral mediastinum and right hilar/perihilar. The lungs demonstrate chronic parenchymal lung changes. This is mostly interstitial change. There is superimposed acute interstitial prominence on this background of chronic change. There is also new bibasilar airspace disease right greater than left mostly atelectasis. No significant pleural fluid. No pneumothorax. Visualized abdominal contents demonstrate mild hepatic steatosis.. Visualized bones demonstrate osteoarthritis. Postsurgical change left shoulder.. IMPRESSION: Artifact from the patient's arms. Imaging is degraded by patient motion, with resultant artifact. The best possible images were obtained. Bibasilar airspace disease mostly atelectasis right greater than left. No significant pleural fluid. Mild progressive acute interstitial prominence on a background of chronic change..
[2020-05-07] MEDS ORDERED: ATORVASTATIN CALCIUM 20 MG TABLET PO SCH (22:00)
[2020-05-08] MEDS: LEVALBUTEROL HCL NEB 1.25 MG/3 ML AMPUL NEB SCH ×2 (00:42→08:16)
[2020-05-08] MEDS: IPRATROPIUM BROMIDE 0.02% NEB 0.5 MG/2.5 ML AMPUL NEB SCH ×2 (00:42→08:16)
[2020-05-08] MEDS: HEPARIN SOD (PORCINE) 5,000 UNIT/ML 1 ML VIAL SUBCUT SCH ×2 (05:04→14:00)
[2020-05-08] MEDS: PANTOPRAZOLE SODIUM 40 MG TABLET.DR PO SCH ×2 (05:04→10:07)
[2020-05-08] MEDS: ACETAMINOPHEN 325 MG TABLET PO PRN (05:04)
[2020-05-08 06:53] LABS: HEMATOCRIT 43.5 % (36.0-47.0); HEMOGLOBIN 14.2 g/dL (12.0-15.5); MEAN CORPUSCULAR HEMOGLOBIN 26.8 pg (27.0-33.4); MEAN CORPUSCULAR HGB CONC 32.6 g/dL (32.0-36.0); MEAN CORPUSCULAR VOLUME 82 fl (80-97); PLATELET COUNT 146 10^3/uL (150-450); RED BLOOD COUNT 5.29 10^6/uL (3.72-5.28); RED CELL DISTRIBUTION WIDTH 14.5 % (11.5-14.0); WHITE BLOOD COUNT 10.1 10^3/uL (4.0-10.5)
[2020-05-08 07:23] LABS: ALBUMIN 3.3 g/dL (3.5-5.0); ALKALINE PHOSPHATASE 75 U/L (38-126); ANION GAP 8 (5-19); ASPARTATE AMINO TRANSFERASE 46 U/L (14-36); BILIRUBIN,DIRECT 0.1 mg/dL (0.0-0.4); BILIRUBIN,TOTAL 0.3 mg/dL (0.2-1.3); BLOOD UREA NITROGEN 22 mg/dL (7-20); CALCIUM 8.5 mg/dL (8.4-10.2); CARBON DIOXIDE 22 mmol/L (22-30); CHLORIDE 104 mmol/L (98-107); GLUCOSE 159 mg/dL (75-110); POTASSIUM 5.1 mmol/L (3.6-5.0); TOTAL PROTEIN 6.2 g/dL (6.3-8.2)
[2020-05-08] MEDS: BUDESONIDE NEB 0.5 MG/2 ML AMPUL NEB SCH (08:16)
[2020-05-08] MEDS ORDERED: MONTELUKAST SODIUM 10 MG TABLET PO SCH (10:00)
[2020-05-08] MEDS ORDERED: SPIRONOLACTONE 25 MG TABLET PO SCH (10:00)
[2020-05-08] MEDS ORDERED: FLUTICASONE/UMECLIDIN/VILANTER 100-62.5-25 MCG/DOSE IH SCH (10:00)
[2020-05-08] MEDS ORDERED: LISINOPRIL 10 MG TABLET PO SCH (10:00)
[2020-05-08] MEDS ORDERED: AMLODIPINE BESYLATE 5 MG TABLET PO SCH (10:00)
[2020-05-08] MEDS ORDERED: CHOLECALCIFEROL (D3) 1,000 UNIT (25 MCG) TABLET PO SCH (10:00)
[2020-05-08] MEDS ORDERED: ESCITALOPRAM OXALATE 10 MG TABLET PO SCH (10:00)
[2020-05-08] MEDS ORDERED: (PENDING PHARMACY ID) (Umeclidinium Brm/Vilanterol Tr [Anoro Ellipta 62.5-25 Mcg Inh] 1 PU PO SCH (10:00)
[2020-05-08] MEDS: DOCUSATE SODIUM 100 MG CAPSULE PO SCH (10:04)
--- NOTE | 2020-05-08 11:22 | RADIOLOGY REPORT (SQ) ---
EXAM DESCRIPTION: CT HEAD WITHOUT IMAGES COMPLETED DATE/TIME: 05/08/2020 10:45 am REASON FOR STUDY: headache COMPARISON: CT of the head without contrast from 08/06/2018. TECHNIQUE: Axial images acquired through the brain without intravenous contrast. Images reviewed wi th bone, brain and subdural windows. Additional sagittal and coronal reconstructions were generated. Images stored on PACS. All CT scanners at this facility use dose modulation, iterative reconstruction, and/or weight based d osing when appropriate to reduce radiation dose to as low as reasonably achievable (ALARA). [facility]: Dose Right [facility]: CareDose [facility]: Dose Right [facility]: Teradose 4D [facility]: Geostellar RADIATION DOSE: CT Rad equipment meets quality standard of care and radiation dose reduction techniq ues were employed. CTDIvol: 48.6 mGy. DLP: 930 mGy-cm. LIMITATIONS: None. FINDINGS: There is no acute intracranial hemorrhage, vascular territorial infarct, extra-axial fluid collection, mass effect or midline shift. The simpson-white matter differentiation is preserved. The caliber of the ventricles is concordant with the degree of sulcation. There is no effacement of the cerebral sulci or basal subarachnoid cisterns. The globes are aphakic. The orbits are intact. The paranasal sinuses are clear. There is no fractu re of the calvarium. IMPRESSION: No acute intracranial abnormality. EVIDENCE OF ACUTE STROKE: NO. COMMENT: Quality ID # [id number]: Final reports with documentation of one or more dose reduction techniques (e.g., Automated exposure control, adjustment of the mA and/or kV according to patient size, use of iterative reconstruction technique) TECHNICAL DOCUMENTATION: JOB ID: [id number] 2010 [employer]- All Rights Reserved Reading location - IP/workstation name: [email or web address]
--- NOTE | 2020-05-08 13:43 | PDOC DISCHARGE SUMMARY ---
Impression - Admit/DC Date/PCP Admission Date/Primary Care Provider: 05/06/20 20:30 SYLVIA MENDIETA MD Discharge Date: 05/08/20 - Discharge Diagnosis (1) Acute kidney injury Is this a current diagnosis for this admission?: Yes (2) Hyperkalemia Is this a current diagnosis for this admission?: Yes (3) Hypovolemia Is this a current diagnosis for this admission?: Yes (4) Contusion of rib on right side Is this a current diagnosis for this admission?: Yes (5) Malaise and fatigue Is this a current diagnosis for this admission?: Yes - Assessment Summary: (1) Acute kidney injury Is this a current diagnosis for this admission?: Yes Plan: 05/07/2020-patient admitted with serum creatinine of 2.4 with IV fluids improved to 1.74. Baseline creatinine is around 1.6. Acute kidney injury most likely prerenal causes resolving. 05/08/2020-on admission serum creatinine is 2.4. Today it is 1.04 acute kidney injury due to prerenal causes resolved. (2) Hyperkalemia Is this a current diagnosis for this admission?: Yes Plan: 05/07/2020-patient came in with serum potassium is 5.8 improved to 5.0. Hyperkalemia is resolving. Plan is to repeat the labs tomorrow. 05/08/2020-serum potassium is 5.1. Hyperkalemia resolved. (3) Hypovolemia Is this a current diagnosis for this admission?: Yes Plan: 05/07/2020-blood pressure today's 112/56. Stable. Patient is on IV fluids at 75 cc/h. 05/08/2020-blood pressure is 150/60 IV fluids are discontinued. (4) Contusion of rib on right side Qualifiers: Encounter type: initial encounter Qualified Code(s): S20.211A - Contusion of right front wall of thorax, initial encounter Is this a current diagnosis for this admission?: Yes Plan: 05/07/2020-patient is given the history of fall chest x-ray ruled out rib fractures plan is to do the CT chest without contrast today for further evaluation. (5) Malaise and fatigue Is this a current diagnosis for this admission?: Yes - Additional Information Resuscitation Status: Full Code Discharge Diet: Cardiac Discharge Activity: Activity As Tolerated Referrals: ORESTES TORRES PA [NO LOCAL MD] - Follow up as needed (THE OFFICE WILL CONTACT THE PATIENT WITH A FOLLOW UP APPT) Home Medications: Albuterol Sulfate [Ventolin Hfa 8 gm Mdi (1 Mdi/ER Disp)] 2 puff IH Q6H PRN 08/14/18 Omeprazole 40 mg PO BID 08/14/18 Rosuvastatin Calcium [Crestor 10 mg Tablet] 10 mg PO DAILY 08/14/18 Escitalopram Oxalate [Lexapro 10 mg Tablet] 20 mg PO DAILY 08/17/18 Prednisone [Deltasone 10 mg Tablet] 10 mg PO ASDIR PRN #21 tablet 04/28/20 Amlodipine Besylate [Norvasc 5 mg Tablet] 5 mg PO DAILY 05/07/20 Cholecalciferol (Vitamin D3) [Vitamin D3 1000 Unit Tablet] 1,000 unit PO DAILY 05/07/20 Fluticasone/Umeclidin/Vilanter [Trelegy 100-62.5-25 Mcg Ellipta 14 Dose/Dpi] 1 puff IH DAILY 05/07/20 Spironolactone [Aldactone 25 mg Tablet] 12.5 mg PO DAILY 05/07/20 Umeclidinium Brm/Vilanterol Tr [Anoro Ellipta 62.5-25 Mcg INH] 1 puff PO DAILY 05/07/20 History of Present Illiness History of Present Illness: OLIVE BRADEN is a 75 year old female 75 year old female who presents the emergency room with a two-week history of generalized weakness. She admits the gradual onset and progressive worsening of generalized weakness over the course of the last 2 weeks becoming severe today. Her weakness has been accompanied by a headache, episodes of rigors, urinary frequency, fatigue and malaise. Her weakness has been associated with a fall at home last night in her bathroom, in which she contused her right chest. She denies other associated or accompanying signs and symptoms. She admits prior similar episodes. She admits that 10 days ago she was seen in the emergency room and was given oral steroids for an acute exacerbation of COPD. She admits that 1 week ago she was seen by her secret service agent who put her on doxycycline and Bactrim DS x7 days for an exacerbation of her COPD. She has not identified any aggravating or ameliorating factors for her generalized weakness. In the emergency room the patient was found to be mildly hypotensive and was noted to have an acute kidney injury. She was subsequently admitted hospital for further evaluation and treatment. Hospital Course Hospital Course: 75 year old female who presents the emergency room with a two-week history of generalized weakness. She admits the gradual onset and progressive worsening of generalized weakness over the course of the last 2 weeks becoming severe today. Her weakness has been accompanied by a headache, episodes of rigors, urinary frequency, fatigue and malaise. Her weakness has been associated with a fall at home last night in her bathroom, in which she contused her right chest. She denies other associated or accompanying signs and symptoms. She admits prior similar episodes. She admits that 10 days ago she was seen in the emergency yasmin and was given oral steroids for an acute exacerbation of COPD. She admits that 1 week ago she was seen by her secret service agent who put her on doxycycline and Bactrim DS x7 days for an exacerbation of her COPD. She has not identified any aggravating or ameliorating factors for her generalized weakness. In the emergency room the patient was found to be mildly hypotensive and was noted to have an acute kidney injury. She was subsequently admitted hospital for further evaluation and treatment. 05/07/2020-patient is comfortably in the bed complaining of soreness in the chest she still thinks she broke the ribs. Chest x-ray negative for rib fractures. Plan is to arrange for the CT chest without contrast today. Patient also admitted with acute kidney injury kidney function improved to creatinine 1.74. Patient creatinine is 1.6 in December this year. 05/08/[birth year]55-89-vdvn-old female admitted with a fall and she refused physical therapy. Complaining of right-sided rib cage pain CT chest is negative for any fractures. She is also complaining of headache this morning CT head is negative for acute pathology. Admitted with acute kidney injury which was resolved latest creatinine is 1.04. Physical Exam Vital Signs: Temp Pulse Resp BP Pulse Ox 97.6 F 79 20 109/43 L 94 05/08/20 08:39 05/08/20 08:39 05/08/20 08:39 05/08/20 08:39 05/08/20 08:39 Intake & Output 05/07/20 05/08/20 05/09/20 06:59 06:59 06:59 Intake Total 2830 2130 Balance 2830 2130 Weight 88.2 kg 88.2 kg General appearance: PRESENT: no acute distress, obese Head exam: PRESENT: atraumatic Eye exam: PRESENT: PERRLA Mouth exam: PRESENT: neck supple Teeth exam: PRESENT: poor dentation Neck exam: ABSENT: carotid bruit, JVD, lymphadenopathy, thyromegaly Respiratory exam: PRESENT: decreased breath sounds Cardiovascular exam: PRESENT: RRR. ABSENT: diastolic murmur, rubs, systolic murmur GI/Abdominal exam: PRESENT: normal bowel sounds, soft. ABSENT: distended, guarding, mass, organolmegaly, rebound, tenderness Rectal exam: PRESENT: deferred Extremities exam: PRESENT: full ROM. ABSENT: calf tenderness, clubbing, pedal edema Neurological exam: PRESENT: alert, awake, oriented to person, oriented to place, oriented to time, oriented to situation, CN II-XII grossly intact. ABSENT: motor sensory deficit Psychiatric exam: PRESENT: appropriate affect, normal mood. ABSENT: homicidal ideation, suicidal ideation Results Laboratory Results: WBC 10.1 10^3/uL (4.0-10.5) 05/08/20 05:51 RBC 5.29 10^6/uL (3.72-5.28) H 05/08/20 05:51 Hgb 14.2 g/dL (12.0-15.5) 05/08/20 05:51 Hct 43.5 % (36.0-47.0) 05/08/20 05:51 MCV 82 fl (80-97) 05/08/20 05:51 MCH 26.8 pg (27.0-33.4) L 05/08/20 05:51 MCHC 32.6 g/dL (32.0-36.0) 05/08/20 05:51 RDW 14.5 % (11.5-14.0) H 05/08/20 05:51 Plt Count 146 10^3/uL (150-450) L 05/08/20 05:51 Lymph % (Auto) Not Reportable 05/06/20 18:09 Blount % (Auto) Not Reportable 05/06/20 18:09 Eos % (Auto) Not Reportable 05/06/20 18:09 Baso % (Auto) Not Reportable 05/06/20 18:09 Absolute Neuts (auto) Not Reportable 05/06/20 18:09 Absolute Lymphs (auto) Not Reportable 05/06/20 18:09 Absolute Monos (auto) Not Reportable 05/06/20 18:09 Absolute Eos (auto) Not Reportable 05/06/20 18:09 Absolute Basos (auto) Not Reportable 05/06/20 18:09 Total Counted 100 05/06/20 18:09 Seg Neutrophils % Not Reportable 05/06/20 18:09 Seg Neuts % (Manual) 80 % (42-78) H 05/06/20 18:09 Band Neutrophils % 3 % (3-5) 05/06/20 18:09 Lymphocytes % (Manual) 12 % (13-45) L 05/06/20 18:09 Atypical Lymphs % 2 % (0) 05/06/20 18:09 Monocytes % (Manual) 2 % (3-13) L 05/06/20 18:09 Eosinophils % (Manual) 1 % (0-6) 05/06/20 18:09 Basophils % (Manual) 0 % (0-2) 05/06/20 18:09 Abs Neuts (Manual) 7.7 10^3/uL (1.7-8.2) 05/06/20 18:09 Abs Lymphs (Manual) 1.3 10^3/uL (0.5-4.7) 05/06/20 18:09 Abs Monocytes (Manual) 0.2 10^3/uL (0.1-1.4) 05/06/20 18:09 Absolute Eos (Manual) 0.1 10^3/uL (0.0-0.6) 05/06/20 18:09 Abs Basophils (Manual) 0.0 10^3/uL (0.0-0.2) 05/06/20 18:09 Toxic Vacuolation PRESENT 05/06/20 18:09 Platelet Comment ADEQUATE 05/06/20 18:09 Hypochromasia SLIGHT 05/06/20 18:09 Anisocytosis SLIGHT 05/06/20 18:09 Target Cells SLIGHT 05/06/20 18:09 Schistocytes SLIGHT 05/06/20 18:09 Sodium 133.8 mmol/L (137-145) L 05/08/20 05:51 Potassium 5.1 mmol/L (3.6-5.0) H 05/08/20 05:51 Chloride 104 mmol/L (98-107) 05/08/20 05:51 Carbon Dioxide 22 mmol/L (22-30) 05/08/20 05:51 Anion Gap 8 (5-19) 05/08/20 05:51 BUN 22 mg/dL (7-20) H 05/08/20 05:51 Creatinine 1.04 mg/dL (0.52-1.25) 05/08/20 05:51 Est GFR ( Amer) > 60 (>60) 05/08/20 05:51 Est GFR (MDRD) Non-Af 52 (>60) L 05/08/20 05:51 Glucose 159 mg/dL (75-110) H 05/08/20 05:51 Calcium 8.5 mg/dL (8.4-10.2) 05/08/20 05:51 Magnesium 1.6 mg/dL (1.6-2.3) 05/08/20 05:51 Total Bilirubin 0.3 mg/dL (0.2-1.3) 05/08/20 05:51 Direct Bilirubin 0.1 mg/dL (0.0-0.4) 05/08/20 05:51 Neonat Total Bilirubin Not Reportable 05/08/20 05:51 Neonat Direct Bilirubin Not Reportable 05/08/20 05:51 Neonat Indirect Bili Not Reportable 05/08/20 05:51 AST 46 U/L (14-36) H 05/08/20 05:51 ALT 54 U/L (<35) H 05/08/20 05:51 Alkaline Phosphatase 75 U/L (38-126) 05/08/20 05:51 Creatine Kinase 136 U/L (30-135) H 05/06/20 18:09 Troponin I < 0.012 ng/mL 05/06/20 18:09 Total Protein 6.2 g/dL (6.3-8.2) L 05/08/20 05:51 Albumin 3.3 g/dL (3.5-5.0) L 05/08/20 05:51 Triglycerides 220 mg/dL (<150) H 05/07/20 04:42 Cholesterol 104.70 mg/dL (0-200) 05/07/20 04:42 LDL Cholesterol Direct 33 mg/dL (<100) 05/07/20 04:42 VLDL Cholesterol 44.0 mg/dL (10-31) H 05/07/20 04:42 HDL Cholesterol 28 mg/dL (>40) L 05/07/20 04:42 TSH 0.43 uIU/mL (0.47-4.68) L 05/07/20 04:42 Free T3 pg/mL 2.18 pg/mL (2.77-5.27) L 05/07/20 04:42 Urine Color AIYANA 05/06/20 19:15 Urine Appearance SLIGHTLY-CLOUDY 05/06/20 19:15 Urine pH 5.0 (5.0-9.0) 05/06/20 19:15 Ur Specific Clubb 1.018 05/06/20 19:15 Urine Protein 30 mg/dL (NEGATIVE) H 05/06/20 19:15 Urine Glucose (UA) NEGATIVE mg/dL (NEGATIVE) 05/06/20 19:15 Urine Ketones TRACE mg/dL (NEGATIVE) H 05/06/20 19:15 Urine Blood NEGATIVE (NEGATIVE) 05/06/20 19:15 Urine Nitrite NEGATIVE (NEGATIVE) 05/06/20 19:15 Urine Bilirubin NEGATIVE (NEGATIVE) 05/06/20 19:15 Urine Urobilinogen NEGATIVE mg/dL (<2.0) 05/06/20 19:15 Ur Leukocyte Esterase NEGATIVE (NEGATIVE) 05/06/20 19:15 Urine WBC (Auto) 1 /HPF 05/06/20 19:15 Urine RBC (Auto) 3 /HPF 05/06/20 19:15 U Hyaline Cast (Auto) 17 /LPF 05/06/20 19:15 Squamous Epi Cells Auto 1 /HPF 05/06/20 19:15 Urine Mucus (Auto) OCC /LPF 05/06/20 19:15 Urine Ascorbic Acid NEGATIVE (NEGATIVE) 05/06/20 19:15 SARS-CoV-2 (PCR) NEGATIVE (NEGATIVE) 05/06/20 19:56 05/06/20 18:09 Troponin I < 0.012 Impressions: Chest X-Ray 05/06/20 17:21 IMPRESSION: 1. No significant interval changes since the prior study dated 04/28/2020. No acute pulmonary findings. Chest CT 05/07/20 00:00 IMPRESSION: Artifact from the patient's arms. Imaging is degraded by patient motion, with resultant artifact. The best possible images were obtained. Bibasilar airspace disease mostly atelectasis right greater than left. No significant pleural fluid. Mild progressive acute interstitial prominence on a background of chronic change.. Head CT 05/08/20 00:00 IMPRESSION: No acute intracranial abnormality. EVIDENCE OF ACUTE STROKE: NO. Plan Plan of Treatment: Patient is advised about compliance with medications and advised to hold her lisinopril at this time until she sees her primary care physician next week. Stroke Is this a Stroke Patient?: No Acute Heart Failure - Is this a Heart Failure Patient?: No
[2020-05-08 15:36] VITALS: BP 109/45
== END 2020-05-08 15:35 | disposition home or self-care (01) | DRG 684 ==
LOC: ER 14:40 → EH 20:30 → 4N 05-07 00:20
PROVIDERS: ADMIT Emergency Medicine; ATTEND Internal Medicine
DX: N17.9 Acute kidney failure, unspecified (principal); E86.0 Dehydration; I95.9 Hypotension, unspecified; E87.5 Hyperkalemia; F17.210 Nicotine dependence, cigarettes, uncomplicated; I10 Essential (primary) hypertension; J44.9 Chronic obstructive pulmonary disease, unspecified; M19.90 Unspecified osteoarthritis, unspecified site; F32.9 Major depressive disorder, single episode, unspecified; E66.9 Obesity, unspecified; K21.9 Gastro-esophageal reflux disease without esophagitis; Z96.612 Presence of left artificial shoulder joint; E86.1 Hypovolemia; S20.211A Contusion of right front wall of thorax, initial encounter; R53.83 Other fatigue; Z20.828 Contact with and (suspected) exposure to other viral communicable diseases; Z90.710 Acquired absence of both cervix and uterus; Z88.0 Allergy status to penicillin; Z88.2 Allergy status to sulfonamides; Z88.8 Allergy status to other drugs, medicaments and biological substances; Z88.7 Allergy status to serum and vaccine; Z82.49 Family history of ischemic heart disease and other diseases of the circulatory system; Z82.61 Family history of arthritis; W18.30XA Fall on same level, unspecified, initial encounter; Y92.002 Bathroom of unspecified non-institutional (private) residence as the place of occurrence of the external cause
CPT/HCPCS: 36415; 70450; 71045; 71250; 80048; 80053; 80061; 81001; 82550; 83735; 84443; 84481; 84484; 85025; 85027; 87635; 93005; 93010; 99285; C9803; J2270; J3490; J7030; J7042

== ENCOUNTER 2020-05-19 12:44 | Emergency (ER) | payer MEDICARE ==
[2020-05-19] MEDS ORDERED: METHYLPREDNISOLONE INJ 125 MG/2 ML SDV IV ONE (12:48)
[2020-05-19] MEDS ORDERED: EPINEPHRINE INJ/PF 1 MG/1 ML AMPULE IM ONE (12:48)
[2020-05-19] MEDS ORDERED: FAMOTIDINE INJ/PF 20 MG/2 ML SDV IV ONE (12:48)
[2020-05-19] MEDS ORDERED: DIPHENHYDRAMINE HCL 50 MG/ML VIAL IV ONE (12:48)
--- NOTE | 2020-05-19 12:50 | ER Document Report ---
ED Medical Screen (RME) - General Chief Complaint: Allergic Reaction Stated Complaint: ALLERGIC REACTION Time Seen by Provider: 05/19/20 12:46 Primary Care Provider: SYLVIA MENDIETA MD [Primary Care Provider] - Follow up as needed Mode of Arrival: Wheelchair Information source: Patient Notes: 75-year-old female patient presenting to the emergency department with an acute allergic reaction. Patient reports last night she started having hives and itching all over her body. Today she states that her throat feels like it is getting tight and her lips are swelling. She does not know what causes this. Patient is very anxious, she does have swelling to her lips upper and lower mostly on the left side. There is no obvious tongue swelling. She is maintaining her airway at this time. She will be taken immediately to a room. She also has hives scattered across her upper arms, torso and neck. Patient reports she has had anaphylaxis in the past however it was many years ago. I have greeted and performed a rapid initial assessment of this patient. A comprehensive ED assessment and evaluation of the patient, analysis of test results and completion of the medical decision making process will be conducted by additional ED providers. I have specifically instructed the patient or family members with the patient to immediately return to any nursing staff should anything change in the patient's condition or with their chief complaint. TRAVEL OUTSIDE OF THE [place] IN LAST 30 DAYS: No - Related Data Allergies/Adverse Reactions: denosumab [From Prolia] Allergy (Verified 04/28/20 03:02) Penicillins Allergy (Verified 04/28/20 03:02) Generalized rash Sulfa (Sulfonamide Antibiotics) Allergy (Verified 04/28/20 03:02) Tetanus Vaccines and Toxoid Allergy (Verified 04/28/20 03:02) swelling at site Past Medical History - Past Medical History Cardiac Medical History: Reports: Hx Hypercholesterolemia, Hx Hypertension Denies: Hx Atrial Fibrillation, Hx Congestive Heart Failure, Hx Coronary Artery Disease, Hx DVT, Hx Heart Attack, Hx Pulmonary Embolism Pulmonary Medical History: Reports: Hx Asthma, Hx COPD, Hx Pneumonia, Hx Respiratory Failure Neurological Medical History: Denies: Hx Cerebrovascular Accident, Hx Seizures Endocrine Medical History: Denies: Hx Diabetes Mellitus Type 1, Hx Diabetes Mellitus Type 2, Hx Hyperthyroidism, Hx Hypothyroidism Renal/ Medical History: Denies: Hx Peritoneal Dialysis GI Medical History: Reports: Hx Gastroesophageal Reflux Disease. Denies: Hx Cirrhosis, Hx Crohn's Disease, Hx Hepatitis, Hx Hiatal Hernia, Hx Ulcer, Hx Ulcerative Colitis Musculoskeltal Medical History: Reports Hx Arthritis, Denies Hx Gout Skin Medical History: Denies Hx Eczema, Denies Hx Psoriasis Psychiatric Medical History: Reports: Hx Depression Infectious Medical History: Denies: Hx Hepatitis, Hx HIV Past Surgical History: Reports: Hx Section, Hx Genitourinary Surgery - bladder sling, Hx Hysterectomy, Hx Orthopedic Surgery - Left total shoulder replacement, right rotator cuff repair, Other - Bladder sling, colonoscopy with biopsy, bilateral cataract surgery. Denies: Hx Mastectomy, Hx Open Heart Surgery, Hx Pacemaker Doctor's Discharge - Discharge Referrals: SYLVIA MENDIETA MD [Primary Care Provider] - Follow up as needed
--- NOTE | 2020-05-19 13:37 | ER Document Report ---
ED General - General Chief Complaint: Allergic Reaction Stated Complaint: ALLERGIC REACTION Time Seen by Provider: 05/19/20 12:46 Primary Care Provider: SYLVIA MENDIETA MD [Primary Care Provider] - Follow up as needed Mode of Arrival: Wheelchair TRAVEL OUTSIDE OF THE [place] IN LAST 30 DAYS: No - HPI Notes: Patient is a 75-year-old female who presents to the emergency department for evaluation of hives, facial swelling, and the sensation that her throat is tight. She states she started last night with hives. She took some Benadryl. She denies any new exposures to her knowledge. She is unsure to what she might be reacting. She states this morning she developed lip swelling, and then a sensation of her throat tightening. She denies any shortness of breath. She is able to handle her secretions per her report. - Related Data Allergies/Adverse Reactions: denosumab [From Prolia] Allergy (Verified 04/28/20 03:02) Penicillins Allergy (Verified 04/28/20 03:02) Generalized rash Sulfa (Sulfonamide Antibiotics) Allergy (Verified 04/28/20 03:02) Tetanus Vaccines and Toxoid Allergy (Verified 04/28/20 03:02) swelling at site Past Medical History - General Information source: Patient - Social History Smoking Status: Current Every Day Smoker Family History: Arthritis, CAD. denies: DM, Hypertension, Malignancy - Past Medical History Cardiac Medical History: Reports: Hx Hypercholesterolemia, Hx Hypertension Denies: Hx Atrial Fibrillation, Hx Congestive Heart Failure, Hx Coronary Artery Disease, Hx DVT, Hx Heart Attack, Hx Pulmonary Embolism Pulmonary Medical History: Reports: Hx Asthma, Hx COPD, Hx Pneumonia, Hx Respiratory Failure Neurological Medical History: Denies: Hx Cerebrovascular Accident, Hx Seizures Endocrine Medical History: Denies: Hx Diabetes Mellitus Type 1, Hx Diabetes Mellitus Type 2, Hx Hyperthyroidism, Hx Hypothyroidism Renal/ Medical History: Denies: Hx Peritoneal Dialysis GI Medical History: Reports: Hx Gastroesophageal Reflux Disease. Denies: Hx Cirrhosis, Hx Crohn's Disease, Hx Hepatitis, Hx Hiatal Hernia, Hx Ulcer, Hx Ulcerative Colitis Musculoskeletal Medical History: Reports Hx Arthritis, Denies Hx Gout Skin Medical History: Denies Hx Eczema, Denies Hx Psoriasis Psychiatric Medical History: Reports: Hx Depression Infectious Medical History: Denies: Hx Hepatitis, Hx HIV Past Surgical History: Reports: Hx Section, Hx Genitourinary Surgery - bladder sling, Hx Hysterectomy, Hx Orthopedic Surgery - Left total shoulder replacement, right rotator cuff repair, Other - Bladder sling, colonoscopy with biopsy, bilateral cataract surgery. Denies: Hx Mastectomy, Hx Open Heart Surgery, Hx Pacemaker - Immunizations Hx Pneumococcal Vaccination: 09/27/15 Review of Systems - Review of Systems Constitutional: No symptoms reported EENT: See HPI Cardiovascular: No symptoms reported Respiratory: No symptoms reported Gastrointestinal: No symptoms reported Genitourinary: No symptoms reported Musculoskeletal: No symptoms reported Skin: See HPI Neurological/Psychological: No symptoms reported Physical Exam - Vital signs Vitals: Pulse Ox 98 05/19/20 12:48 - Notes Notes: This is a 75-year-old anxious appearing female, who appears her stated age, in a mild to moderate distress. Vital signs reviewed, please refer to chart. Head is normocephalic, atraumatic. Pupils equal round, reactive to light. She has a moderate amount of lip edema, worse on the left lower lip. No tongue edema, no posterior pharyngeal edema appreciated. No stridor. Neck is supple without meningismus. Heart is regular rate and rhythm. Lungs are clear to auscultation bilaterally. Abdomen is soft, nontender, normoactive bowel sounds throughout. Extremities without cyanosis, clubbing. Posterior calves are nontender. Peripheral pulses are equal. Skin is warm and dry. She has scattered urticaria over the forehead, hairline, anterior neck, anterior chest, back, and scattered of her bilateral extremities. It is worse in areas of warmth, including the axilla, popliteal fossa, antecubital fossa. Patient is awake, alert, neurological exam is nonfocal. Course - Re-evaluation Re-evalutation: 05/19/20 13:36 Patient presents to the emergency department for evaluation. She is complaining of hives and lip edema. She has sensation that her lip is closing. By definition this is anaphylaxis. Patient was ministered epinephrine IM. She was given Solu-Medrol, Pepcid, Benadryl. She is placed on a playground monitor. Currently stable, we will continue to monitor for several hours, particularly since we do not have a clear etiology to her at this patient's symptoms. 05/19/20 16:42 Patient states she still has some itching on her scalp, but facial swelling is improved remarkably. She no longer is covered in urticaria. Given the fact that I do not know what caused this anaphylactic reaction, I will ahead and send her home with steroids as well as an epinephrine pen. She is told to take antihistamines, other sedating or nonsedating, as needed for symptoms, and return to the ED should her swelling return, should she develop any difficulty breathing or swallowing, or certainly if she needs to use her EpiPen. She voiced understanding to this. Otherwise she has a follow-up appoint with her primary care provider already on Wednesday. - Vital Signs Vital signs: Temp Pulse Resp BP Pulse Ox 97.9 F 126 H 24 H 127/59 H 95 05/19/20 13:25 05/19/20 12:58 05/19/20 16:01 05/19/20 16:01 05/19/20 16:01 Discharge - Discharge Clinical Impression: Anaphylaxis Qualifiers: Encounter type: initial encounter Qualified Code(s): T78.2XXA - Anaphylactic shock, unspecified, initial encounter Condition: Stable Disposition: HOME, SELF-CARE Instructions: Acute Allergic Reaction ([facility]), Anaphylaxis Kit ([facility]) Additional Instructions: Take prednisone as directed until it is gone. Carry EpiPen with you. Antihistamines, like Benadryl or Claritin, as needed for itching. Follow-up with your primary care provider on Wednesday. Return to the emergency department with worsening or new concerning symptoms of any sort. Referrals: SYLVIA MENDIETA MD [Primary Care Provider] - Follow up as needed
[2020-05-19 17:05] VITALS: BP 115/61
== END 2020-05-19 17:22 | disposition home or self-care (01) ==
LOC: ER 12:44
DX: T78.2XXA Anaphylactic shock, unspecified, initial encounter (principal); L50.9 Urticaria, unspecified; R22.0 Localized swelling, mass and lump, head; Z88.0 Allergy status to penicillin; Z88.2 Allergy status to sulfonamides; Z88.8 Allergy status to other drugs, medicaments and biological substances; F17.200 Nicotine dependence, unspecified, uncomplicated; I10 Essential (primary) hypertension; J44.9 Chronic obstructive pulmonary disease, unspecified
CPT/HCPCS: 99284; 96372; 96374; 96375; J1200; J0171; J2930; S0028

== ENCOUNTER 2020-05-20 02:46 | Emergency (ER) | payer MEDICARE ==
[2020-05-20] MEDS ORDERED: EPINEPHRINE INJ/PF 1 MG/1 ML AMPULE IM ONE (03:17)
[2020-05-20] MEDS ORDERED: FAMOTIDINE INJ/PF 20 MG/2 ML SDV IV ONE ×2 (03:17→15:24)
[2020-05-20] MEDS ORDERED: METHYLPREDNISOLONE INJ 125 MG/2 ML SDV IV ONE (03:17)
[2020-05-20] MEDS ORDERED: DIPHENHYDRAMINE HCL 50 MG/ML VIAL IV ONE ×2 (03:17→10:03)
[2020-05-20] MEDS ORDERED: ALBUTEROL SULFATE 0.083% NEB 2.5 MG/3 ML AMPUL NEB ONE (03:18)
--- NOTE | 2020-05-20 03:55 | ER Document Report ---
ED Allergic Reaction - General TRAVEL OUTSIDE OF THE [place] IN LAST 30 DAYS: No <WERNER RODRIGUEZ - Last Filed: 05/20/20 08:27> <DEV NUNEZ - Last Filed: 05/20/20 18:57> - General Chief Complaint: Allergic Reaction Stated Complaint: ALLERGIC REACTION Primary Care Provider: ANDRADE SANTA MD [ACTIVE STAFF] - Follow up as needed SYLVIA MENDIETA MD [Primary Care Provider] - Follow up tomorrow Notes: Patient is a 75-year-old female that comes emergency department for chief co mplaint of developing an itchy rash over her body mainly on her back and arms that looks like hives and patient states she has the sensation that her throat is starting to swell. She states that she was here yesterday for the same symptoms, she was given epinephrine, antihistamines, and she was prescribed a steroid and epinephrine. She states that she did take her steroid but when she started having symptoms she was not sure how to take her pen so she has not taken this yet. Patient denies chest pain, difficulty breathing, any other swelling locations, or any other complaints. Patient has a history of COPD. (WERNER RODRIGUEZ) - Related Data Allergies/Adverse Reactions: denosumab [From Prolia] Allergy (Verified 04/28/20 03:02) Penicillins Allergy (Verified 05/20/20 02:55) Generalized rash Sulfa (Sulfonamide Antibiotics) Allergy (Verified 05/20/20 02:55) Tetanus Vaccines and Toxoid Allergy (Verified 05/20/20 02:55) swelling at site Past Medical History - General Information source: Patient - Social History Smoking Status: Current Every Day Smoker Frequency of alcohol use: None Drug Abuse: None Lives with: Alone Family History: Arthritis, CAD. denies: DM, Hypertension, Malignancy Patient has homicidal ideation: No - Past Medical History Cardiac Medical History: Reports: Hx Hypercholesterolemia, Hx Hypertension Denies: Hx Atrial Fibrillation, Hx Congestive Heart Failure, Hx Coronary Artery Disease, Hx DVT, Hx Heart Attack, Hx Pulmonary Embolism Pulmonary Medical History: Reports: Hx Asthma, Hx COPD, Hx Pneumonia, Hx Respiratory Failure Neurological Medical History: Denies: Hx Cerebrovascular Accident, Hx Seizures Endocrine Medical History: Denies: Hx Diabetes Mellitus Type 1, Hx Diabetes Mellitus Type 2, Hx Hyperthyroidism, Hx Hypothyroidism Renal/ Medical History: Denies: Hx Peritoneal Dialysis GI Medical History: Reports: Hx Gastroesophageal Reflux Disease. Denies: Hx Cirrhosis, Hx Crohn's Disease, Hx Hepatitis, Hx Hiatal Hernia, Hx Ulcer, Hx Ulcerative Colitis Musculoskeletal Medical History: Reports Hx Arthritis, Denies Hx Gout Skin Medical History: Denies Hx Eczema, Denies Hx Psoriasis Psychiatric Medical History: Reports: Hx Depression Infectious Medical History: Denies: Hx Hepatitis, Hx HIV Past Surgical History: Reports: Hx Section, Hx Genitourinary Surgery - bladder sling, Hx Hysterectomy, Hx Orthopedic Surgery - Left total shoulder replacement, right rotator cuff repair, Other - Bladder sling, colonoscopy with biopsy, bilateral cataract surgery. Denies: Hx Mastectomy, Hx Open Heart Surgery, Hx Pacemaker - Immunizations Hx Pneumococcal Vaccination: 09/27/15 <WERNER RODRIGUEZ - Last Filed: 05/20/20 08:27> Review of Systems - Review of Systems Constitutional: No symptoms reported EENT: See HPI Cardiovascular: No symptoms reported Respiratory: No symptoms reported Gastrointestinal: No symptoms reported Genitourinary: No symptoms reported Female Genitourinary: No symptoms reported Musculoskeletal: No symptoms reported Skin: See HPI Hematologic/Lymphatic: No symptoms reported Neurological/Psychological: See HPI <WERNER RODRIGUEZ - Last Filed: 05/20/20 08:27> Physical Exam <WERNER RODRIGUEZ Filed: 05/20/20 08:27> - Vital signs Vitals: Temp Pulse Resp BP Pulse Ox 0 F L 125 H 18 157/73 H 95 05/20/20 02:50 05/20/20 02:50 05/20/20 02:50 05/20/20 02:50 05/20/20 02:50 - Notes Notes: GENERAL: Alert, does not appear to be in distress but does appear to be anxious HEAD: Normocephalic, atraumatic. EYES: Pupils equal, round, and reactive to light. Extraocular movements intact. ENT: Oral mucosa moist, tongue midline. Oropharynx unremarkable. Airway patent, uvula unremarkable. Nares patent. Speaks in a normal voice. NECK: Full range of motion. Supple. Trachea midline. No lymphadenopathy. LUNGS: Clear to auscultation bilaterally, no wheezes, rales, or rhonchi. No respiratory distress. HEART: Borderline tachycardic, normal rhythm, no murmur EXTREMITIES: Moves all 4 extremities spontaneously. No edema, normal radial and dorsalis pedis pulses bilaterally. No cyanosis. BACK: no cervical, thoracic, lumbar midline tenderness. No saddle anesthesia, normal distal neurovascular exam. NEUROLOGICAL: Alert and oriented x3. Normal speech. Cranial nerves II through XII grossly intact. Strength 5/5 in all extremities. PSYCH: Anxious SKIN: Scattered urticaria over the left mid to upper back, neck, and also over the posterior arms. Slight urticaria over the forearms. (WERNER RODRIGUEZ) Course <WERNER RODRIGUEZ - Last Filed: 05/20/20 08:27> - Laboratory Result Diagrams: 05/20/20 08:52 05/20/20 08:52 - Diagnostic Test Radiology reviewed: Reports reviewed <DEV NUNEZ - Last Filed: 05/20/20 18:57> - Re-evaluation Re-evalutation: Patient with hives on my evaluation, patient reports sensation of swelling in the back of her throat. Uvula appears normal, posterior pharynx appears normal, I do not hear any wheezing. However because of patient's return symptoms and apparently worse anaphylaxis symptoms yesterday patient was treated again with Benadryl, Pepcid, Solu-Medrol, and epinephrine. Patient placed on monitor. 05/20/20 On reevaluation rash is almost completely resolved after just a few minutes, patient is not complaining of any throat tightness, symptoms appear to have resolved. However patient is now jittery and anxious. She will be closely reevaluated. 05/20/20 Patient complaining of wheezing, patient with an occasional mild cough, has chronic COPD, she was given a breathing treatment although I did not hear any significant wheezing. She does not have any hoarseness. Rash has not returned. Patient continues to be restless and anxious. She is asking for something for her restless legs. She was given a very small dose of Ativan. 05/20/20 Patient reevaluated again she is sleeping and easily aroused, no signs of decompensation. Patient is still very shaky when she arouses and attempts to move. She states that she wants to stay for "a long time". She is still very shaky from her medications, patient will continue to be observed. 05/20/20 08:20 Patient is much calmer now, much improved in appearance, she is relaxed and on reevaluation she expresses that she was hoping that in addition to her treatment today that she could also get labs done, she states she did not get these yesterday, she states that after she was admitted to the hospital recently she needs her kidney functioning rechecked, she has been having intermittent diarrhea after recent antibiotics, and she just wants to make sure her labs are okay before she goes home. CBC, chemistry, urinalysis, and C. difficile tests were ordered, if these are unremarkable plan is to discharge patient home with antihistamines to go along with her steroids and available EpiPen. Patient does state appreciation and agreement. Discussed with Awilda MCCONNELL who will follow up on this. (WERNER RODRIGUEZ) 05/20/20 10:21 Patient complains of pruritus returning and complains of mild redness to left wrist area, no definite urticarial lesions at this time. Will give additional liter of IV fluids in addition to a repeat dose of Benadryl. Consulted with Dr. forman who advises giving a single dose of Decadron at this time. 05/20/20 11:45 Patient continues tachycardic, patient with bilateral wheezing, consulted with Dr. forman who agrees that patient may likely require admission also recommends adding on a d-dimer as well as EKG and x-ray. 05/20/20 12:45 Patient with elevated dimer, CTA ordered at this time. Patient's heart rate presently 122 with respiratory rate of 26. 05/20/20 14:00 Patient sleeping, still awaiting CTA at this time. Patient's heart rate 114 and oxygen saturation at 88%, oxygen applied at 2 L via nasal cannula. Patient states that she is trying to get oxygen for home use in the past although her pulse ox was never low enough to qualify her to receive home oxygen. 05/20/20 16:43 CTA reviewed, no pneumonia or evidence of PE. Patient was ambulated in the hallway, patient maintaining her oxygen saturation at 94% without any tachypnea. Heart rate 100-106. Patient states that she does still have some pruritus to the left arm, very faint erythema to the left arm. Uncertain if there is due to urticarial lesions or from patient scratching at skin. Patient encouraged to avoid scratching at the skin. Patient does have scattered wheezing although does a history of COPD and does still smoke. Patient educated regarding need for smoking cessation. Consulted again with Dr. forman regarding patient's diagnostic evaluation and results of CT imaging. 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 (DEV NUNEZ) - Vital Signs Vital signs: Temp Pulse Resp BP Pulse Ox 98.2 F 125 H 13 121/65 95 05/20/20 17:01 05/20/20 02:50 05/20/20 17:01 05/20/20 17:00 05/20/20 17:01 - Laboratory Laboratory results interpreted by me: 05/20/20 05/20/20 05/20/20 08:52 08:52 08:52 WBC 12.2 H MCH 26.7 L RDW 14.6 H Seg Neuts % (Manual) 85 H Lymphocytes % (Manual) 7 L Abs Neuts (Manual) 10.9 H D-Dimer 3.76 H Sodium 136.4 L Carbon Dioxide 20 L BUN 37 H Est GFR ( Amer) 54 L Est GFR (MDRD) Non-Af 44 L Glucose 174 H Albumin 3.4 L Urine Ascorbic Acid 05/20/20 11:44 WBC MCH RDW Seg Neuts % (Manual) Lymphocytes % (Manual) Abs Neuts (Manual) D-Dimer Sodium Carbon Dioxide BUN Est GFR ( Amer) Est GFR (MDRD) Non-Af Glucose Albumin Urine Ascorbic Acid 20 H Labs- All tests 24 hr 05/20/20 05/20/20 05/20/20 08:39 08:52 08:52 WBC 12.2 H RBC 4.59 Hgb 12.2 Hct 37.3 MCV 81 MCH 26.7 L MCHC 32.8 RDW 14.6 H Plt Count 309 Lymph % (Auto) Not Reportable [place] % (Auto) Not Reportable Eos % (Auto) Not Reportable Baso % (Auto) Not Reportable Absolute Neuts (auto) Not Reportable Absolute Lymphs (auto) Not Reportable Absolute Monos (auto) Not Reportable Absolute Eos (auto) Not Reportable Absolute Basos (auto) Not Reportable Total Counted 100 Seg Neutrophils % Not Reportable Seg Neuts % (Manual) 85 H Band Neutrophils % 4 Lymphocytes % (Manual) 7 L Monocytes % (Manual) 3 Eosinophils % (Manual) 1 Basophils % (Manual) 0 Abs Neuts (Manual) 10.9 H Abs Lymphs (Manual) 0.9 Abs Monocytes (Manual) 0.4 Absolute Eos (Manual) 0.1 Abs Basophils (Manual) 0.0 Platelet Comment ADEQUATE Hypochromasia SLIGHT Poikilocytosis SLIGHT Anisocytosis SLIGHT Ovalocytes SLIGHT D-Dimer Sodium 136.4 L Potassium 4.8 Chloride 106 Carbon Dioxide 20 L Anion Gap 10 BUN 37 H Creatinine 1.19 Est GFR ( Amer) 54 L Est GFR (MDRD) Non-Af 44 L Glucose 174 H Calcium 8.7 Total Bilirubin 0.5 Direct Bilirubin 0.3 Neonat Total Bilirubin Not Reportable Neonat Direct Bilirubin Not Reportable Neonat Indirect Bili Not Reportable AST 20 ALT 16 Alkaline Phosphatase 66 Total Protein 6.6 Albumin 3.4 L Urine Color Urine Appearance Urine pH Ur Specific [place] Urine Protein Urine Glucose (UA) Urine Ketones Urine Blood Urine Nitrite Urine Bilirubin Urine Urobilinogen Ur Leukocyte Esterase Urine WBC (Auto) U Hyaline Cast (Auto) Urine Bacteria (Auto) Squamous Epi Cells Auto Urine Mucus (Auto) Urine Ascorbic Acid Stl C. Difficile GDH Ag NEGATIVE Stl C.difficile Tox A&B NEGATIVE 05/20/20 05/20/20 08:52 11:44 WBC RBC Hgb Hct MCV MCH MCHC RDW Plt Count Lymph % (Auto) [place] % (Auto) Eos % (Auto) Baso % (Auto) Absolute Neuts (auto) Absolute Lymphs (auto) Absolute Monos (auto) Absolute Eos (auto) Absolute Basos (auto) Total Counted Seg Neutrophils % Seg Neuts % (Manual) Band Neutrophils % Lymphocytes % (Manual) Monocytes % (Manual) Eosinophils % (Manual) Basophils % (Manual) Abs Neuts (Manual) Abs Lymphs (Manual) Abs Monocytes (Manual) Absolute Eos (Manual) Abs Basophils (Manual) Platelet Comment Hypochromasia Poikilocytosis Anisocytosis Ovalocytes D-Dimer 3.76 H Sodium Potassium Chloride Carbon Dioxide Anion Gap BUN Creatinine Est GFR ( Amer) Est GFR (MDRD) Non-Af Glucose Calcium Total Bilirubin Direct Bilirubin Neonat Total Bilirubin Neonat Direct Bilirubin Neonat Indirect Bili AST ALT Alkaline Phosphatase Total Protein Albumin Urine Color YELLOW Urine Appearance CLEAR Urine pH 5.0 Ur Specific [place] 1.010 Urine Protein NEGATIVE Urine Glucose (UA) NEGATIVE Urine Ketones NEGATIVE Urine Blood NEGATIVE Urine Nitrite NEGATIVE Urine Bilirubin NEGATIVE Urine Urobilinogen NEGATIVE Ur Leukocyte Esterase NEGATIVE Urine WBC (Auto) 1 U Hyaline Cast (Auto) 1 Urine Bacteria (Auto) 1+ Squamous Epi Cells Auto <1 Urine Mucus (Auto) RARE Urine Ascorbic Acid 20 H Stl C. Difficile GDH Ag Stl C.difficile Tox A&B 05/20/20 16:45 (DEV NUNEZ) Discharge <WERNER RODRIGUEZ - Last Filed: 05/20/20 08:27> <ENRIQUEDEV - Last Filed: 05/20/20 18:57> - Discharge Clinical Impression: Hives Allergic reaction Qualifiers: Encounter type: subsequent encounter Qualified Code(s): T78.40XD - Allergy, unspecified, subsequent encounter COPD (chronic obstructive pulmonary disease) Qualifiers: COPD type: unspecified COPD Qualified Code(s): J44.9 - Chronic obstructive pulmonary disease, unspecified Condition: Stable Disposition: HOME, SELF-CARE Additional Instructions: You have been evaluated for an allergic reaction again tonight. In addition to your prednisone also take the antihistamines prescribed for 1 week. Follow-up with your primary care provider tomorrow for recheck. If you develop difficulty swallowing or breathing, swelling of the face, tongue, lips, throat, etc. take your epi pen and return immediately emergency department. Return for any other concerning or worsening symptoms. Prescriptions: Famotidine [Pepcid 20 mg Tablet] 20 mg PO BID #14 tablet Hydroxyzine Pamoate [Vistaril 50 mg Capsule] 50 mg PO TID PRN #15 capsule PRN Reason: Referrals: SYLVIA MENDIETA MD [Primary Care Provider] - Follow up tomorrow ANDRADE SANTA MD [ACTIVE STAFF] - Follow up as needed
[2020-05-20] MEDS ORDERED: NORMAL SALINE 1000 ML 1,000 ML IV ONE ×2 (04:42→10:04)
[2020-05-20] MEDS ORDERED: LORAZEPAM INJ 2 MG/1 ML VIAL IV ONE (05:12)
[2020-05-20 09:24] LABS: HEMATOCRIT 37.3 % (36.0-47.0); HEMOGLOBIN 12.2 g/dL (12.0-15.5); MEAN CORPUSCULAR HEMOGLOBIN 26.7 pg (27.0-33.4); MEAN CORPUSCULAR HGB CONC 32.8 g/dL (32.0-36.0); MEAN CORPUSCULAR VOLUME 81 fl (80-97); PLATELET COUNT 309 10^3/uL (150-450); RED BLOOD COUNT 4.59 10^6/uL (3.72-5.28); RED CELL DISTRIBUTION WIDTH 14.6 % (11.5-14.0); WHITE BLOOD COUNT 12.2 10^3/uL (4.0-10.5)
[2020-05-20 09:52] LABS: ALBUMIN 3.4 g/dL (3.5-5.0); ALKALINE PHOSPHATASE 66 U/L (38-126); ANION GAP 10 (5-19); ASPARTATE AMINO TRANSFERASE 20 U/L (14-36); BILIRUBIN,DIRECT 0.3 mg/dL (0.0-0.4); BILIRUBIN,TOTAL 0.5 mg/dL (0.2-1.3); BLOOD UREA NITROGEN 37 mg/dL (7-20); CALCIUM 8.7 mg/dL (8.4-10.2); CARBON DIOXIDE 20 mmol/L (22-30); CHLORIDE 106 mmol/L (98-107); GLUCOSE 174 mg/dL (75-110); POTASSIUM 4.8 mmol/L (3.6-5.0); TOTAL PROTEIN 6.6 g/dL (6.3-8.2)
[2020-05-20] MEDS ORDERED: IPRATROPIUM/ALBUTEROL 0.5-2.5 MG/3 ML AMPUL NEB ONE (10:03)
[2020-05-20 10:05] LABS: ABSOLUTE LYMPHOCYTES# (MANUAL) 0.9 10^3/uL (0.5-4.7); ABSOLUTE MONOCYTES # (MANUAL) 0.4 10^3/uL (0.1-1.4); BAND NEUTROPHILS % (MANUAL) 4 % (3-5); BASOPHILS % (MANUAL) 0 % (0-2); EOSINOPHILS % (MANUAL) 1 % (0-6); LYMPHOCYTES % (MANUAL) 7 % (13-45); MONOCYTES % (MANUAL) 3 % (3-13); SEGMENTED NEUTROPHILS % (MAN) 85 % (42-78); TOTAL CELLS COUNTED 100
[2020-05-20 10:07] LABS: ANISOCYTOSIS SLIGHT; HYPOCHROMASIA SLIGHT; OVALOCYTES SLIGHT; POIKILOCYTOSIS SLIGHT
[2020-05-20 10:08] LABS: PLATELET COMMENT ADEQUATE
[2020-05-20] MEDS ORDERED: DEXAMETHASONE SOD PHOS INJ 10 MG/1 ML VIAL IV ONE (10:20)
[2020-05-20 10:34] LABS: C DIFFICILE GDH NEGATIVE (NEGATIVE)
[2020-05-20] MEDS ORDERED: DEXAMETHASONE SOD PHOSPHATE INJ 4 MG/1 ML VIAL IV ONE (10:45)
[2020-05-20 12:00] LABS: APPEARANCE,URINE CLEAR; BILIRUBIN,URINE NEGATIVE (NEGATIVE); COLOR,URINE YELLOW; GLUCOSE, URINE NEGATIVE (NEGATIVE); KETONES,URINE NEGATIVE (NEGATIVE); LEUKOCYTE ESTERASE,URINE NEGATIVE (NEGATIVE); NITRITE,URINE NEGATIVE (NEGATIVE); PROTEIN,URINE NEGATIVE (NEGATIVE); UROBILINOGEN,URINE NEGATIVE mg/dL (<2.0)
--- NOTE | 2020-05-20 12:41 | RADIOLOGY REPORT (SQ) ---
EXAM DESCRIPTION: CHEST SINGLE VIEW IMAGES COMPLETED DATE/TIME: 05/20/2020 12:33 pm REASON FOR STUDY: cough COMPARISON: 05/06/2020. EXAM PARAMETERS: NUMBER OF VIEWS: One view. TECHNIQUE: Single frontal radiographic view of the chest acquired. RADIATION DOSE: NA LIMITATIONS: None. FINDINGS: LUNGS AND PLEURA: No opacities, masses or pneumothorax. No pleural effusion. MEDIASTINUM AND HILAR STRUCTURES: No masses. Contour normal. HEART AND VASCULAR STRUCTURES: Normal heart size. Vascular calcifications. BONES: Partially visualize left shoulder arthroplasty. Anchors overlie right humerus. HARDWARE: None in the chest. OTHER: No other significant finding. IMPRESSION: No focal airspace disease or other evidence of acute cardiopulmonary process. TECHNICAL DOCUMENTATION: JOB ID: [id number] 2010 [employer]- All Rights Reserved Reading location - IP/workstation name: [email or web address]
--- NOTE | 2020-05-20 15:28 | RADIOLOGY REPORT (SQ) ---
EXAM DESCRIPTION: CTA CHEST IMAGES COMPLETED DATE/TIME: 05/20/2020 3:06 pm REASON FOR STUDY: sob, tachycardia, elevated d dimer COMPARISON: 05/07/2020 TECHNIQUE: CT scan of the chest performed using helical scanning technique with dynamic intravenous contrast injection. Images reviewed with lung, soft tissue and bone windows. Reconstructed coronal and sagittal MPR images reviewed. Additional 3 dimensional post-processing performed to develop Maximal Intensity Projection images (PA P). All images stored on PACS. All CT scanners at this facility use dose modulation, iterative reconstruction, and/or weight based d osing when appropriate to reduce radiation dose to as low as reasonably achievable (ALARA). [facility]: Dose Right [facility]: CareDose [facility]: Dose Right [facility]: Teradose 4D [facility]: simfy CONTRAST TYPE AND DOSE: contrast/concentration: Isovue 350.00 mmol/ml; Total Contrast Delivered: 74. 0 ml; Total Saline Delivered: 64.0 ml Omnipaque 350 100 cc Contrast bolus adequate for pulmonary arteries and aorta. RENAL FUNCTION: Creatinine 1.19 RADIATION DOSE: CT Rad equipment meets quality standard of care and radiation dose reduction techniq ues were employed. CTDIvol: 6.6 - 23.4 mGy. DLP: 819 mGy-cm. . LIMITATIONS: None. FINDINGS: LUNGS AND PLEURA: Stable chronic interstitial changes. More focal bilateral dependent hyp oventilatory change with improved aeration from prior exam. No definite airspace disease. No pleura l effusion. No pneumothorax. No discrete masses. AORTA AND GREAT VESSELS: No aneurysm. No dissection. Scattered atherosclerosis at the aortic arch a nd proximal great vessels. HEART: No pericardial effusion. No significant coronary artery calcifications. PULMONARY ARTERIES: No pulmonary embolus. Normal right to left ventricular ratio. HILAR AND MEDIASTINAL STRUCTURES: No discrete hilar adenopathy. Shotty mediastinal nodes. Largest p retracheal node measures 8 mm in short axis. HARDWARE: None in the chest. UPPER ABDOMEN: No significant findings. Limited exam. THYROID AND OTHER SOFT TISSUES: No masses. No adenopathy. BONES: No acute bony abnormality. No discrete lytic or blastic osseous lesions. Partially visualize d left humeral hardware. 3D MIPS: Confirm above findings. OTHER: No other significant finding. IMPRESSION: 1. No evidence of pulmonary embolus. No acute aortic pathology. 2. Stable chronic interstitial change without other evidence of other acute cardiopulmonary process. COMMENT: Quality ID # [id number]: Final reports with documentation of one or more dose reduction techniques (e.g., Automated exposure control, adjustment of the mA and/or kV according to patient size, use of iterative reconstruction technique) TECHNICAL DOCUMENTATION: JOB ID: [id number] 2010 [employer]- All Rights Reserved Reading location - IP/workstation name: [email or web address]
[2020-05-20 17:17] VITALS: BP 121/65
--- NOTE | 2020-05-20 19:40 | EKG REPORT ---
SEVERITY:- ABNORMAL ECG - SINUS TACHYCARDIA BORDERLINE INFERIOR Q WAVES ABNORMAL T, CONSIDER ISCHEMIA, INFERIOR LEADS : Confirmed by: Nicole Huber MD 20-May-2020 19:40:13
== END 2020-05-20 17:17 | disposition home or self-care (01) ==
LOC: ER 02:46
DX: T78.40XA Allergy, unspecified, initial encounter (principal); X58.XXXA Exposure to other specified factors, initial encounter; L50.9 Urticaria, unspecified; J44.9 Chronic obstructive pulmonary disease, unspecified; R05 Cough; G25.81 Restless legs syndrome; R19.7 Diarrhea, unspecified; R00.0 Tachycardia, unspecified; R79.89 Other specified abnormal findings of blood chemistry; F17.200 Nicotine dependence, unspecified, uncomplicated; I10 Essential (primary) hypertension; Z88.8 Allergy status to other drugs, medicaments and biological substances; Z88.0 Allergy status to penicillin; Z88.2 Allergy status to sulfonamides; Z88.7 Allergy status to serum and vaccine; Z87.01 Personal history of pneumonia (recurrent)
CPT/HCPCS: 93005; 96376; 94640 ×2; 99285; 96372; 96361; 96374; 96375; 36415; 85025; 80053; 81001; 85379; 87324; 87449; 71045; 71275; 93010; J1100 ×2; J1200; J0171; J2930; J2060; J7030; S0028; A9270

== ENCOUNTER → 2020-08-13 | Outpatient (CLI) | payer MEDICARE ==
--- NOTE | 2020-08-13 14:43 | ST Modified Barium Swallow ---
Recommendation - Recommendations Recommendations: Recommend continuing with current diet, no signs of aspiration of pharyngeal phase dysphagia. Patient may benefit from GI consult due to nature of symptoms. Medical Diagnoses - Medical Diagnoses Medical Diagnosis Description & ICD-10 Code(s): cough, dysphagia R13.10 Other Medical Diagnoses/Co-Morbidities: per patient report: reflux, COPD, back pain - ICD-10 Tx Diagnosis Coding (1) Cough ICD-10 Code(s): R05 - COUGH (2) Gastro-esophageal reflux disease without esophagitis ICD-10 Code(s): K21.9 - GASTRO-ESOPHAGEAL REFLUX DISEASE WITHOUT ESOPHAGITIS ST Modified Barium Swallow - General Date: 08/13/20 Referring Physician: Dr. Crooks Risks/Precautions: None Date of Onset: 07/28/19 - approximate onset date Reason for Referral: coughing when eating - History History obtained from: Patient - Patient attended evaluation independently and acted as her own historian. -: Medical - The patient reports noticing difficulty swallowing for approximately 1 year. Reports some coughing with PO and occasional globus sensation. No recent pneumonias reported and no changes to diet textures. Medications: per physician note: prednisone, lexapro, rosuvastatin calcium, omeprazole, norvasc, aldactone, anoro ellipta, incruse ellipta, ventolin HFA Allergies: per patient report: penicillin, sulfa, tetanus vaccine - Functional Status Prior Functional Status: INDEPENDENT: feeding Current Functional Limitations: feeding - Subjective Patient/caregiver goal(s): safe swallow Cognitive-Linguistic Function: WNL Speech Intelligibility: WNL Current Nutritional Means: PO Current PO diet: Regular Current symptoms: Coughing Pain: Patient reports, 2/5 - back pain, chronic - Objective Assessment: Upright, Left Lateral - Food Trials Used Food trials used: Thin liquids, Pureed, Regular The patient: Was Able to Self Feed - Oral-Motor Skills Dentition: Partial Laryngeal Function: clear voicing - Assessment Oral prep: Normal Labial closure: Adequate Leakage: None Mastication: Adequate Lingual Movement: Normal Oral stage: Normal for this Procedure - Pharyngeal Stage Initiation of Pharyngeal Stage Reflex: Normal Decreased laryngeal elevation: No Reduced Velopharyngeal Closure: no Reduced pressure generation: No reduced tongue-based retraction: No Pre-swallow pooling in valleculae: None Pre-Swallow pooling in pyriforms: None Reduced Thyro-Hyoid approximation: No Reduced epiglottic excursion: No Reduced pharyngeal peristalsis/contraction: No Post-swallow residulas vallecular: None Post-Swallow residuals in pyriforms: None - Esophageal Stage Cricopharyngeal Function: Normal Upper Esophageal Transit: Normal Esophageal Stage: No overt signs of esophageal deficits, however, this assessment tool is not specifically designed to evaluate esophageal function. - Fall Risk Assessment Medications/Conditions that increase fall risks include: Antidepressants, sedatives, anti-arrhythmic, diuretic, benzodiazipenes, neuroleptics. BP regulation problems, cardiac problems, balance or gait deficits, neurological problems. Fall Risk Actions Taken: No action needed - Behavioral Observations During evaluation process patient: able to answer questions, provided medical history - Treatment / Educational Needs: Treatment/Education Needs: Treatment consisted of patient education on the role of the Speech Pathologist. Patient's plan of care and golas were communicated as well as scheduling and attendance policies. Recommendations for initial home program were shared. Patient demonstrated understanding and verbalized agreement. - Impression/Summary Laryngeal Penetration: No Tracheal Aspiration: no Patient presents with: Normal swallow at eval Risk of Aspiration: Minimal Evaluation and Findings: Patient presented with oral and pharyngal swallowing skills within normal limits. No aspiration, penetration, or significant residue seen on study. The patient did note sensation of residue x1, however, field was clear on fluoroscopy. - Recommendations Solid diet recommendations: Regular Liquid Diet Modification: Thin Dysphagia therapy with GWOT IA/ILO INTELLIGENCE SUPPORT: no Recommended techniques: Fully Upright During Meal Information, Precautions and Recommendations: Patient (Written), Patient (Verbal) - Time Total Time: 30 - Plan of Care Strategies to optimize patient understanding include:: ongoing assessment of educational needs, implementation of educational strategies, and re-education. - - -: Thank you for the opportunity to work with this patient and his/her family. Should you have any questions about this patient's plan or progress, I can be reached at [phone].
--- NOTE | 2020-08-13 16:30 | RADIOLOGY REPORT (SQ) ---
EXAM DESCRIPTION: COOKIE SWALLOW IMAGES COMPLETED DATE/TIME: 08/13/2020 9:25 am REASON FOR STUDY: COUGH/GASTRO ESOPHAGEAL REFLUX K21.9 GASTRO-ESOPHAGEAL REFLUX DISEASE WITHOUT ESO PHAGITIS R05 COUGH COMPARISON: None. TECHNIQUE: Videofluoroscopic swallowing examination was performed in conjunction with speech patholo gy. Videofluoroscopic imaging was obtained and reviewed and these are the findings: RADIATION DOSE: Fluoro time 1.8 minutes 1 images saved to PACS. LIMITATIONS: None FINDINGS: The patient was brought into the fluoro room and placed upright on a modified barium swall ow chair. The patient was then given multiple consistencies mixed with barium to swallow under live fluoroscopic video guidance. According to the Speech Pathologist there was no penetration or aspirat ion. Please refer to the speech pathology report for further details. IMPRESSION: NO EVIDENCE OF PENETRATION OR ASPIRATION. PLEASE SEE SPEECH PATHOLOGIST REPORT FOR OTHER FINDINGS AND RECOMMENDATIONS. COMMENT: None Quality ID [id number]: Final reports for procedures using fluoroscopy that document radiation exposure latonya kan, or exposure time and number of fluorographic images (if radiation exposure indices are not avail able) TECHNICAL DOCUMENTATION: JOB ID: [id number] 2010 [employer]- All Rights Reserved Reading location - IP/workstation name: [email or web address]
--- NOTE | 2020-08-13 16:54 | RADIOLOGY REPORT (SQ) ---
EXAM DESCRIPTION: CHEST 2 VIEWS IMAGES COMPLETED DATE/TIME: 08/13/2020 9:26 am REASON FOR STUDY: COPD COMPARISON: 05/20/2020 EXAM PARAMETERS: NUMBER OF VIEWS: two views TECHNIQUE: Digital Frontal and Lateral radiographic views of the chest acquired. RADIATION DOSE: NA LIMITATIONS: none FINDINGS: LUNGS AND PLEURA: Mild chronic interstitial changes. No acute infiltrate or effusion. No mass. MEDIASTINUM AND HILAR STRUCTURES: No masses or contour abnormalities. HEART AND VASCULAR STRUCTURES: Heart normal size. No evidence for failure. BONES: No acute findings. HARDWARE: None in the chest. OTHER: No other significant finding. IMPRESSION: Chronic lung changes with no acute cardiopulmonary finding. TECHNICAL DOCUMENTATION: JOB ID: [id number] 2010 [employer]- All Rights Reserved Reading location - IP/workstation name: [email or web address]
== END ==
LOC: RAD 09:00
PROVIDERS: ATTEND Internal Medicine Pulmonary Disease
DX: J44.9 Chronic obstructive pulmonary disease, unspecified (principal); K21.9 Gastro-esophageal reflux disease without esophagitis; R05 Cough; R13.10 Dysphagia, unspecified
CPT/HCPCS: 71046; 74230

== ENCOUNTER → 2020-10-03 | Outpatient (CLI) | payer MEDICARE ==
--- NOTE | 2020-10-03 15:41 | RADIOLOGY REPORT (SQ) ---
EXAM DESCRIPTION: CT CHEST WITHOUT IMAGES COMPLETED DATE/TIME: 10/03/2020 3:21 pm REASON FOR STUDY: (J44.1)CHRONIC OBSTRUCTIVE PULMONARY DISEASE W (ACUTE) EXACERBATION J44.1 CHRONIC OBSTRUCTIVE PULMONARY DISEASE W (ACUTE) EXACER COMPARISON: Multiple, most recent 05/20/2020. TECHNIQUE: CT scan performed of the chest without intravenous contrast. Images reviewed with lung, soft tissue and bone windows. Reconstructed coronal and sagittal MPR images reviewed. All images st ored on PACS. All CT scanners at this facility use dose modulation, iterative reconstruction, and/or weight based d osing when appropriate to reduce radiation dose to as low as reasonably achievable (ALARA). [facility]: Dose Right [facility]: CareDose [facility]: Dose Right [facility]: Teradose 4D [facility]: [employer] RADIATION DOSE: CT Rad equipment meets quality standard of care and radiation dose reduction techniq ues were employed. CTDIvol: 21.5 mGy. DLP: 880 mGy-cm. mGy. LIMITATIONS: No technical limitations. FINDINGS: LUNGS AND PLEURA: Chronic interstitial changes. Stable mild honeycombing in both lungs. No suspicious nodules or infiltrate. HILAR AND MEDIASTINAL STRUCTURES: No identified masses or abnormal nodes. No obvious aneurysm. HEART AND VASCULAR STRUCTURES: No aneurysm. No pericardial effusion. UPPER ABDOMEN: No significant findings. Limited exam. THYROID AND OTHER SOFT TISSUES: No masses. No adenopathy. BONES: No significant finding. HARDWARE: None in the chest. OTHER: No other significant findings. IMPRESSION: Stable chronic changes. TECHNICAL DOCUMENTATION: JOB ID: [id number] Quality ID # [id number]: Final reports with documentation of one or more dose reduction techniques (e.g., Au tomated exposure control, adjustment of the mA and/or kV according to patient size, use of iterative reconstruction technique) 2010 [employer]- All Rights Reserved Reading location - IP/workstation name: [email or web address]
== END ==
LOC: RAD 14:55
PROVIDERS: ATTEND Internal Medicine Pulmonary Disease
DX: J44.1 Chronic obstructive pulmonary disease with (acute) exacerbation (principal)
CPT/HCPCS: 71250

== ENCOUNTER → 2020-10-03 | Outpatient (CLI) | payer MEDICARE ==
[2020-10-03 16:32] LABS: ABSOLUTE LYMPHOCYTES (AUTO) 1.6 10^3/uL (0.5-4.7); ABSOLUTE MONOCYTES (AUTO) 0.5 10^3/uL (0.1-1.4); ABSOLUTE NEUT (AUTO) 9.5 10^3/uL (1.7-8.2); BASOPHILS % (AUTO) 0.4 % (0-2); EOSINOPHILS % (AUTO) 0.2 % (0-6); HEMATOCRIT 43.8 % (36.0-47.0); HEMOGLOBIN 14.4 g/dL (12.0-15.5); LYMPHOCYTES % (AUTO) 13.9 % (13-45); MEAN CORPUSCULAR HEMOGLOBIN 27.1 pg (27.0-33.4); MEAN CORPUSCULAR HGB CONC 32.9 g/dL (32.0-36.0); MEAN CORPUSCULAR VOLUME 83 fl (80-97); PLATELET COUNT 263 10^3/uL (150-450); RED BLOOD COUNT 5.31 10^6/uL (3.72-5.28); SEGMENTED NEUTROPHILS % (AUTO) 81.5 % (42-78); TOTAL CELLS COUNTED % (AUTO) 100 %; WHITE BLOOD COUNT 11.7 10^3/uL (4.0-10.5)
[2020-10-03 16:48] LABS: ALBUMIN 4.2 g/dL (3.5-5.0); ALKALINE PHOSPHATASE 75 U/L (38-126); ANION GAP 12 (5-19); ASPARTATE AMINO TRANSFERASE 22 U/L (14-36); BILIRUBIN,DIRECT 0.3 mg/dL (0.0-0.4); BILIRUBIN,TOTAL 0.5 mg/dL (0.2-1.3); BLOOD UREA NITROGEN 31 mg/dL (7-20); CALCIUM 9.4 mg/dL (8.4-10.2); CARBON DIOXIDE 21 mmol/L (22-30); CHLORIDE 102 mmol/L (98-107); GLUCOSE 96 mg/dL (75-110); POTASSIUM 5.9 mmol/L (3.6-5.0); TOTAL PROTEIN 7.3 g/dL (6.3-8.2)
== END ==
LOC: OD 15:52
PROVIDERS: ATTEND Internal Medicine Pulmonary Disease
DX: J44.1 Chronic obstructive pulmonary disease with (acute) exacerbation (principal)
CPT/HCPCS: 36415; 80053; 83880; 85025; 87070; 87205

== ENCOUNTER → 2020-10-11 | Outpatient (CLI) | payer MEDICARE ==
[2020-10-11 14:44] LABS: ANION GAP 8 (5-19); BLOOD UREA NITROGEN 31 mg/dL (7-20); CARBON DIOXIDE 20 mmol/L (22-30); CHLORIDE 107 mmol/L (98-107); GLUCOSE 151 mg/dL (75-110); POTASSIUM 5.4 mmol/L (3.6-5.0)
== END ==
LOC: OD 13:35
PROVIDERS: ATTEND Internal Medicine Pulmonary Disease
DX: J44.1 Chronic obstructive pulmonary disease with (acute) exacerbation (principal)
CPT/HCPCS: 36415; 80048